=== PATIENT | male | born 1945 | race Caucasian/White ===

== ENCOUNTER 2024-04-30 20:25 | Inpatient (IN) ==
[~2024-04-30 20:25] MED LIST: KETAMINE HCL INJ 50 MG/ML 10 ML VIAL IV ONE; ROCURONIUM BROMIDE 10 MG/ML 5 ML VIAL IV ONE
[2024-04-30] MEDS ORDERED: PROPOFOL BOLUS FROM BAG IV PRN ×2 (20:45→23:45)
[2024-04-30] MEDS ORDERED: propofoL 1,000 MG/100 ML VIAL IV SCH (20:45)
--- NOTE | 2024-04-30 20:55 | Emergency Department Note ---
Impression & Plan Respiratory failure, Pleural effusion, Hypoxia ED Provider Note NAME: PHU AGUIRRE AGE: 78 SEX: M : 1945 ARRIVES VIA: Ambulance INFORMANT: Patient, EMS ED PROVIDER(S): Ferny Haley DO CHIEF COMPLAINT: Difficulty breathing HPI: The patient is a 78-year-old male who presented to the emergency department for an evaluation of difficulty breathing. The patient has a history of respiratory problems in the past. He normally wears oxygen. He was found by his daughter without his oxygen on. He was having severe difficulty breathing. They called 911. The prehospital personnel initially started the patient on supplemental oxygen but it is not doing well. When they intercepted with ALS the patient was much more obtunded and required intervention. He was placed on BiPAP with some improvement of his symptoms. Upon arrival the patient was listless but he was able to answer some questions. He states he was having no chest pain. He does complain of a cough as well as significant difficulty breathing. He denies having any fever. ROS: See above HPI for pertinent positives & negatives. A total of 10 systems reviewed and were otherwise negative. PAST MEDICAL HISTORY: See Below PAST SURGICAL HISTORY: See Below FAMILY HISTORY: See Below SOCIAL HISTORY: See Below HOME MEDICATIONS: See Below ALLERGIES: See Below VITALS: See Below PHYSICAL EXAMINATION: GENERAL: The patient was listless and slow to respond to questions. He falls asleep easily. EYES: The conjunctivae are clear. The pupils are round and reactive. EARS, NOSE, MOUTH AND THROAT: The nose is without any evidence of any deformity. NECK: The neck is nontender and supple. RESPIRATORY: Shallow respirations with diminished breath sounds were noted throughout. CARDIOVASCULAR: Tachycardic and irregular heart sounds were noted auscultation. There is no definite murmur. GASTROINTESTINAL: The abdomen is soft. Abdomen is nontender. MUSCULOSKELETAL/EXTREMITIES: There is no evidence of gross deformity full range of motion is noted in the hips and shoulders. SKIN: Chronic venous stasis changes were noted in both lower extremities. There was erythema both lower extremities with pitting edema. NEUROLOGIC: Patient is awake and oriented to person place and situation. MEDICAL DECISION MAKING: The patient is a 78-year-old male who presented to the emergency department for respiratory distress. The patient was found at home not wearing his oxygen. The patient has a history of chronic lung issues. The patient was brought to the emergency department in extremis. The patient was placed on BiPAP and did have some improvement prior to arrival but his presentation appeared to be consistent with severe respiratory distress in need of intubation. The patient was intubated in usual fashion. The patient was reevaluated multiple times. I discussed the patient's laboratory and radiographic studies with him. [facility] have agreed to evaluate the patient in the emergency department for further management and disposition. Triage Nursing notes reviewed. Prior medical records reviewed Vital Signs: reviewed and remarkable for hypoxia. Differential diagnosis: Reactive airway disease, pneumonia, pneumothorax, COPD, CHF, infections, cardiac ischemia, pulmonary embolism, musculoskeletal, gastrointestinal, as well as other pathologies. ER treatment provided: See below Diagnostics interpreted by me: ECG: EKG was obtained in the emergency department. My interpretation is atrial fibrillation at 111 bpm. There were no PVCs noted. Right bundle branch block pattern was noted. Nonspecific ST abnormalities were noted. No previous tracing was available. Cardiac Monitoring: An order was placed for continuous cardiac monitoring. The monitor shows a rate of 82 bpm with atrial fibrillation. Laboratory studies: As stated above and show below. Imaging studies: See below. Radiographic imaging was reviewed by myself Consultation(s): I discussed this case with Dr. Patel who is on-call for the [facility]. ED COURSE: Procedures: Endotracheal Intubation Indication respiratory distress. The patient was on 100% oxygen via NRB prior to the procedure. Suction, airway equipment, RSI drugs, respiratory equipment, and appropriate personnel were prepared prior to the initiation of the procedure. A time out was taken. Induction was performed with ketamine and rocuronium. After observing the clinical benefit of the medications, the airway was easily visualized utilizing a glide scope. A 8.0 size ETT tube was placed atraumatically to 23 cm using standard technique. The cuff inflated without signs of malfunction. There were bilateral breath sounds, positive colormetric change, no gastric sounds, a good capnography waveform, and post procedure pulse oximetry was 95%. Post intubation sedation and paralysis was administered using propofol. There were no complications. Critical Care: I have personally spent greater than 55 minutes of critical care time in the direct management of this patient. This includes bedside care, interpretation of diagnostic studies, and testing, discussion with consultants, patient, and family members, and other required patient management activities. This 55 minutes is in excess of all separately billable procedures. Past Med/Surg History Problem List (Updated 05/01/24 @ 00:28 by Ferny Haley DO) Hypoxia (Acute) Pleural effusion (Acute) Respiratory failure (Acute) Lactic acid acidosis Metabolic encephalopathy Acute and chronic respiratory failure with hypoxia CHF exacerbation Social History Smoking Status: Never smoker Do You Dip or Chew Tobacco: No; Hx Alcohol Use: No Hx Substance Use: No Preferred Language: Hong Konger Communication Ability: intubated Communication Ability Comment: intubated Pc Tech Required: No Beliefs That Will Affect Care: None Current Living Situation: Family Current Living Situation Comment: with son and daughter in law Other Information That Helps Us Care for You: No Feels Safe at Home: Yes Safety Concerns: Feels Safe At This Time Assistive Devices: Cane, Glasses and Walker Assistive Devices Comment: amplifier for ears Allergies Allergies Allergy/AdvReac Type Severity Reaction Status Date / Time No Known Allergies Allergy Verified 04/30/24 22:09 Results & Data (ED) Vital Signs Vital Signs - 24 hr 04/30/24 20:15 04/30/24 20:34 04/30/24 20:50 Temperature 36.4 C L Temperature Source Axillary Pulse Rate 109 H 113 H 95 H Respiratory Rate 25 H 20 Respiratory Effort / Characteristics Labored Blood Pressure 165/142 H 66/46 L Blood Pressure Mean 149 54 Pulse Oximetry 91 100 Oxygen Delivery Method CPAP Mechanical Vent Fraction of Inspired Oxygen 100 Sepsis New/Unexplained Change in Mental Status Yes Sepsis Action Taken by Nursing Physician Notified End-Tidal CO2 04/30/24 20:50 04/30/24 20:55 04/30/24 20:57 Temperature Temperature Source Pulse Rate 101 H 98 H Respiratory Rate 20 20 20 Respiratory Effort / Characteristics Blood Pressure 78/51 L Blood Pressure Mean 63 Pulse Oximetry 98 100 100 Oxygen Delivery Method Mechanical Vent Mechanical Vent Fraction of Inspired Oxygen 100 100 Sepsis New/Unexplained Change in Mental Status Sepsis Action Taken by Nursing End-Tidal CO2 37 04/30/24 21:00 04/30/24 21:05 04/30/24 21:10 Temperature Temperature Source Pulse Rate 105 H 109 H 118 H Respiratory Rate 20 20 20 Respiratory Effort / Characteristics Blood Pressure 107/62 112/80 129/95 Blood Pressure Mean 77 91 112 Pulse Oximetry 100 99 99 Oxygen Delivery Method Mechanical Vent Mechanical Vent Mechanical Vent Fraction of Inspired Oxygen 70 70 70 Sepsis New/Unexplained Change in Mental Status Sepsis Action Taken by Nursing End-Tidal CO2 04/30/24 21:15 04/30/24 21:15 04/30/24 21:20 Temperature Temperature Source Pulse Rate 106 H 112 H 109 H Respiratory Rate 16 20 20 Respiratory Effort / Characteristics Blood Pressure 121/88 121/88 129/100 Blood Pressure Mean 99 103 114 Pulse Oximetry 98 99 99 Oxygen Delivery Method Mechanical Vent Mechanical Vent Mechanical Vent Fraction of Inspired Oxygen 70 70 40 Sepsis New/Unexplained Change in Mental Status Sepsis Action Taken by Nursing End-Tidal CO2 04/30/24 21:25 04/30/24 21:30 04/30/24 21:35 Temperature Temperature Source Pulse Rate 119 H 110 H 110 H Respiratory Rate 20 20 20 Respiratory Effort / Characteristics Blood Pressure 126/86 126/90 136/107 H Blood Pressure Mean 100 102 112 Pulse Oximetry 94 94 94 Oxygen Delivery Method Mechanical Vent Mechanical Vent Mechanical Vent Fraction of Inspired Oxygen 40 40 40 Sepsis New/Unexplained Change in Mental Status Sepsis Action Taken by Nursing End-Tidal CO2 04/30/24 21:40 04/30/24 21:45 04/30/24 21:56 Temperature Temperature Source Pulse Rate 116 H 104 H 109 H Respiratory Rate 20 20 20 Respiratory Effort / Characteristics Blood Pressure 135/99 133/104 H 108/75 Blood Pressure Mean 107 109 88 Pulse Oximetry 95 95 98 Oxygen Delivery Method Mechanical Vent Mechanical Vent Mechanical Vent Fraction of Inspired Oxygen 40 40 40 Sepsis New/Unexplained Change in Mental Status Sepsis Action Taken by Nursing End-Tidal CO2 04/30/24 22:00 04/30/24 22:05 Temperature Temperature Source Pulse Rate 103 H 98 H Respiratory Rate 20 20 Respiratory Effort / Characteristics Blood Pressure 136/102 H 131/100 Blood Pressure Mean 109 114 Pulse Oximetry 94 93 Oxygen Delivery Method Mechanical Vent Mechanical Vent Fraction of Inspired Oxygen 40 40 Sepsis New/Unexplained Change in Mental Status Sepsis Action Taken by Nursing End-Tidal CO2 32 Home Medications Current Medication List: was personally reviewed by me Laboratory Data Attestation: I reviewed the patient's lab results. 04/30/24 20:32 04/30/24 20:32 Lab Results 04/30/24 04/30/24 04/30/24 Range/Units 20:32 21:01 21:03 WBC 12.19 H (4.8-10.8) K/ul RBC 4.39 L (4.70-6.10) M/uL Hgb 12.8 L (14.0-18.0) g/dl POC Hgb 12.9 L (14.0-18.0) g/dl Hct 44.8 (42.0-52.0) % POC Hct 38 L (42-52) % MCV 102.1 H (80.0-100.0) fL MCH 29.2 (25.0-34.0) pg MCHC 28.6 L (32.0-36.0) g/dL RDW Std Deviation 67.2 H (36.4-46.3) fL RDW Coeff of Brent 18.0 H (11.5-14.5) % Plt Count 209 (130-400) K/uL MPV 11.5 (9.4-12.4) fL Immature Gran % (Auto) 1.2 % Neut % (Auto) 89.5 % Lymph % (Auto) 4.3 % Crawford % (Auto) 4.6 % Eos % (Auto) 0.1 % Baso % (Auto) 0.3 % Neut # (Auto) 10.91 H (1.40-6.50) K/uL Lymph # (Auto) 0.52 L (1.20-3.40) K/uL Crawford # (Auto) 0.56 (0.11-0.59) K/uL Eos # (Auto) 0.01 (0.00-0.50) K/uL Baso # (Auto) 0.04 (0.00-0.20) K/uL Immature Gran # (Auto) 0.15 (0.01-0.20) K/uL Polychromasia 1+ Ovalocytes 1+ PT 12.7 H (9.0-12.0) Seconds INR 1.2 H (0.9-1.1) APTT 27 (21-31) Seconds PTT Ratio 1.0 POC pH 7.47 H (7.35-7.45) POC pCO2 53 H (35-46) mmHg POC pO2 185 H (80-95) mmHg POC HCO3 39 H (19-24) karyna/L POC Total CO2 40 H (24-31) mmol/L POC Base Excess 15.0 H (-9-1.8) karyna/L POC ABG O2 Sat 100.0 H (90-95) % POC Sodium 140 (135-144) mmol/L Sodium 142 (136-145) mmol/L POC Potassium 4.2 (3.3-5.0) mmol/L Potassium 4.7 (3.5-5.1) mmol/L Chloride 93 L (98-107) mmol/L Carbon Dioxide 43 H* (21-32) mmol/L Anion Gap 6 (3-11) BUN 24 H (6-23) mg/dl Creatinine 1.20 (0.6-1.4) mg/dl Est Cr Clr Drug Dosing 67.7 ml/min eGFR 61.90 BUN/Creatinine Ratio 20.0 (10-20) Glucose 151 H (70-99(Fasting)) mg/dl Lactate 3.3 H* (0.4-2.0) mmol/L Calcium 9.8 (8.6-10.3) mg/dl Magnesium 2.6 H (1.7-2.4) mg/dl Total Bilirubin 1.1 H (0.2-1.0) mg/dl Direct Bilirubin 0.4 H (0-0.2) mg/dl AST 30 (13-39) U/L ALT 17 (7-52) U/L Alkaline Phosphatase 93 (34-104) U/L Troponin I High Sens 22.1 H (0-20) pg/ml B-Natriuretic Peptide 506 H (0-100) pg/ml Total Protein 7.5 (6.0-8.3) gm/dl Albumin 3.9 (3.4-5.0) gm/dl Procalcitonin 0.19 (0-0.5) ng/ml Urine Color Dark Yellow Urine Appearance Turbid A (Clear) Urine pH 5.0 (4.5-7.5) Ur Specific Witherbee 1.030 (1.000-1.030) Urine Protein 3+ H (Negative) Urine Glucose (UA) 3+ H (Negative) Urine Ketones 1+ H (Negative) Urine Blood Negative (Negative) Urine Nitrite Negative (Negative) Urine Bilirubin 2+ H (Negative) Urine Urobilinogen Negative (Negative) Ur Leukocyte Esterase Trace H (Negative) Urine WBC (Auto) 21-50 H (0-5) /hpf Urine RBC (Auto) 11-20 H (0-2) /hpf U Hyaline Cast (Auto) >20 H (0-2) /lpf U Epithel Cells (Auto) 0-2 (0-2) /hpf Urine Bacteria (Auto) 2+ H (None Seen) Calcium Oxalate Crystal Present A (None Prsent) Amorphous Sediment Present A (None Prsent) Administered Medications Norepinephrine Bitartrate (Levophed/D5w) 4 mg in 250 mls @ 23.7 mls/hr IV .[id number] [facility]; Protocol Stop: 05/30/24 23:29 Last Admin: 04/30/24 23:51 Dose: 0.05 mcg/kg/min, 23.7 mls/hr Documented By: [id number] Co-signed By: TP Heparin Sodium/Dextrose (Heparin [id number] Unit/500 Ml D5w) 25,000 units in 500 mls @ 20 mls/hr IV .Q24H GERALDINE; Protocol Stop: 05/30/24 23:44 Last Admin: 05/01/24 00:00 Dose: 1,000 units/hr, 20 mls/hr Documented By: [id number] Co-signed By: TP Propofol (Diprivan) 1,000 mg in 100 mls @ 22.752 mls/hr IV .Q4H24M [facility]; Protocol Stop: 05/03/24 23:44 Last Titration: 04/30/24 23:45 Dose: 30 mcg/kg/min, 22.8 mls/hr Documented By: [id number] Admin: 04/30/24 23:30 Dose: 20 mcg/kg/min, 15.2 mls/hr Documented By: [id number] Co-signed By: HSM Insulin Aspart (Insulin Aspart Per Unit Charge) 0 units SC Q6 GERALDINE Stop: 05/31/24 00:00 Last Admin: 05/01/24 00:17 Dose: Not Given Documented By: [id number] Discontinued Medications Heparin Sodium/Dextrose (Heparin Iv Adult Wt-Based Low-Dose *No* Initial Bolus Protocol) 1 each IV ONE STA; Protocol Stop: 04/30/24 23:34 Last Admin: 05/01/24 00:00 Dose: 1 each Documented By: [id number] Sodium Chloride (Nss) 1,000 mls @ 999 mls/hr IV .Q1H1M ONE Stop: 04/30/24 21:52 Last Infusion: 04/30/24 21:58 Dose: Infused Documented By: Admin: 04/30/24 21:07 Dose: 999 mls/hr Documented By: FLAVIO Ceftriaxone Sodium (Rocephin) 2,000 mg in 50 mls @ 100 mls/hr IV NOW STA Stop: 04/30/24 21:21 Last Infusion: 04/30/24 21:58 Dose: Infused Documented By: Admin: 04/30/24 21:22 Dose: 100 mls/hr Documented By: FLAVIO Ioversol (Optiray 320 125ml) 119 ml IV ONCE ONE Stop: 04/30/24 22:21 Last Admin: 04/30/24 22:20 Dose: 119 ml Documented By: [email or web address] Miscellaneous (Rapid Sequence Induction Bag) Confirm Administered Dose 1 each N/A .STK-MED ONE Stop: 04/30/24 20:21 Last Admin: 04/30/24 23:59 Dose: Not Given Documented By: [id number] Miscatalinoaneous (Stat Iv Infusion Titration Per Protocol) 1 each N/A NOW STA Stop: 04/30/24 20:46 Last Admin: 05/01/24 00:00 Dose: Not Given Documented By: [id number] Propofol (Propofol Iv Emulsion 10 Mg/Ml 100 Ml Vial) Confirm Administered Dose 1,000 mg IV .STK-MED ONE Stop: 04/30/24 20:33 Last Admin: 04/30/24 21:07 Dose: Not Given Documented By: FLAVIO Propofol (Propofol Iv Emulsion 10 Mg/Ml 100 Ml Vial) Confirm Administered Dose 1,000 mg IV .STK-MED ONE Stop: 04/30/24 22:51 Last Admin: 05/01/24 00:00 Dose: Not Given Documented By: [id number] Imaging Data Attestation: I personally reviewed and interpreted this imaging study as follows: My Impression: 1 view chest x-ray was obtained in the emergency department. My interpretation is pleural effusions noted bilaterally, final report below. CT of the brain was obtained in the emergency department. My interpretation is no intracranial hemorrhage or mass effect, final report below Radiologist's Impression: Chest X-Ray 04/30/24 20:44 Exam(s): XR CXR 1 VIEW EXAM: XR Chest, 1 View CLINICAL HISTORY: Reason for exam: Sepsis. TECHNIQUE: Frontal view of the chest. COMPARISON: No relevant prior studies available. FINDINGS: Lungs: Bibasilar airspace disease, atelectasis or pneumonia. Interstitial prominence. Pleural space: Small pleural effusions, right greater than left. No pneumothorax. Heart: Cardiac silhouette is magnified on this AP projection. There is vascular congestion. Bones/joints: No acute fracture. No dislocation. Tubes, lines and devices: Endotracheal tube 2.4 cm from the joaquín. IMPRESSION: 1. Bibasilar airspace disease, atelectasis or pneumonia. 2. Endotracheal tube 2.4 cm from the joaquín. 3. Small pleural effusions, right greater than left. 4. Vascular congestion and likely interstitial edema. Electronically signed by: Martin Escalera M.D. 04/30/24 22:42 PM Abdomen/Pelvis CT 04/30/24 21:21 Exam(s): CT ABDOMEN + PELVIS With Contrast IV Amt: 119ml optiray 320 EXAM: CT Abdomen and Pelvis With Intravenous Contrast CLINICAL HISTORY: Reason for exam: resp failure. TECHNIQUE: Axial computed tomography images of the abdomen and pelvis with intravenous contrast. CTDI is 76.84 mGy and DLP is 2666.03 mGy-cm. Automated exposure control was utilized for the study. A dose lowering technique was utilized adhering to the principles of ALARA. CONTRAST: Patient received 119ml optiray 320 of IV contrast COMPARISON: No relevant prior studies available. FINDINGS: Lung bases: Moderate pleural effusions, compressive atelectasis in the right greater than left lungs, and pulmonary edema within the aerated lungs. Heart: Coronary artery atherosclerosis. ABDOMEN: Liver: Unremarkable. No mass. Gallbladder and bile ducts: Cholelithiasis and gallbladder sludge. No evidence of cholecystitis. No biliary dilatation. Pancreas: Unremarkable. No mass. No ductal dilation. Spleen: Unremarkable. No splenomegaly. Adrenals: Indeterminate right adrenal mass measuring 3.8 cm. Kidneys and ureters: Simple bilateral renal cysts, largest in the left kidney measuring 71 mm; no follow-up indicated. Symmetric renal enhancement. No hydronephrosis. Stomach and bowel: No bowel obstruction. Distal colonic diverticulosis without diverticulitis. PELVIS: Appendix: Appendix not identified. No secondary signs of appendicitis. Bladder: Urinary bladder decompressed around a Esteves catheter. Reproductive: Prostate is normal in size. ABDOMEN and PELVIS: Intraperitoneal space: Mild ascites. Bones/joints: No acute fracture or dislocation. Soft tissues: Mild anasarca. Vasculature: Aortoiliac atherosclerosis. No aortic aneurysm. Moderate stenosis proximal segment of the SMA. Lymph nodes: Unremarkable. No enlarged lymph nodes. Tubes, lines and devices: Enteric tube extends to the upper-most stomach. IMPRESSION: 1. Moderate pleural effusions, compressive atelectasis in the right greater than left lungs, and pulmonary edema within the aerated lungs. 2. Mild ascites. 3. Indeterminate right adrenal mass measuring 3.8 cm. Consider a low dose, non-contrast adrenal CT or chemical-shift adrenal MRI follow-up study. 4. Enteric tube extends to the upper-most stomach. Consider advancing further into the stomach, approximately 7 cm. 5. Stenosis in the proximal SMA appearing moderate. Electronically signed by: Martin Escalera M.D. 04/30/24 23:[address] 04/30/24 21:21 Exam(s): CT C SPINE EXAM: CT Cervical Spine Without Intravenous Contrast CLINICAL HISTORY: Reason for exam: resp failure. TECHNIQUE: Axial computed tomography images of the cervical spine without intravenous contrast. CTDI is 26.96 mGy and DLP is 583.4 mGy-cm. Automated exposure control was utilized for the study. A dose lowering technique was utilized adhering to the principles of ALARA. COMPARISON: No relevant prior studies available. FINDINGS: Vertebrae: Osteopenia. No acute fracture or subluxation. Discs/spinal canal/neural foramina: Multilevel disc, facet, and uncovertebral joint degeneration. Partially calcified disc bulge producing moderate to severe central canal stenosis at the C5-C6 level. Varying degrees of multilevel foraminal narrowing, severe on the left at C3-C4 and C5-C6. Soft tissues: Unremarkable. Pleural space: Layering bilateral pleural effusions. Tubes, lines and devices: Endotracheal tube and enteric tube are in place. IMPRESSION: 1. No acute osseous findings in the cervical spine. 2. Partially calcified disc bulge producing moderate to severe central canal stenosis at the C5-C6 level. 3. Varying degrees of multilevel foraminal narrowing, severe on the left at C3-C4 and C5-C6. 4. Layering bilateral pleural effusions. Electronically signed by: Martin Escalera M.D. 04/30/24 23:45 PM Chest CTA 04/30/24 21:21 Exam(s): CTA CHEST IV Amt: 119ml optiray 320 EXAM: CT Angiography Chest With Intravenous Contrast CLINICAL HISTORY: Reason for exam: PE. TECHNIQUE: Axial computed tomographic angiography images of the chest with intravenous contrast. CTDI is 76.84 mGy and DLP is 1666.02 mGy-cm. Automated exposure control was utilized for the study. A dose lowering technique was utilized adhering to the principles of ALARA. MIP reconstructed images were created and reviewed. COMPARISON: No relevant prior studies available. FINDINGS: Pulmonary arteries: Adequate pulmonary artery opacification. Enlarged main pulmonary artery suggesting palmar arterial hypertension. No evidence of acute pulmonary embolism. Aorta: No acute findings. No aortic aneurysm or dissection. Lungs: Compressive atelectasis within the bilateral lung gaytan with complete right lower lobe collapse. Aerated lung gaytan demonstrate ground-glass density and septal thickening suggesting pulmonary edema. No mass. Pleural space: Moderate right and small left pleural effusion. No pneumothorax. Heart: Coronary artery atherosclerosis. Borderline heart size. No pericardial effusion. Bones/joints: No acute fracture. No dislocation. Soft tissues: Gynecomasty. Lymph nodes: Unremarkable. No enlarged lymph nodes. Upper abdomen: Reported separately. Tubes, lines and devices: Endotracheal tube terminates above the joaquín. Enteric tube with tip just beyond the gastroesophageal junction. IMPRESSION: 1. No evidence of acute pulmonary embolism. 2. Aerated lung gaytan demonstrate ground-glass density and septal thickening suggesting pulmonary edema. 3. Moderate right and small left pleural effusion. 4. Compressive atelectasis within the bilateral lung gaytan with complete right lower lobe collapse. 5. Enteric tube with tip just beyond the gastroesophageal junction. Consider advancing further into the stomach. Electronically signed by: Martin Escalera M.D. 04/30/24 23:[address] 04/30/24 21:21 Exam(s): CT HEAD Without Contrast EXAM: CT Head Without Intravenous Contrast CLINICAL HISTORY: Reason for exam: resp failure. TECHNIQUE: Axial computed tomography images of the head/brain without intravenous contrast. CTDI is 117.98 mGy and DLP is 1898.2 mGy-cm. Automated exposure control was utilized for the study. A dose lowering technique was utilized adhering to the principles of ALARA. COMPARISON: No relevant prior studies available. FINDINGS: Brain: Age-related parenchymal volume loss. Mild chronic small vessel ischemic change. Rothman-white matter differentiation maintained. No hemorrhage, mass effect, parenchymal edema, or midline shift. Ventricles: No hydrocephalus. Bones/joints: No acute fracture. Soft tissues: Unremarkable. Vasculature: Intracranial atherosclerosis. Sinuses: Mild mucosal thickening in the ethmoids. Mastoid air cells: No significant mastoid effusion. Orbits: Lens replacements. IMPRESSION: No acute intracranial process. Electronically signed by: Martin Escalera M.D. 04/30/24 23:24 PM KUB X-Ray 04/30/24 21:24 Exam(s): XR KUB EXAM: XR Abdomen, 1 View CLINICAL HISTORY: Reason for exam: OGT plcement. TECHNIQUE: Frontal supine view of the abdomen/pelvis. COMPARISON: No relevant prior studies available. FINDINGS: Gastrointestinal tract: Nonobstructive bowel gas pattern. Enteric tube with tip and side-port in the stomach. Bones/joints: Lumbar spondylosis. IMPRESSION: Enteric tube with tip and side port in the stomach. Electronically signed by: Martin Escalera M.D. 04/30/24 23:04 PM Discharge Plan Visit Data Chief Complaint: Respiratory Distress Stated Complaint: RESPIRATORY DISTRESS, LETHARGIC ED Provider: Ferny Haley Discharge Problem: Respiratory failure, Pleural effusion, Hypoxia Patient Disposition: Admitted As Inpatient Discharge Instructions Interventions: ED Discharge Assessment Last Done: 04/30/24 22:41
[2024-04-30] MEDS: PROPOFOL IV EMULSION 10 MG/ML 100 ML VIAL IV ONE (21:07)
[2024-04-30] MEDS: SODIUM CHLORIDE 0.9% 1,000 ML IV ONE (21:07)
[2024-04-30 21:15] LABS: iSTAT Arterial Blood Gas HCO3 39 meg/L (19-24); iSTAT Arterial Blood Gas pCO2 53 mmHg (35-46); iSTAT Arterial Blood Gas pH 7.47 (7.35-7.45); iSTAT Arterial Blood Gas pO2 185 mmHg (80-95); iSTAT Carbon Dioxide 40 mmol/L (24-31); iSTAT Hematocrit 38 % (42-52); iSTAT Hemoglobin 12.9 g/dl (14.0-18.0); iSTAT Potassium 4.2 mmol/L (3.3-5.0); iSTAT Sodium 140 mmol/L (135-144)
[2024-04-30] MEDS: cefTRIAXone SODIUM 2,000 MG/50 ML BAG IV STA (21:22)
[2024-04-30 21:26] LABS: Amorphous Sediment Urine Present (None Prsent); Appearance Urine Turbid (Clear); Bacteria Urine Automated 2+ (None Seen); Bilirubin Urine 2+ (Negative); Blood Urine Negative (Negative); Calcium Oxalate Crystals Urine Present (None Prsent); Cast Urine Automated >20 /lpf (0-2); Color Urine Dark Yellow; Epithelial Cell Urine Auto 0-2 /hpf (0-2); Glucose Urine UA 3+ (Negative); Ketones Urine 1+ (Negative); Leukocyte Esterase Urine Trace (Negative); Nitrite Urine Negative (Negative); Protein Urine 3+ (Negative); Urobilinogen Urine Negative (Negative); WBC Urine Automated 21-50 /hpf (0-5)
[2024-04-30 21:30] LABS: Hematocrit (blood only) 44.8 % (42.0-52.0); Hemoglobin 12.8 g/dl (14.0-18.0); Mean Corpuscular Hemoglobin 29.2 pg (25.0-34.0); Mean Corpuscular Hgb Conc 28.6 g/dL (32.0-36.0); Mean Corpuscular Volume 102.1 fL (80.0-100.0); Mean Platelet Volume 11.5 fL (9.4-12.4); Platelet Count 209 K/uL (130-400); RDW Standard Deviation 67.2 fL (36.4-46.3); Red Blood Count 4.39 M/uL (4.70-6.10); White Blood Count 12.19 K/ul (4.8-10.8)
[2024-04-30 21:34] LABS: Albumin Level 3.9 gm/dl (3.4-5.0); Bilirubin Direct 0.4 mg/dl (0-0.2); Bilirubin,Total 1.1 mg/dl (0.2-1.0); Calcium 9.8 mg/dl (8.6-10.3); Creatinine Clr Calc Pharmacy 67.7 ml/min; Magnesium 2.6 mg/dl (1.7-2.4); Potassium 4.7 mmol/L (3.5-5.1); Total Protein 7.5 gm/dl (6.0-8.3)
[2024-04-30 21:37] LABS: Troponin I High Sensitivity 22.1 pg/ml (0-20)
[2024-04-30 21:39] LABS: INR 1.2 (0.9-1.1); Partial Thromboplastin Time 27 Seconds (21-31); Prothrombin Time 12.7 Seconds (9.0-12.0)
[2024-04-30] MEDS: OPTIRAY 320 125ml IV ONE (22:20)
[2024-04-30 22:22] LABS: Basophils # (auto) 0.04 K/uL (0.00-0.20); Basophils % (auto) 0.3 %; Eosinophils # (auto) 0.01 K/uL (0.00-0.50); Eosinophils % (auto) 0.1 %; Immature Granulocytes # (auto) 0.15 K/uL (0.01-0.20); Immature Granulocytes % (auto) 1.2 %; Lymphocytes # (auto) 0.52 K/uL (1.20-3.40); Lymphocytes % (auto) 4.3 %; Monocytes # (auto) 0.56 K/uL (0.11-0.59); Monocytes % (auto) 4.6 %; Neutrophils # (auto) 10.91 K/uL (1.40-6.50); Neutrophils % (auto) 89.5 %; Ovalocytes 1+; Polychromasia 1+
--- NOTE | 2024-04-30 22:41 | History & Physical Report ---
Date of Service April 30, 2024 Assessment & Plan (1) Metabolic encephalopathy: (2) Acute and chronic respiratory failure with hypoxia: (3) CHF exacerbation: (4) Respiratory failure: (5) Pleural effusion: (6) Hypoxia: Plan 78 yo male PMHx CAD, HFpEF, Afib on warfarin, T2DM w/peripheral neuropathy, OHS, chronic venous stasis, chronic hypoxic respiratory failure on chronic home O2 (2-2.5L) admitted after being found down at home for an undetermined amount of time. NEURO: CT imaging negative for acute pathology MRI ordered Sedation per ICU CARDIAC: Hold all antihypertensives Pressors per ICU A fib currently without RVR Diurese as indicated Heparin drip given subtherapeutic INR and mild troponin leak BNP elevated, baseline is normal per dc from [place] last year Continuous cardiac monitoring RESPIRATORY: Intubated on ventilator, management per ICU CT Chest: no PE, +ground glass opacities/septal thickening, R>L pleural effusion with associated compressive atelectasis Monitor ABG/VBG Pulmonary toilet GI: NPO OG tube in place Nutrition consult RENAL/LYTES: Mild ORI, baseline 0.99 Follow renal function, electrolytes - replete as indicated Esteves in place ENDO: Hx of t2DM on metformin and Jariance - held ISS - goal BG 140-180 HEME: INR subtherapeutic Macrocytic anemia ID: +non-COVID19 coronavirus Infected appearing urine Follow BCx and UCx On CTX and azithromycin FENGI: intubated, OG tube in place, NPO Code status: full DVT prophylaxis: heparin Isolation: droplet Disposition: ICU History of Present Illness Primary Care Provider: Zeeshan Hare, DO 78 yo male PMHx CAD, HFpEF, Afib on warfarin, T2DM w/peripheral neuropathy, OHS, chronic venous stasis, chronic hypoxic respiratory failure on chronic home O2 (2-2.5L) admitted after being found down at home for an undetermined amount of time. Collateral provided by [id number] states patient was in his usual state of health this morning. He attempted to take a nap in his recliner and seems to have fallen out. History is otherwise limited due to intubated/sedated state. He was hospitalized at [facility] from 10/04/23 to 10/15/23 for what seems to be a similar presentation of respiratory failure. At that time Echo was performed that showed EF of 64%, anterolateral, lateral, inferolateral, and inferior hypokinesis, no LVH, biatrial enlargement, calcified aortic valve w/o stenosis, MR, TR, elevated pulmonary arterial pressure, dilated IVC. Cr on discharge was 0.99. Was discharged on BiPAP and Lasix 40mg BID. ED course: Enroute to hospital patient's respiratory status progressively declined. BiPAP was initiated enroute. On arrival to the hospital pt was listless and ultimately intubated EKG afib w/RVR later regular rate Labs remarkable for mild leukocytosis, macrocytic anemia, subtherapeutic INR, hypercarbia, elevated lactate, mild troponin elevation, elevated BNP, non- COVID19 coronavirus +, infected appearing UA Imaging: no acute head pathology, chest imaging + for b/l pleural effusion, abdomen CT demonstrates stable 3.8cm adrenal mass (noted during hospitalization at [place]) Allergies Allergy/AdvReac Type Severity Reaction Status Date / Time No Known Allergies Allergy Verified 04/30/24 22:09 Home Medications Medication Instructions Recorded Confirmed Type ferrous sulfate 325 mg (65 mg 325 mg PO Q48H 05/01/24 05/01/24 History iron) tablet,delayed release metformin 1,000 mg tablet 1,000 mg PO AMPM 05/01/24 05/01/24 History metformin 500 mg tablet 500 mg PO QDL 05/01/24 05/01/24 History metoprolol succinate 100 mg 150 mg PO DAILY 05/01/24 05/01/24 History tablet,extended release 24 hr Past Med/Surg History Problem List (Updated 05/01/24 @ 00:28 by Ferny Haley DO) Hypoxia (Acute) Pleural effusion (Acute) Respiratory failure (Acute) Lactic acid acidosis Metabolic encephalopathy Acute and chronic respiratory failure with hypoxia CHF exacerbation Social History Smoking Status: Never smoker Do You Dip or Chew Tobacco: No; Hx Alcohol Use: No Hx Substance Use: No Preferred Language: Lao Communication Ability: Unable Communication Ability Comment: intubated Stripper Apprentice Required: No Beliefs That Will Affect Care: None Current Living Situation: Family Current Living Situation Comment: with son and daughter in law Other Information That Helps Us Care for You: No Feels Safe at Home: Yes Safety Concerns: Feels Safe At This Time Assistive Devices: Cane, Hospital Bed, Oxygen - Continuous, Walker and Wheelchair Assistive Devices Comment: amplifier for ears Review of Systems Review of Systems: reviewed, per HPI Physical Exam Physical Exam: Constitutional: ill-appearing, no acute distress, intubated, sedated HEENT: NCAT, no conjunctival injection, ET and gastric tubes in place, pupils pinpoint CV: +afib, extremities well-perfused, +b/l LE edema Resp: ventilated, diminished breath sounds in bases GI: obese, soft MSK: no gross deformities appreciated Skin: warm, dry, venous stasis discoloration in b/l LE Neuro: intubated, sedated Results & Data Results & Data Vital Signs (Past 12 Hours) Vital Signs Temp Pulse Resp BP Pulse Ox O2 Del Method FiO2 04/30/24 22:05 98 H 20 131/100 93 Mechanical Vent 40 04/30/24 22:00 103 H 20 136/102 H 94 Mechanical Vent 40 04/30/24 21:56 109 H 20 108/75 98 Mechanical Vent 40 04/30/24 21:45 104 H 20 133/104 H 95 Mechanical Vent 40 04/30/24 21:40 116 H 20 135/99 95 Mechanical Vent 40 04/30/24 21:35 110 H 20 136/107 H 94 Mechanical Vent 40 04/30/24 21:30 110 H 20 126/90 94 Mechanical Vent 40 04/30/24 21:25 119 H 20 126/86 94 Mechanical Vent 40 04/30/24 21:20 109 H 20 129/100 99 Mechanical Vent 40 04/30/24 21:15 112 H 20 121/88 99 Mechanical Vent 70 04/30/24 21:15 106 H 16 121/88 98 Mechanical Vent 70 04/30/24 21:10 118 H 20 129/95 99 Mechanical Vent 70 04/30/24 21:05 109 H 20 112/80 99 Mechanical Vent 70 04/30/24 21:00 105 H 20 107/62 100 Mechanical Vent 70 04/30/24 20:57 98 H 20 100 Mechanical Vent 04/30/24 20:55 101 H 20 78/51 L 100 Mechanical Vent 100 04/30/24 20:50 95 H 20 66/46 L 100 Mechanical Vent 100 04/30/24 20:34 113 H 04/30/24 20:15 36.4 C L 109 H 25 H 165/142 H 91 CPAP Code Status & VTE Plan VTE Prophylaxis Plan VTE Prophylaxis will be ordered: Yes Critical Care Time 40 minutes Supervising Physician Co-Signing Physician Notes Attending addendum: I have physically seen this patient, have supervised the medical residents activities, and agree with the H&P unless as otherwise noted. Assessment and Plan: The patient is a 78-year-old male past medical history occluding CAD, HFpEF, A- fib on warfarin complex pelvis type II, peripheral neuropathy, OHS, chronic venous stasis, chronic hypoxic respiratory failure on chronic home oxygen 2 to 2.5 L, who was found down at home by family for unknown interval time. Patient was intubated in the emergency department prior to hospitalist assessment, and will be admitted to ICU for ongoing treatment Acute respiratory failure with hypoxia and hypercapnia/admitted to the ICU after being intubated- Further management per ICU team Serial CBC with differential, chemistry profile, coagulation profile, ABGs CT scan chest shows no PE, groundglass opacities and septal thickening noted, right greater than left pleural effusions with associated compressive atelectasis DuoNebs every 2 hours as needed Further diuresis and management per ICU team Resident Activity Tracking Resident Involvement: Resident Care Provided Care Provided: Adult Hospital Medicine
--- NOTE | 2024-04-30 22:43 | XRay Report ---
Exam(s): XR CXR 1 VIEW EXAM: XR Chest, 1 View CLINICAL HISTORY: Reason for exam: Sepsis. TECHNIQUE: Frontal view of the chest. COMPARISON: No relevant prior studies available. FINDINGS: Lungs: Bibasilar airspace disease, atelectasis or pneumonia. Interstitial prominence. Pleural space: Small pleural effusions, right greater than left. No pneumothorax. Heart: Cardiac silhouette is magnified on this AP projection. There is vascular congestion. Bones/joints: No acute fracture. No dislocation. Tubes, lines and devices: Endotracheal tube 2.4 cm from the joaquín. IMPRESSION: 1. Bibasilar airspace disease, atelectasis or pneumonia. 2. Endotracheal tube 2.4 cm from the joaquín. 3. Small pleural effusions, right greater than left. 4. Vascular congestion and likely interstitial edema. Electronically signed by: Martin Escalera M.D. 04/30/24 22:42 PM
--- NOTE | 2024-04-30 23:03 | Critical Care Consultation ---
Date of Consultation April 30, 2024 Assessment & Plan (1) CHF exacerbation: (2) Acute and chronic respiratory failure with hypoxia: (3) Metabolic encephalopathy: (4) Lactic acid acidosis: Plan Reason Critically Ill: Acute on chronic hypoxemic respiratory failure Acute exacerbation of heart failure Medication noncompliance Subtherapeutic INR Acute metabolic encephalopathy, rule out CVA Bilateral pleural effusion Lactic acidosis likely 2/2 hypoxemia Neuro - CT head negative for bleed or acute ischemic changes. No CTA pursued Order MRI to rule out occult CVA RASS GOAL 0 to -1 APAP PRN pain/fever Continue propofol infusion. Fentanyl PRN Cardiac - Hold antihypertensives Re-evaluate volume status with POCUS on arrival to ICU Continue norepinephrine for MAP goal > 65mmHg IV diuresis pending POCUS TTE pending Start heparin infusion BNP 506 with unknown baseline Troponin 36.6, admit EKG non-ischemic Respiratory - Continue mechanical ventilation SAT/SBT daily CT chest pending SpO2 88-92% Pulmonary hygiene Duoneb PRN HOB 30 Repeat ABG, ventilator adjustments as needed Target baseline pCO2 GI - Diet: NPO except meds via OGT, will start TF tomorrow if unable to extubate SUP: PPI Bowel regimen: Senna, Miralax RENAL/LYTES - Baseline Cr unknown, current Cr 1.2 Replete electrolytes as indicated Esteves for accurate I/Os Maintain net even to net negative Diuresis Trend lactate to clearance ENDO - No acute concerns BG 140-180 per SCCM guidelines ISS if needed while inpatient HEME - Subtherapeutic INR ID - Ceftriaxone and azithromycin, can likely D/C in 24-48 hours if culture data negative RVP pending, BCx pending, UA +, UCx pending, sputum culture as able, procalcitonin 0.19 LINES/TUBES/DRAINS - ETT (Day #1) OGT (Day #1) Esteves (Day #1) PIV x2 DVT PROPHYLAXIS - Heparin infusion I have personally spent 48 minutes of critical care time in the direct management of this patient. This is a life/limb threatening event. This includes time spent evaluating patient, direct bedside care, chart review, placing orders, interpretation of diagnostic studies, discussion with consultants, patient, and family members, as well as other required patient management activities. This time is exclusive of all separately billable procedures, and teaching time and separate from and in addition to any other critical care service time. Thank you for allowing us to participate in the care of this patient. Please refer to my attending physician's documentation for any further recommendations. History of Present Illness Reason for Consultation: Respiratory failure Requesting Physician: Weston Attending Physician: Weston History of Present Illness Mr. Niles Cortez is a 78YOM with a history of obesity, CHF, AF on warfarin, NIDDMII, hypertension who presented to [facility] ED from home on the evening of 04/30/2024 after being found down by his daughter in law. On arrival to ED patient was in some respiratory distress. He was placed on BIPAP with some improvement. He was complaining of cough and dyspnea in ED. He was subsequently intubated with an 8.0 ETT without incident. CTH negative. CXR showing pleural effusion. Remainder of imaging pending. Work-up thus far remarkable for leukocytosis with neutrophil predominance, subtherapeutic INR, metabolic alkalosis, lactic acidosis (3.3), BNP 506, procalcitonin 0.19, UA + LE and bacteria. ABG just after intubation (was on BIPAP) 7.47/53/185/39. EKG with AFRVR. Received ceftriaxone, 1L IVF. He is admitted to ICU for continuation of care. Patient seen on arrival to ICU 110. He is intubated and unresponsive. Not currently on sedation. MAP > 65mmHg. Afebrile. Non-tachycardic. He is moving his lips and hands, squeezes hands occasionally to command. No movement of legs. Pupils pinpoint. ROS unable to be taken due to mechanical ventilation. I spoke to patient's caregiver/ALYSSA Carvajal via telephone. She tells me that this morning Niles was doing ok, his vital signs were stable. He was wearing his normal 2-2.5L O2. He ate breakfast. She tells me he did not want to eat lunch which is unusual for him. He refuses to lay in the bed and prefers to recliner. He sometimes slides out of the recliner, which is what occurred today. Family found him on the ground with his oxygen removed. Less responsive. She was unable to get an oxygen saturation, thus called 911. He last took his medications yesterday. He is wholly non-compliant with his prescribed BIPAP. No matter what Wei does she is unable to get him to comply. Allergies Allergy/AdvReac Type Severity Reaction Status Date / Time No Known Allergies Allergy Verified 04/30/24 22:09 Patient History Social History Smoking Status: Never smoker Do You Dip or Chew Tobacco: No; Hx Alcohol Use: No Hx Substance Use: No Preferred Language: Indian Communication Ability: intubated Communication Ability Comment: intubated Senior Storage Engineer Required: No Beliefs That Will Affect Care: None Current Living Situation: Family Current Living Situation Comment: with son and daughter in law Other Information That Helps Us Care for You: No Feels Safe at Home: Yes Safety Concerns: Feels Safe At This Time Assistive Devices: Cane, Glasses and Walker Assistive Devices Comment: amplifier for ears Review of Systems Review of Systems: Unobtainable due to endotracheal tube Physical Exam Constitutional: + ill appearing, + morbidly obese and + mechanically ventilated; no acute distress Eyes: + conjunctival abnormality, + anicteric sclerae and + pinpoint pupils ENMT: external ear and nose normal, oropharynx normal Neck: normal visual inspection, trachea midline and + thick neck Respiratory: symmetric chest movement Auscultation: + diminished lung sounds and + crackles; no rhonchi and no wheezes Cardiovascular: Rate/Rhythm: regular rate and + irregularly irregular Heart Sounds: + murmur Vessels: no JVD Extremities: normal capillary refill and + pedal edema Gastrointestinal (Abdomen): Inspection/Auscultation: normal bowel sounds and + significant pannus; abdomen not distended Skin: normal turgor, + skin atrophy, + crusts, + dry skin and + striae; no rashes Moisture of groin likely fungal Neurologic: + obtunded moves upper extremities Genitourinary: Esteves in place. buried penis Results & Data Results & Data Vital Signs (Past 12 Hours) Vital Signs Temp Pulse Resp BP Pulse Ox O2 Del Method FiO2 04/30/24 22:05 98 H 20 131/100 93 Mechanical Vent 40 04/30/24 22:00 103 H 20 136/102 H 94 Mechanical Vent 40 04/30/24 21:56 109 H 20 108/75 98 Mechanical Vent 40 04/30/24 21:45 104 H 20 133/104 H 95 Mechanical Vent 40 04/30/24 21:40 116 H 20 135/99 95 Mechanical Vent 40 04/30/24 21:35 110 H 20 136/107 H 94 Mechanical Vent 40 04/30/24 21:30 110 H 20 126/90 94 Mechanical Vent 40 04/30/24 21:25 119 H 20 126/86 94 Mechanical Vent 40 04/30/24 21:20 109 H 20 129/100 99 Mechanical Vent 40 04/30/24 21:15 112 H 20 121/88 99 Mechanical Vent 70 04/30/24 21:15 106 H 16 121/88 98 Mechanical Vent 70 04/30/24 21:10 118 H 20 129/95 99 Mechanical Vent 70 04/30/24 21:05 109 H 20 112/80 99 Mechanical Vent 70 04/30/24 21:00 105 H 20 107/62 100 Mechanical Vent 70 04/30/24 20:57 98 H 20 100 Mechanical Vent 04/30/24 20:55 101 H 20 78/51 L 100 Mechanical Vent 100 04/30/24 20:50 95 H 20 66/46 L 100 Mechanical Vent 100 04/30/24 20:34 113 H 04/30/24 20:15 36.4 C L 109 H 25 H 165/142 H 91 CPAP Laboratory Results Reviewed Diagnostic Findings Reviewed Medications Administered See [facility] Procedure Codes (Charges) Ventilator Management Ventilator Managment: [id number] Ventilation assist and management; Hospital inpt/obs, intl day Coding Level of Care Code 05894 CRITICAL CARE 1ST 30-74M Diagnoses CHF exacerbation I50.9 Acute and chronic respiratory failure with hypoxia J96.21 Metabolic encephalopathy G93.41 Lactic acid acidosis E87.20 CPT Codes Ventilator Management - Ventilator Managment: [id number] Ventilation assist and management; Hospital inpt/obs, intl day ([id number]) Time Spent (min) 48
--- NOTE | 2024-04-30 23:06 | XRay Report ---
Exam(s): XR KUB EXAM: XR Abdomen, 1 View CLINICAL HISTORY: Reason for exam: OGT plcement. TECHNIQUE: Frontal supine view of the abdomen/pelvis. COMPARISON: No relevant prior studies available. FINDINGS: Gastrointestinal tract: Nonobstructive bowel gas pattern. Enteric tube with tip and side-port in the stomach. Bones/joints: Lumbar spondylosis. IMPRESSION: Enteric tube with tip and side port in the stomach. Electronically signed by: Martin Escalera M.D. 04/30/24 23:04 PM
--- NOTE | 2024-04-30 23:18 | CT Scan Report ---
Exam(s): CT ABDOMEN + PELVIS With Contrast IV Amt: 119ml optiray 320 EXAM: CT Abdomen and Pelvis With Intravenous Contrast CLINICAL HISTORY: Reason for exam: resp failure. TECHNIQUE: Axial computed tomography images of the abdomen and pelvis with intravenous contrast. CTDI is 76.84 mGy and DLP is 2666.03 mGy-cm. Automated exposure control was utilized for the study. A dose lowering technique was utilized adhering to the principles of ALARA. CONTRAST: Patient received 119ml optiray 320 of IV contrast COMPARISON: No relevant prior studies available. FINDINGS: Lung bases: Moderate pleural effusions, compressive atelectasis in the right greater than left lungs, and pulmonary edema within the aerated lungs. Heart: Coronary artery atherosclerosis. ABDOMEN: Liver: Unremarkable. No mass. Gallbladder and bile ducts: Cholelithiasis and gallbladder sludge. No evidence of cholecystitis. No biliary dilatation. Pancreas: Unremarkable. No mass. No ductal dilation. Spleen: Unremarkable. No splenomegaly. Adrenals: Indeterminate right adrenal mass measuring 3.8 cm. Kidneys and ureters: Simple bilateral renal cysts, largest in the left kidney measuring 71 mm; no follow-up indicated. Symmetric renal enhancement. No hydronephrosis. Stomach and bowel: No bowel obstruction. Distal colonic diverticulosis without diverticulitis. PELVIS: Appendix: Appendix not identified. No secondary signs of appendicitis. Bladder: Urinary bladder decompressed around a Esteves catheter. Reproductive: Prostate is normal in size. ABDOMEN and PELVIS: Intraperitoneal space: Mild ascites. Bones/joints: No acute fracture or dislocation. Soft tissues: Mild anasarca. Vasculature: Aortoiliac atherosclerosis. No aortic aneurysm. Moderate stenosis proximal segment of the SMA. Lymph nodes: Unremarkable. No enlarged lymph nodes. Tubes, lines and devices: Enteric tube extends to the upper-most stomach. IMPRESSION: 1. Moderate pleural effusions, compressive atelectasis in the right greater than left lungs, and pulmonary edema within the aerated lungs. 2. Mild ascites. 3. Indeterminate right adrenal mass measuring 3.8 cm. Consider a low dose, non-contrast adrenal CT or chemical-shift adrenal MRI follow-up study. 4. Enteric tube extends to the upper-most stomach. Consider advancing further into the stomach, approximately 7 cm. 5. Stenosis in the proximal SMA appearing moderate. Electronically signed by: Martin Escalera M.D. 04/30/24 23:17 PM
[2024-04-30] MEDS ORDERED: STAT IV Infusion **Titration per Protocol STA ×2 (23:24→23:45)
--- NOTE | 2024-04-30 23:25 | CT Scan Report ---
Exam(s): CT HEAD Without Contrast EXAM: CT Head Without Intravenous Contrast CLINICAL HISTORY: Reason for exam: resp failure. TECHNIQUE: Axial computed tomography images of the head/brain without intravenous contrast. CTDI is 117.98 mGy and DLP is 1898.2 mGy-cm. Automated exposure control was utilized for the study. A dose lowering technique was utilized adhering to the principles of ALARA. COMPARISON: No relevant prior studies available. FINDINGS: Brain: Age-related parenchymal volume loss. Mild chronic small vessel ischemic change. Rothman-white matter differentiation maintained. No hemorrhage, mass effect, parenchymal edema, or midline shift. Ventricles: No hydrocephalus. Bones/joints: No acute fracture. Soft tissues: Unremarkable. Vasculature: Intracranial atherosclerosis. Sinuses: Mild mucosal thickening in the ethmoids. Mastoid air cells: No significant mastoid effusion. Orbits: Lens replacements. IMPRESSION: No acute intracranial process. Electronically signed by: Martin Escalera M.D. 04/30/24 23:24 PM
[2024-04-30] MEDS ORDERED: GLUCAGON FOR INJ 1 MG VIAL SQ PRN (23:27)
[2024-04-30] MEDS ORDERED: GLUCOSE 10 TAB/TUBE PO PRN (23:27)
[2024-04-30] MEDS ORDERED: GLUCOSE 40% GEL 15 GM TUBE PO PRN (23:27)
[2024-04-30] MEDS ORDERED: DEXTROSE 50% 50 ML SYRINGE IV PRN (23:27)
[2024-04-30] MEDS: propofoL 1,000 MG/100 ML VIAL IV SCH (23:30)
[2024-04-30 23:33] LABS: iSTAT Art Bld Gas pCO2 Correct 42 mmHg (35-46); iSTAT Art Bld Gas pH Corrected 7.527 (7.35-7.45); iSTAT Arterial Blood Gas HCO3 35 meg/L (19-24); iSTAT Arterial Blood Gas pCO2 44 mmHg (35-46); iSTAT Arterial Blood Gas pH 7.51 (7.35-7.45); iSTAT Arterial Blood Gas pO2 45 mmHg (80-95); iSTAT Arterial Blood Gas pO2 C 42; iSTAT Carbon Dioxide 36 mmol/L (24-31); iSTAT FiO2 40 %; iSTAT Hematocrit 40 % (42-52); iSTAT Hemoglobin 13.6 g/dl (14.0-18.0); iSTAT Potassium 3.9 mmol/L (3.3-5.0); iSTAT Sample Type Arterial; iSTAT Site R Brachial; iSTAT Sodium 140 mmol/L (135-144); iSTAT SpO2 90
--- NOTE | 2024-04-30 23:39 | CT Scan Report ---
Exam(s): CTA CHEST IV Amt: 119ml optiray 320 EXAM: CT Angiography Chest With Intravenous Contrast CLINICAL HISTORY: Reason for exam: PE. TECHNIQUE: Axial computed tomographic angiography images of the chest with intravenous contrast. CTDI is 76.84 mGy and DLP is 1666.02 mGy-cm. Automated exposure control was utilized for the study. A dose lowering technique was utilized adhering to the principles of ALARA. MIP reconstructed images were created and reviewed. COMPARISON: No relevant prior studies available. FINDINGS: Pulmonary arteries: Adequate pulmonary artery opacification. Enlarged main pulmonary artery suggesting palmar arterial hypertension. No evidence of acute pulmonary embolism. Aorta: No acute findings. No aortic aneurysm or dissection. Lungs: Compressive atelectasis within the bilateral lung gaytan with complete right lower lobe collapse. Aerated lung gaytan demonstrate ground-glass density and septal thickening suggesting pulmonary edema. No mass. Pleural space: Moderate right and small left pleural effusion. No pneumothorax. Heart: Coronary artery atherosclerosis. Borderline heart size. No pericardial effusion. Bones/joints: No acute fracture. No dislocation. Soft tissues: Gynecomasty. Lymph nodes: Unremarkable. No enlarged lymph nodes. Upper abdomen: Reported separately. Tubes, lines and devices: Endotracheal tube terminates above the joaquín. Enteric tube with tip just beyond the gastroesophageal junction. IMPRESSION: 1. No evidence of acute pulmonary embolism. 2. Aerated lung gaytan demonstrate ground-glass density and septal thickening suggesting pulmonary edema. 3. Moderate right and small left pleural effusion. 4. Compressive atelectasis within the bilateral lung gaytan with complete right lower lobe collapse. 5. Enteric tube with tip just beyond the gastroesophageal junction. Consider advancing further into the stomach. Electronically signed by: Martin Escalera M.D. 04/30/24 23:38 PM
[2024-04-30] MEDS ORDERED: AZITHROMYCIN 500 MG VIAL IV SCH (23:45)
--- NOTE | 2024-04-30 23:46 | CT Scan Report ---
Exam(s): CT C SPINE EXAM: CT Cervical Spine Without Intravenous Contrast CLINICAL HISTORY: Reason for exam: resp failure. TECHNIQUE: Axial computed tomography images of the cervical spine without intravenous contrast. CTDI is 26.96 mGy and DLP is 583.4 mGy-cm. Automated exposure control was utilized for the study. A dose lowering technique was utilized adhering to the principles of ALARA. COMPARISON: No relevant prior studies available. FINDINGS: Vertebrae: Osteopenia. No acute fracture or subluxation. Discs/spinal canal/neural foramina: Multilevel disc, facet, and uncovertebral joint degeneration. Partially calcified disc bulge producing moderate to severe central canal stenosis at the C5-C6 level. Varying degrees of multilevel foraminal narrowing, severe on the left at C3-C4 and C5-C6. Soft tissues: Unremarkable. Pleural space: Layering bilateral pleural effusions. Tubes, lines and devices: Endotracheal tube and enteric tube are in place. IMPRESSION: 1. No acute osseous findings in the cervical spine. 2. Partially calcified disc bulge producing moderate to severe central canal stenosis at the C5-C6 level. 3. Varying degrees of multilevel foraminal narrowing, severe on the left at C3-C4 and C5-C6. 4. Layering bilateral pleural effusions. Electronically signed by: Martin Escalera M.D. 04/30/24 23:45 PM
[2024-04-30] MEDS: NOREPINEPHRINE/D5W 4 MG/250 ML PLCT IV SCH (23:51)
[2024-04-30] MEDS: RAPID SEQUENCE INDUCTION BAG ONE (23:59)
[2024-05-01] MEDS: STAT IV Infusion **Titration per Protocol STA
[2024-05-01] MEDS: Heparin IV Adult Wt-Based Low-Dose *NO* INITIAL Bolus Protocol IV STA
[2024-05-01] MEDS: PROPOFOL IV EMULSION 10 MG/ML 100 ML VIAL IV ONE
[2024-05-01] MEDS: HEPARIN 25000 UNIT/500 ML D5W 25,000 UNITS/500 ML BAG IV SCH
[2024-05-01] MEDS: INSULIN ASPART PER UNIT CHARGE SC SCH (00:17)
[2024-05-01] MEDS: AZITHROMYCIN 500 MG in SODIUM CHLORIDE 0.9% 250 ML IV SCH (00:32)
[2024-05-01] MEDS: ENOXAPARIN INJ 40 MG/0.4 ML SYR SQ SCH (00:35)
[2024-05-01] MEDS: FUROSEMIDE 40 MG/4 ML VIAL IV ONE (01:01)
[2024-05-01 01:05] LABS: Adenovirus PCR Not Detected (NotDetected); Bordetella parapertussis PCR Not Detected (NotDetected); Bordetella pertussis PCR Not Detected (NotDetected); Chlamydia pneumoniae PCR Not Detected (NotDetected); Coronavirus 229E PCR Not Detected (NotDetected); Coronavirus CoV-2 (COVID19)PCR Not Detected (NotDetected); Coronavirus HKU1 PCR Not Detected (NotDetected); Coronavirus NL63 PCR Not Detected (NotDetected); Coronavirus OC43PCR DETECTED (NotDetected); Human Metapneumovirus PCR Not Detected (NotDetected); Influenza A PCR Not Detected (NotDetected); Influenza B PCR Not Detected (NotDetected); Mycoplasma pneumoniae PCR Not Detected (NotDetected); Parainfluenza Virus 1 PCR Not Detected (NotDetected); Parainfluenza Virus 2 PCR Not Detected (NotDetected); Parainfluenza Virus 3 PCR Not Detected (NotDetected); Parainfluenza Virus 4 PCR Not Detected (NotDetected); Respiratory Syncytial VirusPCR Not Detected (NotDetected); Rhinovirus/Enterovirus PCR Not Detected (NotDetected)
[2024-05-01 06:08] LABS: iSTAT Allen Test Pass; iSTAT Art Bld Gas pCO2 Correct 46 mmHg (35-46); iSTAT Art Bld Gas pH Corrected 7.538 (7.35-7.45); iSTAT Arterial Blood Gas HCO3 39 meg/L (19-24); iSTAT Arterial Blood Gas pCO2 46 mmHg (35-46); iSTAT Arterial Blood Gas pH 7.54 (7.35-7.45); iSTAT Arterial Blood Gas pO2 73 mmHg (80-95); iSTAT Arterial Blood Gas pO2 C 73; iSTAT Carbon Dioxide 40 mmol/L (24-31); iSTAT FiO2 40 %; iSTAT Hematocrit 38 % (42-52); iSTAT Hemoglobin 12.9 g/dl (14.0-18.0); iSTAT Sample Type Arterial; iSTAT Site R Brachial; iSTAT Sodium 140 mmol/L (135-144); iSTAT SpO2 99
[2024-05-01 06:14] LABS: Basophils # (auto) 0.06 K/uL (0.00-0.20); Basophils % (auto) 0.5 %; Eosinophils # (auto) 0.06 K/uL (0.00-0.50); Eosinophils % (auto) 0.5 %; Hematocrit (blood only) 38.5 % (42.0-52.0); Hemoglobin 11.6 g/dl (14.0-18.0); Immature Granulocytes # (auto) 0.15 K/uL (0.01-0.20); Immature Granulocytes % (auto) 1.4 %; Lymphocytes # (auto) 1.11 K/uL (1.20-3.40); Mean Corpuscular Hemoglobin 29.4 pg (25.0-34.0); Mean Corpuscular Hgb Conc 30.1 g/dL (32.0-36.0); Mean Corpuscular Volume 97.7 fL (80.0-100.0); Mean Platelet Volume 11.5 fL (9.4-12.4); Monocytes # (auto) 1.05 K/uL (0.11-0.59); Monocytes % (auto) 9.5 %; Neutrophils # (auto) 8.67 K/uL (1.40-6.50); Neutrophils % (auto) 78.1 %; Platelet Count 213 K/uL (130-400); RDW Coefficient of Variation 17.9 % (11.5-14.5); RDW Standard Deviation 64.4 fL (36.4-46.3); Red Blood Count 3.94 M/uL (4.70-6.10)
[2024-05-01 06:33] LABS: ANTI-Xa, UFH(UnfractionatedHep 0.11 IU/ml (0.3-0.7)
[2024-05-01 06:36] LABS: BUN Creatinine Ratio 22.7 (10-20); Calcium 9.2 mg/dl (8.6-10.3); Creatinine Clr Calc Pharmacy 74.2 ml/min; Magnesium 2.5 mg/dl (1.7-2.4); Phosphorus 3.2 mg/dl (2.5-4.9); Potassium 4.3 mmol/L (3.5-5.1)
[2024-05-01] MEDS: ICU ELECTROLYTE REPLACEMENT PROTOCOL SCH (06:41)
--- NOTE | 2024-05-01 06:50 | Hospitalist Progress Note ---
Date of Service May 01, 2024 Assessment & Plan (1) Metabolic encephalopathy: (2) Acute and chronic respiratory failure with hypoxia: (3) CHF exacerbation: (4) Respiratory failure: (5) Pleural effusion: (6) Hypoxia: Plan Pt is a 78 yo male with a PMHx of CAD, HFpEF, Afib on warfarin, T2DM w/peripheral neuropathy, OHS, chronic venous stasis, chronic hypoxic respiratory failure on chronic home O2 (2-2.5L) admitted after being found down at home for an undetermined amount of time. #Acute hypoxic resp failure - in the setting of OHS/RONNELL and + noncovid 19 coronavirus - also with a hx of HFpEF - CT Chest: no PE, +ground glass opacities/septal thickening, R>L pleural effusion with associated compressive atelectasis - normal baseline O2 use 2-2.5 L, unclear CPAP/bipap use at this time - Follow BCx and UCx; on CTX and azithromycin #Hypotension - in the setting of acute illness - on small amount levophed this morning #Altered mental status - on admission, most likely secondary to CO2 retention/metabolic encephalopathy - CT imaging negative for acute pathology - MRI ordered #DMT2 - Hx of t2DM on metformin and Jariance - held - ISS - goal BG 140-180 VTE ppx: Heparin Diet: NPO given vent status Admission and Anticipated Discharge Date Admission Date: April 30, 2024 Supervising Physician Co-Signing Physician Notes I personally examined the patient and verified all rodarte points of history and exam, discussed case, and agree with decision making with Dr Conde intubated sedated no HPI or ROS obtainable vitals noted intubated sedated ETT in place breathing unlabored no accessory muscles on vent. labs and diagnostics noted shock - probably cardiogenic possibly related to acute on chronic HFpEF and acute on chronic hypoxic respiratory failure due to same - can't rule out sepsis/septic shock due to viral vs bacterial pneumonia - continue current care, appreciate ICU management. otherwise as above Subjective Pt seen this morning at bedside, intubated, sedated, and on vent. Does not respond to commands this morning. Review of Systems Review of Systems: Per HPI. Physical Exam Physical Exam: General:Intubated and on ventilator Cardio: Regular rate and rhythm, Resp:On ventilator AC setting, no wheezes heard in the upper lung gaytan GI: Soft and nontender, nondistended, bowel sounds hypoactive Skin: Warm, pink, dry, Results & Data Results & Data Vital Signs (Past 12 Hours) Vital Signs Temp Pulse Pulse Resp BP BP BP 05/01/24 06:00 37.2 C 67 15 104/62 05/01/24 05:48 37.1 C 67 14 05/01/24 05:45 108/66 05/01/24 05:38 98/64 L 05/01/24 05:33 37.1 C 71 15 05/01/24 05:28 65 15 05/01/24 05:27 37.1 C 74 15 05/01/24 05:15 112/70 05/01/24 05:12 37.1 C 72 15 05/01/24 05:00 37 C 75 14 108/63 05/01/24 04:36 37.0 C 65 16 05/01/24 04:30 115/65 05/01/24 04:21 36.9 C 68 17 05/01/24 04:15 36.9 C 72 16 05/01/24 04:15 97/67 L 05/01/24 04:15 97/67 L 05/01/24 04:00 36.9 C 74 17 05/01/24 04:00 103/60 05/01/24 04:00 103/60 05/01/24 04:00 05/01/24 03:45 105/61 05/01/24 03:45 105/61 05/01/24 03:42 36.8 C 67 17 05/01/24 03:30 36.8 C 62 16 05/01/24 03:15 103/65 05/01/24 03:15 103/65 05/01/24 03:15 103/65 05/01/24 03:15 36.7 C 58 L 17 05/01/24 03:06 36.7 C 61 17 05/01/24 03:00 100/70 05/01/24 03:00 100/70 05/01/24 03:00 100/70 05/01/24 02:54 36.6 C 64 17 05/01/24 02:45 107/61 05/01/24 02:45 36.5 C 61 16 05/01/24 02:36 36.5 C 62 16 05/01/24 02:28 59 L 17 05/01/24 02:27 36.4 C L 71 18 05/01/24 02:15 111/70 05/01/24 02:15 111/70 05/01/24 02:15 111/70 05/01/24 02:03 36.3 C L 67 17 05/01/24 02:00 106/65 05/01/24 02:00 16 106/65 05/01/24 01:57 36.3 C L 62 16 05/01/24 01:51 36.2 C L 68 17 05/01/24 01:30 36.2 C L 65 16 05/01/24 01:30 112/72 05/01/24 01:30 112/72 05/01/24 01:15 108/75 05/01/24 01:15 36.1 C L 67 17 05/01/24 01:00 11105/01/24 01:00 11105/01/24 01:00 11105/01/24 01:00 11105/01/24 01:00 11105/01/24 01:00 36.1 C L 63 18 05/01/24 00:54 36.1 C L 70 16 05/01/24 00:45 118/80 05/01/24 00:45 118/80 05/01/24 00:30 122/82 05/01/24 00:06 36.0 C L 73 16 05/01/24 00:05 36 C L 82 17 103/75 05/01/24 00:00 05/01/24 00:00 05/01/24 00:00 103/75 05/01/24 00:00 103/75 05/01/24 00:00 103/75 05/01/24 00:00 103/75 05/01/24 00:00 81 05/01/24 00:00 36.1 C L 70 16 103/75 05/01/24 00:00 103/05/01/24 00:00 103/75 05/01/24 00:00 103/75 05/01/24 00:00 103/75 05/01/24 00:00 36.0 C L 76 16 04/30/24 23:49 82 17 04/30/24 23:46 83/50 L 04/30/24 23:31 93/55 L 04/30/24 23:30 36.0 C L 85 16 04/30/24 23:17 89/58 L 04/30/24 23:17 89/58 L 04/30/24 23:15 35.8 C L 85 18 04/30/24 23:12 35.8 C L 91 H 18 04/30/24 23:04 135/88 04/30/24 22:57 96 H 19 04/30/24 22:54 95 H 18 04/30/24 22:10 129/100 04/30/24 22:05 98 H 20 131/100 04/30/24 22:00 103 H 20 136/102 H 04/30/24 21:56 109 H 20 108/75 04/30/24 21:45 104 H 20 133/104 H 04/30/24 21:40 116 H 20 135/99 04/30/24 21:35 110 H 20 136/107 H 04/30/24 21:30 110 H 20 126/90 04/30/24 21:25 119 H 20 126/86 04/30/24 21:20 109 H 20 129/100 04/30/24 21:15 112 H 20 121/88 04/30/24 21:15 106 H 16 121/88 04/30/24 21:10 118 H 20 129/95 04/30/24 21:05 109 H 20 112/80 04/30/24 21:00 105 H 20 107/62 04/30/24 20:57 98 H 20 04/30/24 20:55 101 H 20 78/51 L 04/30/24 20:50 20 04/30/24 20:50 95 H 20 66/46 L 04/30/24 20:34 113 H 04/30/24 20:15 36.4 C L 109 H 25 H 165/142 H Pulse Ox O2 Del Method FiO2 05/01/24 06:00 99 Mechanical Vent 40 05/01/24 05:48 99 05/01/24 05:45 05/01/24 05:38 05/01/24 05:33 99 Mechanical Vent 40 05/01/24 05:28 99 40 05/01/24 05:27 99 05/01/24 05:15 05/01/24 05:12 98 05/01/24 05:00 99 Mechanical Vent 40 05/01/24 04:36 98 05/01/24 04:30 05/01/24 04:21 99 05/01/24 04:15 99 05/01/24 04:15 05/01/24 04:15 05/01/24 04:00 99 05/01/24 04:00 05/01/24 04:00 97 Mechanical Vent 40 05/01/24 04:00 40 05/01/24 03:45 05/01/24 03:45 05/01/24 03:42 97 05/01/24 03:30 99 05/01/24 03:15 05/01/24 03:15 05/01/24 03:15 05/01/24 03:15 98 05/01/24 03:06 99 05/01/24 03:00 99 Mechanical Vent 40 05/01/24 03:00 05/01/24 03:00 05/01/24 02:54 99 05/01/24 02:45 05/01/24 02:45 98 Mechanical Vent 40 05/01/24 02:36 99 05/01/24 02:28 100 40 05/01/24 02:27 100 05/01/24 02:15 05/01/24 02:15 05/01/24 02:15 05/01/24 02:03 100 05/01/24 02:00 05/01/24 02:00 100 60 05/01/24 01:57 100 05/01/24 01:51 100 05/01/24 01:30 100 05/01/24 01:30 05/01/24 01:30 05/01/24 01:15 05/01/24 01:15 100 Mechanical Vent 60 05/01/24 01:00 05/01/24 01:00 05/01/24 01:00 05/01/24 01:00 05/01/24 01:00 05/01/24 01:00 100 05/01/24 00:54 100 05/01/24 00:45 05/01/24 00:45 05/01/24 00:30 05/01/24 00:06 100 05/01/24 00:05 93 Mechanical Vent 60 05/01/24 00:00 Mechanical Vent 60 05/01/24 00:00 60 05/01/24 00:00 05/01/24 00:00 05/01/24 00:00 05/01/24 00:00 05/01/24 00:00 05/01/24 00:00 100 Mechanical Vent 60 05/01/24 00:00 05/01/24 00:00 05/01/24 00:00 05/01/24 00:00 05/01/24 00:00 99 04/30/24 23:49 93 60 04/30/24 23:46 04/30/24 23:31 04/30/24 23:30 98 04/30/24 23:17 04/30/24 23:17 04/30/24 23:15 91 04/30/24 23:12 88 L 04/30/24 23:04 04/30/24 22:57 04/30/24 22:54 04/30/24 22:10 04/30/24 22:05 93 Mechanical Vent 40 04/30/24 22:00 94 Mechanical Vent 40 04/30/24 21:56 98 Mechanical Vent 40 04/30/24 21:45 95 Mechanical Vent 40 04/30/24 21:40 95 Mechanical Vent 40 04/30/24 21:35 94 Mechanical Vent 40 04/30/24 21:30 94 Mechanical Vent 40 04/30/24 21:25 94 Mechanical Vent 40 04/30/24 21:20 99 Mechanical Vent 40 04/30/24 21:15 99 Mechanical Vent 70 04/30/24 21:15 98 Mechanical Vent 70 04/30/24 21:10 99 Mechanical Vent 70 04/30/24 21:05 99 Mechanical Vent 70 04/30/24 21:00 100 Mechanical Vent 70 04/30/24 20:57 100 Mechanical Vent 04/30/24 20:55 100 Mechanical Vent 100 04/30/24 20:50 98 100 04/30/24 20:50 100 Mechanical Vent 100 04/30/24 20:34 04/30/24 20:15 91 CPAP Resident Activity Tracking Resident Involvement: Resident Care Provided Care Provided: Adult Hospital Medicine
[2024-05-01] MEDS: HEPARIN SOD (PORCINE) 1000 UNIT/ML IV ONE (07:18)
[2024-05-01] MEDS ORDERED: ICU Protocol for HYPERglycemia SCH (07:30)
--- NOTE | 2024-05-01 08:06 | Critical Care Progress Note ---
Date of Service May 01, 2024 Assessment & Plan (1) CHF exacerbation: (2) Acute and chronic respiratory failure with hypoxia: (3) Metabolic encephalopathy: (4) Lactic acid acidosis: Plan Reason Critically Ill: Acute on chronic hypoxemic respiratory failure Acute exacerbation of heart failure Medication noncompliance Subtherapeutic INR Acute metabolic encephalopathy, rule out CVA Bilateral pleural effusion Lactic acidosis likely 2/2 hypoxemia Neuro - [facility] ICU: Unable to assess CT head negative for bleed or acute ischemic changes. No CTA pursued MRI of the brain 05/01/2024, negative for any acute changes, no acute infarct Continue propofol infusion. Fentanyl PRN Cardiac - -- Hypotension Multifactorial Sedation as well as sepsis cannot be ruled out chest Continue with vasopressor support to keep MAP greater than 65 -- Acute HFpEF 2D echo 05/01/2024: EF 60-65%, mild TR, RV not well-visualized BNP 506 with unknown baseline Troponin 36.6, admit EKG non-ischemic Respiratory - -- VDRF Secondary to altered mental status for airway protection Continue with ventilatory support Keep RASS -1 Daily sedation holidays and SBT's Chlorhexidine mouthwash -- Bilateral pleural effusions Likely from HFpEF Continue with diuresis GI - -- No acute issues RENAL/LYTES - -- Monitor BUNs/creatinine Avoid nephrotoxic medication ENDO - No acute concerns BG 140-180 per [facility] guidelines ISS if needed while inpatient HEME - Subtherapeutic INR ID - -- Multiple source of infection Urine with positive leukocyte esterase as well as bacteria Procalcitonin 0.19 Continue with antibiotics --Prophylaxis VTE: Heparin drip GI: None Lines: Peripheral Diet: Will start tube feeds Plan: In/out: +1.2 L, urine output 495 AB.54/46/73 on 40%, RR 16 Start the patient on Bumex 1 mg twice daily, goal would be to have -1 L at least on a daily basis Stat EEG to look at seizure-like activity. I personally think this is most likely fasciculation/takes I have personally spent 48 minutes of critical care time in the direct management of this patient. This is a life/limb threatening event. This includes time spent evaluating patient, direct bedside care, chart review, placing orders, interpretation of diagnostic studies, discussion with consultants, patient, and family members, as well as other required patient management activities. This time is exclusive of all separately billable procedures, and teaching time and separate from and in addition to any other critical care service time. Thank you for allowing us to participate in the care of this patient. Please refer to my attending physician's documentation for any further recommendations. Admission and Anticipated Discharge Date Admission Date: April 30, 2024 Subjective Patient seen and examined at bedside. No acute distress Early in the morning patient was having some flickering like episodes of the left shoulder as well as left lower extremity. He is on propofol 20 as well as Levophed 0.03 at the time of examination He was breathing over the vent Has been afebrile Review of Systems 2 Review of Systems: All systems reviewed & are unremarkable except as noted in Subjective and Unobtainable due to endotracheal tube Physical Exam 2 Physical Exam: Constitutional: No acute distress HEENT: PERRLA Respiratory system: Decreased air entry bilaterally, minimal expiratory wheeze bilaterally, no rhonchi, positive crackles bilateral lower lobes CVS: S1-S2 positive, no murmurs or gallops Abdomen: Soft, nontender, nondistended, positive bowel sounds x4 Extremities: +2 pulses bilaterally radialis/ dorsalis pedis, no cyanosis, +1 pitting edema bilateral lower extremity Neuro: RASS -2, breathing over the vent Psych: Unable to assess G/U: Positive Esteves Skin: no rashes, warm and dry Lymphatic: no cervical or axillary lymphadenopathy Results & Data Results & Data Vital Signs (Past 12 Hours) Vital Signs Temp Pulse Pulse Resp BP BP BP 05/01/24 07:30 37.3 C 65 14 109/71 05/01/24 07:30 05/01/24 07:15 37.3 C 65 14 103/64 05/01/24 07:00 37.3 C 64 14 102/53 L 05/01/24 06:45 104/57 L 05/01/24 06:36 37.2 C 71 14 05/01/24 06:30 93/57 L 05/01/24 06:15 37.2 C 73 14 05/01/24 06:00 104/62 05/01/24 06:00 104/62 05/01/24 06:00 104/62 05/01/24 06:00 37.2 C 68 15 05/01/24 06:00 37.2 C 67 15 104/62 05/01/24 05:48 37.1 C 67 14 05/01/24 05:45 108/66 05/01/24 05:38 98/64 L 05/01/24 05:33 37.1 C 71 15 05/01/24 05:28 65 15 05/01/24 05:27 37.1 C 74 15 05/01/24 05:15 112/70 05/01/24 05:12 37.1 C 72 15 05/01/24 05:00 37 C 75 14 108/63 05/01/24 04:36 37.0 C 65 16 05/01/24 04:30 115/65 05/01/24 04:21 36.9 C 68 17 05/01/24 04:15 36.9 C 72 16 05/01/24 04:15 97/67 L 05/01/24 04:15 97/67 L 05/01/24 04:00 36.9 C 74 17 05/01/24 04:00 103/60 05/01/24 04:00 103/60 05/01/24 04:00 05/01/24 03:45 105/61 05/01/24 03:45 105/61 05/01/24 03:42 36.8 C 67 17 05/01/24 03:30 36.8 C 62 16 05/01/24 03:15 103/65 05/01/24 03:15 103/65 05/01/24 03:15 103/65 05/01/24 03:15 36.7 C 58 L 17 05/01/24 03:06 36.7 C 61 17 05/01/24 03:00 100/70 05/01/24 03:00 100/70 05/01/24 03:00 100/70 05/01/24 02:54 36.6 C 64 17 05/01/24 02:45 107/61 05/01/24 02:45 36.5 C 61 16 05/01/24 02:36 36.5 C 62 16 05/01/24 02:28 59 L 17 05/01/24 02:27 36.4 C L 71 18 05/01/24 02:15 111/70 05/01/24 02:15 111/70 05/01/24 02:15 111/70 05/01/24 02:03 36.3 C L 67 17 05/01/24 02:00 106/65 05/01/24 02:00 16 106/65 05/01/24 01:57 36.3 C L 62 16 05/01/24 01:51 36.2 C L 68 17 05/01/24 01:30 36.2 C L 65 16 05/01/24 01:30 112/72 05/01/24 01:30 112/72 05/01/24 01:15 108/75 05/01/24 01:15 36.1 C L 67 17 05/01/24 01:00 111/05/01/24 01:00 111/05/01/24 01:00 111/75 05/01/24 01:00 11175 05/01/24 01:00 111/05/01/24 01:00 36.1 C L 63 18 05/01/24 00:54 36.1 C L 70 16 05/01/24 00:45 118/80 05/01/24 00:45 118/80 05/01/24 00:30 122/82 05/01/24 00:06 36.0 C L 73 16 05/01/24 00:05 36 C L 82 17 103/75 05/01/24 00:00 05/01/24 00:00 05/01/24 00:00 103/75 05/01/24 00:00 103/75 05/01/24 00:00 103/75 05/01/24 00:00 103/75 05/01/24 00:00 81 05/01/24 00:00 36.1 C L 70 16 103/75 05/01/24 00:00 103/75 05/01/24 00:00 103/75 05/01/24 00:00 103/75 05/01/24 00:00 103/75 05/01/24 00:00 36.0 C L 76 16 04/30/24 23:49 82 17 04/30/24 23:46 83/50 L 04/30/24 23:31 93/55 L 04/30/24 23:30 36.0 C L 85 16 04/30/24 23:17 89/58 L 04/30/24 23:17 89/58 L 04/30/24 23:15 35.8 C L 85 18 04/30/24 23:12 35.8 C L 91 H 18 04/30/24 23:04 135/88 04/30/24 22:57 96 H 19 04/30/24 22:54 95 H 18 04/30/24 22:10 129/100 04/30/24 22:05 98 H 20 131/100 04/30/24 22:00 103 H 20 136/102 H 04/30/24 21:56 109 H 20 108/75 04/30/24 21:45 104 H 20 133/104 H 04/30/24 21:40 116 H 20 135/99 04/30/24 21:35 110 H 20 136/107 H 04/30/24 21:30 110 H 20 126/90 04/30/24 21:25 119 H 20 126/86 04/30/24 21:20 109 H 20 129/100 04/30/24 21:15 112 H 20 121/88 04/30/24 21:15 106 H 16 121/88 04/30/24 21:10 118 H 20 129/95 04/30/24 21:05 109 H 20 112/80 04/30/24 21:00 105 H 20 107/62 04/30/24 20:57 98 H 20 04/30/24 20:55 101 H 20 78/51 L 04/30/24 20:50 20 04/30/24 20:50 95 H 20 66/46 L 04/30/24 20:34 113 H 04/30/24 20:15 36.4 C L 109 H 25 H 165/142 H Pulse Ox O2 Del Method FiO2 05/01/24 07:30 100 Mechanical Vent 40 05/01/24 07:30 40 05/01/24 07:15 99 Mechanical Vent 40 05/01/24 07:00 99 Mechanical Vent 40 05/01/24 06:45 05/01/24 06:36 98 05/01/24 06:30 05/01/24 06:15 99 05/01/24 06:00 05/01/24 06:00 05/01/24 06:00 05/01/24 06:00 100 05/01/24 06:00 99 Mechanical Vent 40 05/01/24 05:48 99 05/01/24 05:45 05/01/24 05:38 05/01/24 05:33 99 Mechanical Vent 40 05/01/24 05:28 99 40 05/01/24 05:27 99 05/01/24 05:15 05/01/24 05:12 98 05/01/24 05:00 99 Mechanical Vent 40 05/01/24 04:36 98 05/01/24 04:30 05/01/24 04:21 99 05/01/24 04:15 99 05/01/24 04:15 05/01/24 04:15 05/01/24 04:00 99 05/01/24 04:00 05/01/24 04:00 97 Mechanical Vent 40 05/01/24 04:00 40 05/01/24 03:45 05/01/24 03:45 05/01/24 03:42 97 05/01/24 03:30 99 05/01/24 03:15 05/01/24 03:15 05/01/24 03:15 05/01/24 03:15 98 05/01/24 03:06 99 05/01/24 03:00 99 Mechanical Vent 40 05/01/24 03:00 05/01/24 03:00 05/01/24 02:54 99 05/01/24 02:45 05/01/24 02:45 98 Mechanical Vent 40 05/01/24 02:36 99 05/01/24 02:28 100 40 05/01/24 02:27 100 05/01/24 02:15 05/01/24 02:15 05/01/24 02:15 05/01/24 02:03 100 05/01/24 02:00 05/01/24 02:00 100 60 05/01/24 01:57 100 05/01/24 01:51 100 05/01/24 01:30 100 05/01/24 01:30 05/01/24 01:30 05/01/24 01:15 05/01/24 01:15 100 Mechanical Vent 60 05/01/24 01:00 05/01/24 01:00 05/01/24 01:00 05/01/24 01:00 05/01/24 01:00 05/01/24 01:00 100 05/01/24 00:54 100 05/01/24 00:45 05/01/24 00:45 05/01/24 00:30 05/01/24 00:06 100 05/01/24 00:05 93 Mechanical Vent 60 05/01/24 00:00 Mechanical Vent 60 05/01/24 00:00 60 05/01/24 00:00 05/01/24 00:00 05/01/24 00:00 05/01/24 00:00 05/01/24 00:00 05/01/24 00:00 100 Mechanical Vent 60 05/01/24 00:00 05/01/24 00:00 05/01/24 00:00 05/01/24 00:00 05/01/24 00:00 99 04/30/24 23:49 93 60 04/30/24 23:46 04/30/24 23:31 04/30/24 23:30 98 04/30/24 23:17 04/30/24 23:17 04/30/24 23:15 91 04/30/24 23:12 88 L 04/30/24 23:04 04/30/24 22:57 04/30/24 22:54 04/30/24 22:10 04/30/24 22:05 93 Mechanical Vent 40 04/30/24 22:00 94 Mechanical Vent 40 04/30/24 21:56 98 Mechanical Vent 40 04/30/24 21:45 95 Mechanical Vent 40 04/30/24 21:40 95 Mechanical Vent 40 04/30/24 21:35 94 Mechanical Vent 40 04/30/24 21:30 94 Mechanical Vent 40 04/30/24 21:25 94 Mechanical Vent 40 04/30/24 21:20 99 Mechanical Vent 40 04/30/24 21:15 99 Mechanical Vent 70 04/30/24 21:15 98 Mechanical Vent 70 04/30/24 21:10 99 Mechanical Vent 70 04/30/24 21:05 99 Mechanical Vent 70 04/30/24 21:00 100 Mechanical Vent 70 04/30/24 20:57 100 Mechanical Vent 04/30/24 20:55 100 Mechanical Vent 100 04/30/24 20:50 98 100 04/30/24 20:50 100 Mechanical Vent 100 04/30/24 20:34 04/30/24 20:15 91 CPAP Laboratory Results 05/01/24 05:30 05/01/24 05:29 Coding Level of Care Code 74780 CRITICAL CARE 1ST 30-74M Diagnoses CHF exacerbation I50.9 Acute and chronic respiratory failure with hypoxia J96.21 Metabolic encephalopathy G93.41 Lactic acid acidosis E87.20
[2024-05-01 08:51] LABS: Estimated Average Glucose 128 mg/dl; Hemoglobin A1C 6.1 % (4.5-5.6)
[2024-05-01] MEDS: FOLIC ACID 1 MG TAB PO SCH (09:33)
[2024-05-01] MEDS: THIAMINE HCL 100 MG in SYRINGE 9 ML IV SCH (09:34)
--- NOTE | 2024-05-01 10:51 | Electroencephalogram ---
EEG Procedure Note Date of Service May 01, 2024 Start / End Times Start Time: 1003 End Time: [address] Pool History 78-year-old with history of acute encephalopathy with head movements. Inpatient Medication List Folic Acid (Folic Acid 1 Mg Tab) 1 mg PO QAM GERALDINE Stop: 05/31/24 08:59 Last Admin: 05/01/24 09:33 Dose: 1 mg Documented By: CAESARS Norepinephrine Bitartrate (Levophed/D5w) 4 mg in 250 mls @ 14.22 mls/hr IV .[id number] GERALDINE; Protocol Stop: 05/30/24 23:29 Last Titration: 05/01/24 06:56 Dose: 0.03 mcg/kg/min, 14.2 mls/hr Documented By: [id number] Co-signed By: WRS Titration: 05/01/24 05:52 Dose: 0.03 mcg/kg/min, 14.2 mls/hr Documented By: [id number] Co-signed By: TP Titration: 05/01/24 00:15 Dose: 0.04 mcg/kg/min, 19 mls/hr Documented By: [id number] Co-signed By: TP Admin: 04/30/24 23:51 Dose: 0.05 mcg/kg/min, 23.7 mls/hr Documented By: [id number] Co-signed By: TP Heparin Sodium/Dextrose (Heparin 34649 Unit/500 Ml D5w) 25,000 units in 500 mls @ 24 mls/hr IV .[id number] GERALDINE; Protocol Stop: 05/30/24 23:44 Last Titration: 05/01/24 06:56 Dose: 1,200 units/hr, 24 mls/hr Documented By: [id number] Co-signed By: WRS Titration: 05/01/24 06:45 Dose: 1,200 units/hr, 24 mls/hr Documented By: [id number] Co-signed By: TP Admin: 05/01/24 00:00 Dose: 1,000 units/hr, 20 mls/hr Documented By: [id number] Co-signed By: TP Propofol (Diprivan) 1,000 mg in 100 mls @ 15.168 mls/hr IV .Q6H36M GERALDINE; Protocol Stop: 05/03/24 23:44 Last Admin: 05/01/24 09:17 Dose: 20 mcg/kg/min, 15.2 mls/hr Documented By: [email or web address] Co-signed By: AMS Titration: 05/01/24 09:17 Dose: Infused Documented By: DIMITRI Co-signed By: AMS Titration: 05/01/24 06:56 Dose: 20 mcg/kg/min, 15.2 mls/hr Documented By: [id number] Co-signed By: DIMITRI Admin: 05/01/24 05:14 Dose: Not Given Documented By: [id number] Titration: 05/01/24 04:00 Dose: 20 mcg/kg/min, 15.2 mls/hr Documented By: [id number] Admin: 05/01/24 03:13 Dose: 30 mcg/kg/min, 22.8 mls/hr Documented By: [id number] Co-signed By: TP Titration: 05/01/24 03:13 Dose: Infused Documented By: [id number] Co-signed By: TP Titration: 04/30/24 23:45 Dose: 30 mcg/kg/min, 22.8 mls/hr Documented By: [id number] Admin: 04/30/24 23:30 Dose: 20 mcg/kg/min, 15.2 mls/hr Documented By: [id number] Co-signed By: LIZM Azithromycin 500 mg/ Sodium (Chloride) 255 mls @ 127.5 mls/hr IV Q24H [facility] Stop: 05/06/24 00:00 Last Infusion: 05/01/24 02:32 Dose: Infused Documented By: [id number] Admin: 05/01/24 00:32 Dose: 127.5 mls/hr Documented By: [id number] Thiamine HCl 100 mg/ Syringe 10 mls @ 2 mls/min IV QAM GERALDINE Stop: 05/31/24 08:59 Last Admin: 05/01/24 09:34 Dose: 2 mls/min Documented By: WRAndrew Insulin Aspart (Insulin Aspart Per Unit Charge) 0 units SC Q6 GERALDINE Stop: 05/31/24 00:00 Last Admin: 05/01/24 05:43 Dose: Not Given Documented By: [id number] Admin: 05/01/24 00:17 Dose: Not Given Documented By: [id number] Miscellaneous (Icu Electrolyte Replacement Protocol) 1 each N/A BID@06,18 GERALDINE; Protocol Stop: 05/08/24 05:59 Last Admin: 05/01/24 06:41 Dose: 1 each Documented By: [id number] Discontinued Medications Enoxaparin Sodium (Enoxaparin Inj 40 Mg/0.4 Ml Syr) 40 mg SQ Q12H GERALDINE Stop: 05/30/24 23:26 Last Admin: 05/01/24 00:35 Dose: Not Given Documented By: [id number] Furosemide (Furosemide 40 Mg/4 Ml Vial) 40 mg IV ONE ONE Stop: 05/01/24 00:53 Last Admin: 05/01/24 01:01 Dose: 40 mg Documented By: [id number] Heparin Sodium (Porcine) (Heparin Sod (Porcine) 1000 Unit/Ml) 4,000 units IV NOW ONE Stop: 05/01/24 06:46 Last Admin: 05/01/24 07:18 Dose: 4,000 units Documented By: DIMITRI Co-signed By: LEÓN Heparin Sodium/Dextrose (Heparin Iv Adult Wt-Based Low-Dose *No* Initial Bolus Protocol) 1 each IV ONE STA; Protocol Stop: 04/30/24 23:34 Last Admin: 05/01/24 00:00 Dose: 1 each Documented By: [id number] Sodium Chloride (Nss) 1,000 mls @ 999 mls/hr IV .Q1H1M ONE Stop: 04/30/24 21:52 Last Infusion: 04/30/24 21:58 Dose: Infused Documented By: Admin: 04/30/24 21:07 Dose: 999 mls/hr Documented By: FLAVIO Ceftriaxone Sodium (Rocephin) 2,000 mg in 50 mls @ 100 mls/hr IV NOW STA Stop: 04/30/24 21:21 Last Infusion: 04/30/24 21:58 Dose: Infused Documented By: Admin: 04/30/24 21:22 Dose: 100 mls/hr Documented By: FLAVIO Ioversol (Optiray 320 125ml) 119 ml IV ONCE ONE Stop: 04/30/24 22:21 Last Admin: 04/30/24 22:20 Dose: 119 ml Documented By: ZOFIA Angel (Rapid Sequence Induction Bag) Confirm Administered Dose 1 each N/A .STK-MED ONE Stop: 04/30/24 20:21 Last Admin: 04/30/24 23:59 Dose: Not Given Documented By: [id number] Jeanne (Stat Iv Infusion Titration Per Protocol) 1 each N/A NOW STA Stop: 04/30/24 20:46 Last Admin: 05/01/24 00:00 Dose: Not Given Documented By: [id number] Propofol (Propofol Iv Emulsion 10 Mg/Ml 100 Ml Vial) Confirm Administered Dose 1,000 mg IV .STK-MED ONE Stop: 04/30/24 20:33 Last Admin: 04/30/24 21:07 Dose: Not Given Documented By: [email or web address] Propofol (Propofol Iv Emulsion 10 Mg/Ml 100 Ml Vial) Confirm Administered Dose 1,000 mg IV .STK-MED ONE Stop: 04/30/24 22:51 Last Admin: 05/01/24 00:00 Dose: Not Given Documented By: [id number] Description This is a 21 electrode EEG with a single channel dedicated to limited EKG. The electrodes were placed in accordance with the International 10-20 system. Interpretation The predominant background activity consists of an irregular 5-6 activity, of up to 40 mV in amplitude,seen distributed over the posterior head regions bilaterally and spreading anteriorly throughout all head regions. This activity attenuates some with eye-opening and other alerting procedures. From time to time, admixed with the background activity was a diffuse, generalized, 3 to 4 Hz activity of low to medium amplitude. Photic stimulation was performed and elicited no change in the background activity and no abnormal responses were seen. Hyperventilation was not performed. A minimal amount of muscle and movement artifact activity contaminated the recording, however, there was a considerable amount of electrical artifact activity seen from time to time throughout the recording (likely ICU equipment and IV pumps). None of this, hindered interpretation to any significant degree. There were times when the patient would move his head in a slight shaking fashion from [id number] and this was recorded by the garage door service technician. No potentially epileptogenic discharges were noted during these times of head movement. Throughout the recording, no focal abnormalities or potentially epileptogenic discharges were seen. In summary, this EEG was abnormal, showing mild (to at best moderate) generalized cerebral dysrhythmia. There were no focal abnormalities or potentially epileptogenic discharges seen, even with intermittent head movement. Clinical Correlation The absence of potentially epileptogenic activity does not exclude a seizure disorder, since interictally, EEGs can be normal. The mild to moderate generalized slowing is consistent with an encephalopathy which could be due to a wide variety of causes. Clinical correlation is required.
[2024-05-01] MEDS: BUMETANIDE 1 MG in SYRINGE 0 ML IV SCH (10:53)
--- NOTE | 2024-05-01 12:09 | Magnetic Resonance Report ---
MR brain wo con HISTORY: 78 years-old Male obtundation, subtherapeutic INR, rule out stroke acute strokelike symptom s COMPARISON: Head CT 04/30/2024 TECHNIQUE: Multiplanar multisequence MRI of the brain was obtained without IV contrast FINDINGS: Motion degraded exam. No restricted diffusion to suggest acute or subacute infarct. The visualized mi dline structures appear unremarkable with degenerative changes of the cervical spine. Large posterior disc osteophyte complex at C3-C4 causes a degree of central canal stenosis. No acute intracranial hemorrhage, midline shift, abnormal extra-axial collection, hydrocephalus or in tra-axial mass. There are apparent areas of nonspecific blooming artifact in the periventricular left cerebrum on image 15 series 6 and within the region of the right thalamus on image 13 series 6, subo ptimally evaluated secondary to motion degradation. Involutional changes with mild scattered T2/FLAIR hyperintense foci in frontal white matter. Cerebral venous sinuses and major arterial flow voids appear patent. Skull, orbits and soft tissues a re unremarkable. Prior bilateral lens repair. Trace right mastoid effusion. IMPRESSION: 1. Motion degraded exam without acute intracranial abnormality. 2. No acute or subacute infarct. 3. Involutional changes with mild chronic microvascular ischemic disease. ACT 112: Negative or not required by law. The above report was generated using voice recognition software. It may contain grammatical, syntax o r spelling errors. Electronically signed by: Nirmal Villa M.D. 05/01/2024 12:08 PM
[2024-05-01] MEDS: TUBE FEEDING WATER FLUSH OG SCH (12:53)
[2024-05-01] MEDS: PEPTAMEN INTENSE VHP 1.0 CAL 1,000 ML BAG OG SCH (12:54)
--- NOTE | 2024-05-01 13:14 | XCELERA ---
[id number] [id number]
[2024-05-01 13:30] LABS: ANTI-Xa, UFH(UnfractionatedHep 0.24 IU/ml (0.3-0.7)
--- NOTE | 2024-05-01 15:35 | Electrocardiogram Report ---
Test Reason : Blood Pressure : */* mmHG Vent. Rate : 111 BPM Atrial Rate : * BPM P-R Int : * ms QRS Dur : 138 ms QT Int : 390 ms P-R-T Axes : * 14 -11 degrees QTcB Int : 530 ms Atrial fibrillation with rapid ventricular response Right bundle branch block Abnormal ECG No previous ECGs available Confirmed by Ferny Carrera ([id number]) on 05/01/2024 3:35:14 PM Referred By: REFERRED SELF Confirmed By: Ferny Carrera
--- NOTE | 2024-05-01 17:29 | Billing Data ---
Date of Service May 01, 2024 Coding Level of Care Code 34114 SUB INP/OBS CARE
[2024-05-01 19:19] LABS: ANTI-Xa, UFH(UnfractionatedHep 0.22 IU/ml (0.3-0.7)
[2024-05-01 19:22] LABS: Magnesium 2.2 mg/dl (1.7-2.4); Phosphorus 2.2 mg/dl (2.5-4.9); Potassium 3.5 mmol/L (3.5-5.1)
--- NOTE | 2024-05-01 20:06 | Billing Data ---
Date of Service May 01, 2024 Coding Level of Care Code 29225 CRITICAL CARE
[2024-05-01] MEDS: POT PHOSPHATE MONOBASIC W/ SOD TAB NG SCH (20:31)
[2024-05-01] MEDS: POTASSIUM CHLORIDE 20 MEQ/15 ML UDC NG SCH (20:31)
[2024-05-01] MEDS: cefTRIAXone SODIUM 2,000 MG/50 ML BAG IV SCH (20:32)
[2024-05-02 02:56] LABS: ANTI-Xa, UFH(UnfractionatedHep 0.27 IU/ml (0.3-0.7)
[2024-05-02 05:08] LABS: Basophils # (auto) 0.09 K/uL (0.00-0.20); Basophils % (auto) 0.8 %; Eosinophils # (auto) 0.24 K/uL (0.00-0.50); Hematocrit (blood only) 36.3 % (42.0-52.0); Hemoglobin 11.1 g/dl (14.0-18.0); Immature Granulocytes # (auto) 0.29 K/uL (0.01-0.20); Immature Granulocytes % (auto) 2.4 %; Lymphocytes # (auto) 2.03 K/uL (1.20-3.40); Mean Corpuscular Hemoglobin 29.4 pg (25.0-34.0); Mean Corpuscular Hgb Conc 30.6 g/dL (32.0-36.0); Mean Platelet Volume 11.6 fL (9.4-12.4); Monocytes # (auto) 2.43 K/uL (0.11-0.59); Monocytes % (auto) 20.4 %; Neutrophils # (auto) 6.83 K/uL (1.40-6.50); Neutrophils % (auto) 57.4 %; Platelet Count 183 K/uL (130-400); RDW Coefficient of Variation 18.7 % (11.5-14.5); Red Blood Count 3.78 M/uL (4.70-6.10); White Blood Count 11.91 K/ul (4.8-10.8)
[2024-05-02 05:24] LABS: Calcium 8.8 mg/dl (8.6-10.3); Creatinine Clr Calc Pharmacy 81.6 ml/min; Magnesium 2.2 mg/dl (1.7-2.4); Phosphorus 2.5 mg/dl (2.5-4.9); Potassium 3.8 mmol/L (3.5-5.1)
[2024-05-02] MEDS: POT PHOSPHATE MONOBASIC W/ SOD TAB NG SCH (05:56)
[2024-05-02] MEDS: POTASSIUM CHLORIDE 20 MEQ/15 ML UDC NG SCH ×2 (05:56→18:06)
--- NOTE | 2024-05-02 06:48 | Hospitalist Progress Note ---
Date of Service May 02, 2024 Assessment & Plan (1) Metabolic encephalopathy: (2) Acute and chronic respiratory failure with hypoxia: (3) CHF exacerbation: (4) Respiratory failure: (5) Pleural effusion: (6) Hypoxia: Plan Pt is a 78 yo male with a PMHx of CAD, HFpEF, Afib on warfarin, T2DM w/peripheral neuropathy, OHS, chronic venous stasis, chronic hypoxic respiratory failure on chronic home O2 (2-2.5L) admitted after being found down at home for an undetermined amount of time. Per ICU, to attempt spontaneous breathing trial today. #Acute hypoxic resp failure - in the setting of OHS/RONNELL and + noncovid 19 coronavirus - also with a hx of HFpEF - CT Chest: no PE, +ground glass opacities/septal thickening, R>L pleural effusion with associated compressive atelectasis - normal baseline O2 use 2-2.5 L, unclear CPAP/bipap use at this time - Follow BCx and UCx; on CTX and azithromycin #Hypotension - in the setting of acute illness - on small amount levophed this morning #Altered mental status - on admission, most likely secondary to CO2 retention/metabolic encephalopathy - CT imaging negative for acute pathology - MRI ordered #DMT2 - Hx of t2DM on metformin and Jariance - held - ISS - goal BG 140-180 VTE ppx: Heparin Diet: NPO given vent status Admission and Anticipated Discharge Date Admission Date: April 30, 2024 Supervising Physician Co-Signing Physician Notes I personally examined the patient and verified all rodarte points of history and exam, discussed case, and agree with decision making with Dr Conde intubated but is off sedation vitals noted intubated sedated ETT in place breathing unlabored no accessory muscles on vent. labs and diagnostics noted shock - probably cardiogenic possibly related to acute on chronic HFpEF and acute on chronic hypoxic respiratory failure due to same - can't rule out sepsis/septic shock due to viral vs bacterial pneumonia - continue current care, vent weaning/pressors off, sedation off. appreciate ICU management. otherwise as above Subjective Pt seen at bedside this morning, intubated and sedated on low dose propofol, non responsive to verbal stimuli. Nurse reports he was on [facility] hospice prior to arrival, unclear story on how that happened. He lives at home with his son who is disabled and his sons significant other who is the crime scene investigator for both of them. Per nurse conversation with son yesterday, pt has a bipap but does not use it reliably. Review of Systems Review of Systems: Per HPI. Physical Exam Physical Exam: General:Intubated and on ventilator Cardio: Regular rate and rhythm, Resp:On ventilator,, no wheezes heard in the upper lung gaytan GI: Soft and nontender, nondistended, bowel sounds hypoactive Skin: Warm, pink, dry, Results & Data Results & Data Vital Signs (Past 12 Hours) Vital Signs Temp Pulse Resp BP Pulse Ox O2 Del Method FiO2 05/02/24 04:30 100/67 05/02/24 04:15 36.7 C 86 20 92 05/02/24 04:00 121/68 05/02/24 04:00 121/68 05/02/24 04:00 30 05/02/24 03:57 36.8 C 81 14 95 05/02/24 03:39 36.7 C 85 22 93 05/02/24 03:30 126/74 05/02/24 03:30 126/74 05/02/24 03:16 79 15 94 30 05/02/24 03:15 36.7 C 74 15 94 05/02/24 03:00 36.7 C 79 16 92 05/02/24 03:00 107/64 05/02/24 03:00 107/64 05/02/24 03:00 107/64 05/02/24 03:00 107/64 05/02/24 03:00 107/64 05/02/24 02:57 36.7 C 80 19 92 05/02/24 02:30 36.6 C 89 21 91 05/02/24 02:30 125/108 H 05/02/24 02:30 125/108 H 05/02/24 02:15 36.6 C 80 19 91 05/02/24 02:06 36.6 C 80 18 91 05/02/24 01:54 36.6 C 89 14 87 L 05/02/24 01:39 36.6 C 78 15 96 05/02/24 01:30 112/68 05/02/24 01:30 112/68 05/02/24 01:30 112/68 05/02/24 01:21 36.6 C 71 14 97 05/02/24 01:03 36.6 C 70 14 97 05/02/24 01:01 89/56 L 05/02/24 00:51 36.6 C 70 14 96 05/02/24 00:30 36.5 C 82 14 95 05/02/24 00:30 93/77 L 05/02/24 00:30 93/77 L 05/02/24 00:30 93/77 L 05/02/24 00:06 36.5 C 82 15 97 05/02/24 00:00 117/61 05/02/24 00:00 117/61 05/02/24 00:00 30 05/02/24 00:00 88 05/01/24 23:48 36.5 C 79 14 97 05/01/24 23:30 116/95 05/01/24 23:30 116/95 05/01/24 23:30 36.5 C 76 15 97 05/01/24 23:15 36.4 C L 64 15 98 05/01/24 23:06 36.4 C L 67 14 96 05/01/24 23:00 111/65 05/01/24 22:51 36.4 C L 69 14 97 05/01/24 22:30 105/67 05/01/24 22:27 Mechanical Vent 05/01/24 22:14 82 15 97 30 05/01/24 22:06 36.4 C L 74 15 96 05/01/24 22:00 103/65 05/01/24 21:48 36.5 C 88 16 95 05/01/24 21:33 36.6 C 89 26 H 91 05/01/24 21:33 118/77 05/01/24 21:33 118/77 05/01/24 21:24 36.6 C 96 H 16 97 05/01/24 21:09 36.7 C 79 14 97 05/01/24 21:00 107/56 L 05/01/24 21:00 107/56 L 05/01/24 20:54 36.7 C 69 14 96 05/01/24 20:45 36.7 C 79 14 96 05/01/24 20:30 36.7 C 82 17 93 05/01/24 20:30 119/86 05/01/24 20:27 36.7 C 75 14 93 05/01/24 20:00 109/70 05/01/24 20:00 109/70 05/01/24 20:00 109/70 05/01/24 20:00 36.6 C 85 14 96 05/01/24 20:00 30 05/01/24 19:48 36.6 C 74 14 96 05/01/24 19:39 36.6 C 77 14 100 05/01/24 19:34 83 15 93 30 05/01/24 19:30 121/67 05/01/24 19:30 121/67 05/01/24 19:27 36.6 C 65 14 96 05/01/24 19:15 36.7 C 76 14 96 05/01/24 19:00 36.7 C 81 15 96 Resident Activity Tracking Resident Involvement: Resident Care Provided Care Provided: Adult Hospital Medicine
--- NOTE | 2024-05-02 08:08 | Critical Care Progress Note ---
Date of Service May 02, 2024 Assessment & Plan (1) CHF exacerbation: (2) Acute and chronic respiratory failure with hypoxia: (3) Metabolic encephalopathy: (4) Lactic acid acidosis: Plan Reason Critically Ill: Acute on chronic hypoxemic respiratory failure Acute exacerbation of heart failure Medication noncompliance Subtherapeutic INR Acute metabolic encephalopathy, rule out CVA Bilateral pleural effusion Lactic acidosis likely 2/2 hypoxemia Neuro - [facility] ICU: Unable to assess --Metabolic encephalopathy CT head negative for bleed or acute ischemic changes. No CTA pursued MRI of the brain 05/01/2024, negative for any acute changes, no acute infarct Continue propofol infusion. Fentanyl PRN EEG 05/01/2024 absence of epileptogenic activity, mild to moderate generalized slowing consistent with encephalopathy Cardiac - -- S/p hypotension Multifactorial Sedation as well as sepsis cannot be ruled out chest Continue with vasopressor support to keep MAP greater than 65 -- Acute HFpEF 2D echo 05/01/2024: EF 60-65%, mild TR, RV not well-visualized BNP 506 with unknown baseline Troponin 36.6, admit EKG non-ischemic --Prolonged QTc Avoid QT prolonging medication Keep potassium greater than 4, phosphorus greater than 3, magnesium greater than 2 -- History of A-fib On warfarin at home Respiratory - -- VDRF Secondary to altered mental status for airway protection Continue with ventilatory support Keep RASS -1 Daily sedation holidays and SBT's Chlorhexidine mouthwash -- Bilateral pleural effusions Likely from HFpEF Continue with diuresis GI - -- No acute issues RENAL/LYTES - -- Monitor BUNs/creatinine Avoid nephrotoxic medication ENDO - No acute concerns BG 140-180 per [facility] guidelines HEME - -- Monitor H&H ID - -- Multiple source of infection Urine with positive leukocyte esterase as well as bacteria Procalcitonin 0.19 Continue with antibiotics --Prophylaxis VTE: Heparin drip GI: None Lines: Peripheral Diet: Tube feeds Plan: In/out: -286, urine output 2241, +936 mL since admission Potassium being replaced. I will increase Bumex to 2 mg twice daily, and will agree to be at least -1 L on a daily basis Trial of SBT today Given the QTc is 513 will discontinue azithromycin As per case management patient was apparently on hospice care. When the family comes in today we will try to readdress goals of care. I have personally spent 37 minutes of critical care time in the direct management of this patient. This is a life/limb threatening event. This includes time spent evaluating patient, direct bedside care, chart review, placing orders, interpretation of diagnostic studies, discussion with consultants, patient, and family members, as well as other required patient management activities. This time is exclusive of all separately billable procedures, and teaching time and separate from and in addition to any other critical care service time. Thank you for allowing us to participate in the care of this patient. Please refer to my attending physician's documentation for any further recommendations. Admission and Anticipated Discharge Date Admission Date: April 30, 2024 Subjective Patient seen and examined at bedside. No acute distress, no adverse events overnight He was on propofol 20. He was RASS -1 He did start to wake up but he was not having good inspiratory effort on pressure support Spiking low-grade fever. Tmax 37.6 Diuresing with Bumex Off vasopressors as of 4 AM today Review of Systems 2 Review of Systems: All systems reviewed & are unremarkable except as noted in Subjective Physical Exam 2 Physical Exam: Constitutional: No acute distress HEENT: PERRLA Respiratory system: Decreased air entry bilaterally, minimal expiratory wheeze bilaterally, no rhonchi, positive crackles bilateral lower lobes CVS: S1-S2 positive, no murmurs or gallops Abdomen: Soft, nontender, nondistended, positive bowel sounds x4 Extremities: +2 pulses bilaterally radialis/ dorsalis pedis, no cyanosis, +1 pitting edema bilateral lower extremity Neuro: RASS -1, breathing over the vent Psych: Unable to assess G/U: Positive Esteves Skin: no rashes, warm and dry Lymphatic: no cervical or axillary lymphadenopathy Results & Data Results & Data Vital Signs (Past 12 Hours) Vital Signs Temp Pulse Resp BP Pulse Ox O2 Del Method FiO2 05/02/24 07:46 84 14 95 35 05/02/24 07:00 35 05/02/24 04:30 100/67 05/02/24 04:15 36.7 C 86 20 92 05/02/24 04:00 121/68 05/02/24 04:00 121/68 05/02/24 04:00 30 05/02/24 03:57 36.8 C 81 14 95 05/02/24 03:39 36.7 C 85 22 93 05/02/24 03:30 126/74 05/02/24 03:30 126/74 05/02/24 03:16 79 15 94 30 05/02/24 03:15 36.7 C 74 15 94 05/02/24 03:00 36.7 C 79 16 92 05/02/24 03:00 107/64 05/02/24 03:00 107/64 05/02/24 03:00 107/64 05/02/24 03:00 107/64 05/02/24 03:00 107/64 05/02/24 02:57 36.7 C 80 19 92 05/02/24 02:30 36.6 C 89 21 91 05/02/24 02:30 125/108 H 05/02/24 02:30 125/108 H 05/02/24 02:15 36.6 C 80 19 91 05/02/24 02:06 36.6 C 80 18 91 05/02/24 01:54 36.6 C 89 14 87 L 05/02/24 01:39 36.6 C 78 15 96 05/02/24 01:30 112/68 05/02/24 01:30 112/68 05/02/24 01:30 112/68 05/02/24 01:21 36.6 C 71 14 97 05/02/24 01:03 36.6 C 70 14 97 05/02/24 01:01 89/56 L 05/02/24 00:51 36.6 C 70 14 96 05/02/24 00:30 36.5 C 82 14 95 05/02/24 00:30 93/77 L 05/02/24 00:30 93/77 L 05/02/24 00:30 93/77 L 05/02/24 00:06 36.5 C 82 15 97 05/02/24 00:00 117/61 05/02/24 00:00 117/61 05/02/24 00:00 30 05/02/24 00:00 88 05/01/24 23:48 36.5 C 79 14 97 05/01/24 23:30 116/95 05/01/24 23:30 116/95 05/01/24 23:30 36.5 C 76 15 97 05/01/24 23:15 36.4 C L 64 15 98 05/01/24 23:06 36.4 C L 67 14 96 05/01/24 23:00 111/65 05/01/24 22:51 36.4 C L 69 14 97 05/01/24 22:30 105/67 05/01/24 22:27 Mechanical Vent 05/01/24 22:14 82 15 97 30 05/01/24 22:06 36.4 C L 74 15 96 05/01/24 22:00 103/65 05/01/24 21:48 36.5 C 88 16 95 05/01/24 21:33 36.6 C 89 26 H 91 05/01/24 21:33 118/77 05/01/24 21:33 118/77 05/01/24 21:24 36.6 C 96 H 16 97 05/01/24 21:09 36.7 C 79 14 97 05/01/24 21:00 107/56 L 05/01/24 21:00 107/56 L 05/01/24 20:54 36.7 C 69 14 96 05/01/24 20:45 36.7 C 79 14 96 05/01/24 20:30 36.7 C 82 17 93 05/01/24 20:30 119/86 05/01/24 20:27 36.7 C 75 14 93 Laboratory Results 05/02/24 04:12 05/02/24 04:03 Coding Level of Care Code 45178 CRITICAL CARE 1ST 30-74M Diagnoses CHF exacerbation I50.9 Acute and chronic respiratory failure with hypoxia J96.21 Metabolic encephalopathy G93.41 Lactic acid acidosis E87.20
[2024-05-02 08:50] LABS: Thyroid Stimulating Hormone 1.809 uIu/ml (0.300-4.500)
[2024-05-02 10:00] LABS: ANTI-Xa, UFH(UnfractionatedHep 0.28 IU/ml (0.3-0.7)
[2024-05-02] MEDS: BUMETANIDE 2 MG in SYRINGE 0 ML IV SCH (10:42)
[2024-05-02] MEDS: ACETAMINOPHEN SUSP 325 MG/10.15 ML UDC PO PRN (15:13)
--- NOTE | 2024-05-02 16:07 | Electrocardiogram Report ---
Test Reason : Blood Pressure : */* mmHG Vent. Rate : 103 BPM Atrial Rate : * BPM P-R Int : * ms QRS Dur : 140 ms QT Int : 392 ms P-R-T Axes : * 30 -13 degrees QTcB Int : 513 ms Atrial fibrillation with rapid ventricular response Right bundle branch block Abnormal ECG When compared with ECG of 30-Apr-2024 21:00, No significant change was found Confirmed by Ferny Carrera ([id number]) on 05/02/2024 4:07:09 PM Referred By: REFERRED SELF Confirmed By: Ferny Carrera
[2024-05-02 17:31] LABS: BUN Creatinine Ratio 20.8 (10-20); Calcium 8.3 mg/dl (8.6-10.3); Creatinine Clr Calc Pharmacy 84.7 ml/min; Magnesium 2.1 mg/dl (1.7-2.4); Phosphorus 3.2 mg/dl (2.5-4.9); Potassium 3.8 mmol/L (3.5-5.1)
--- NOTE | 2024-05-02 17:47 | Billing Data ---
Date of Service May 02, 2024 Coding Level of Care Code 76788 SUB INP/OBS CARE
[2024-05-02] MEDS: ACETAMINOPHEN SUSP 325 MG/10.15 ML UDC PO STA (18:06)
[2024-05-02] MEDS: EUCERIN CR 120 GM JAR EXT SCH (20:41)
[2024-05-02] MEDS: MICONAZOLE NITRATE POWDER 85 GM EXT SCH (20:41)
[2024-05-03 05:18] LABS: Basophils # (auto) 0.04 K/uL (0.00-0.20); Basophils % (auto) 0.7 %; Eosinophils % (auto) 1.6 %; Hematocrit (blood only) 34.7 % (42.0-52.0); Hemoglobin 10.7 g/dl (14.0-18.0); Immature Granulocytes # (auto) 0.07 K/uL (0.01-0.20); Immature Granulocytes % (auto) 1.1 %; Lymphocytes % (auto) 14.7 %; Mean Corpuscular Hemoglobin 29.4 pg (25.0-34.0); Mean Corpuscular Hgb Conc 30.8 g/dL (32.0-36.0); Mean Corpuscular Volume 95.3 fL (80.0-100.0); Monocytes # (auto) 0.56 K/uL (0.11-0.59); Monocytes % (auto) 9.2 %; Neutrophils # (auto) 4.44 K/uL (1.40-6.50); Neutrophils % (auto) 72.7 %; Platelet Count 178 K/uL (130-400); RDW Coefficient of Variation 18.4 % (11.5-14.5); RDW Standard Deviation 64.2 fL (36.4-46.3); Red Blood Count 3.64 M/uL (4.70-6.10); White Blood Count 6.11 K/ul (4.8-10.8)
[2024-05-03 05:30] LABS: BUN Creatinine Ratio 18.8 (10-20); Calcium 8.1 mg/dl (8.6-10.3); Creatinine Clr Calc Pharmacy 80.6 ml/min; Potassium 3.8 mmol/L (3.5-5.1)
[2024-05-03 05:35] LABS: ANTI-Xa, UFH(UnfractionatedHep 0.31 IU/ml (0.3-0.7)
[2024-05-03] MEDS: MAGNESIUM OXIDE 400 MG TAB NG SCH (06:11)
[2024-05-03] MEDS: POTASSIUM CHLORIDE 20 MEQ/15 ML UDC NG SCH (06:11)
--- NOTE | 2024-05-03 06:48 | Hospitalist Progress Note ---
Date of Service May 03, 2024 Assessment & Plan (1) Metabolic encephalopathy: (2) Acute and chronic respiratory failure with hypoxia: (3) CHF exacerbation: (4) Respiratory failure: (5) Pleural effusion: (6) Hypoxia: Plan Pt is a 78 yo male with a PMHx of CAD, HFpEF, Afib on warfarin, T2DM w/peripheral neuropathy, OHS, chronic venous stasis, chronic hypoxic respiratory failure on chronic home O2 (2-2.5L) admitted after being found down at home for an undetermined amount of time. Per ICU, to attempt spontaneous breathing trial again today. #Acute hypoxic resp failure - in the setting of OHS/RONNELL with bipap noncompliance and + noncovid 19 coronavirus - also with a hx of HFpEF and clinically on admission appeared to be volume overloaded - CT Chest: no PE, +ground glass opacities/septal thickening, R>L pleural effusion with associated compressive atelectasis - normal baseline O2 use 2-2.5 L, unclear CPAP/bipap use at this time - Follow BCx and UCx; on CTX and azithromycin - continue diuresis #Hypotension, resolved - in the setting of acute illness - no longer requiring pressors #Altered mental status - on admission, most likely secondary to CO2 retention/metabolic encephalopathy - CT imaging negative for acute pathology - MRI; no acute or subacute stroke #DMT2 - Hx of t2DM on metformin and Jariance - held - ISS - goal BG 140-180 VTE ppx: Heparin Diet: NPO given vent status Admission and Anticipated Discharge Date Admission Date: April 30, 2024 Supervising Physician Co-Signing Physician Notes I personally examined the patient and verified all rodarte points of history and exam, discussed case, and agree with decision making with Dr Conde extubated. doing better overall. nursing notes no new needs. vitals noted on bipap fatigued but responds, nad. lungs quiet but clear no r/r/w good effort. shock - probably cardiogenic possibly related to acute on chronic HFpEF and acute on chronic hypoxic respiratory failure due to same - can't rule out sepsis/septic shock due to viral vs bacterial pneumonia - improving. off vent. continue supportive care/continue current management otherwise as above Subjective Pt seen at bedside this morning, on ventilator but not sedated. He responds to movement commands. No acute distress. He is able to write down on a notepad that he wants to have the tube removed and writes he that he wants to be able to eat and drink. Review of Systems Review of Systems: Per HPI. Physical Exam Physical Exam: General:Intubated and on ventilator but not sedated Cardio: Tachycardic and regular rhythm, Resp:On ventilator,, no wheezes heard in the upper lung gaytan, lower lobe crackles noted GI: Soft and nontender, nondistended, bowel sounds hypoactive Skin: Warm, pink, dry, Results & Data Results & Data Vital Signs (Past 12 Hours) Vital Signs Temp Pulse Resp BP Pulse Ox O2 Del Method FiO2 05/03/24 06:03 37.7 C H 80 15 97 05/03/24 06:00 104/72 05/03/24 06:00 104/72 05/03/24 06:00 104/05/03/24 06:00 10405/03/24 05:33 37.7 C H 89 15 98 05/03/24 05:03 37.8 C H 88 15 95 05/03/24 05:00 111/66 05/03/24 04:54 37.8 C H 92 H 18 96 05/03/24 04:03 37.7 C H 93 H 16 96 05/03/24 04:00 119/72 05/03/24 04:00 119/72 05/03/24 04:00 119/72 05/03/24 04:00 40 05/03/24 03:57 81 14 96 40 05/03/24 03:45 37.7 C H 85 14 96 05/03/24 03:06 37.6 C H 96 H 14 95 05/03/24 03:00 107/73 05/03/24 03:00 107/73 05/03/24 02:51 37.7 C H 85 14 95 05/03/24 02:00 141/72 H 05/03/24 02:00 37.8 C H 106 H 20 95 05/03/24 01:00 110/05/03/24 01:00 110/05/03/24 01:00 110/05/03/24 01:00 110/05/03/24 01:00 37.7 C H 93 H 17 97 05/03/24 00:03 37.7 C H 82 15 95 05/03/24 00:00 111/78 05/03/24 00:00 40 05/02/24 23:57 37.6 C H 96 H 20 95 05/02/24 23:07 86 15 95 40 05/02/24 23:00 37.5 C 85 14 95 05/02/24 23:00 101/71 05/02/24 22:00 119/90 05/02/24 22:00 119/90 05/02/24 22:00 119/90 05/02/24 22:00 119/90 05/02/24 22:00 119/90 05/02/24 22:00 37.6 C H 128 H 33 H 99 05/02/24 21:12 37.7 C H 91 H 24 96 05/02/24 20:00 37.9 C H 92 H 22 95 05/02/24 20:00 120/64 05/02/24 20:00 120/64 05/02/24 20:00 120/64 05/02/24 20:00 120/64 05/02/24 19:54 Mechanical Vent 05/02/24 19:43 40 05/02/24 19:40 102 H 20 96 40 05/02/24 19:03 37.9 C H 105 H 32 H 94 05/02/24 19:00 107/65 05/02/24 19:00 107/65 05/02/24 19:00 107/65 Resident Activity Tracking Resident Involvement: Resident Care Provided Care Provided: Adult Hospital Medicine
--- NOTE | 2024-05-03 08:43 | Critical Care Progress Note ---
Date of Service May 03, 2024 Assessment & Plan (1) CHF exacerbation: (2) Acute and chronic respiratory failure with hypoxia: (3) Metabolic encephalopathy: (4) Lactic acid acidosis: Plan Reason Critically Ill: Acute on chronic hypoxemic respiratory failure Acute exacerbation of heart failure Medication noncompliance Subtherapeutic INR Acute metabolic encephalopathy, rule out CVA Bilateral pleural effusion Lactic acidosis likely 2/2 hypoxemia Neuro - [facility] ICU: Unable to assess --Metabolic encephalopathy CT head negative for bleed or acute ischemic changes. No CTA pursued MRI of the brain 05/01/2024, negative for any acute changes, no acute infarct Continue propofol infusion. Fentanyl PRN EEG 05/01/2024 absence of epileptogenic activity, mild to moderate generalized slowing consistent with encephalopathy Cardiac - -- S/p hypotension Multifactorial Off vasopressors as of 05/02/2024 -- Acute HFpEF 2D echo 05/01/2024: EF 60-65%, mild TR, RV not well-visualized BNP 506 with unknown baseline Troponin 36.6, admit EKG non-ischemic --Prolonged QTc Avoid QT prolonging medication Keep potassium greater than 4, phosphorus greater than 3, magnesium greater than 2 -- History of A-fib On warfarin at home Respiratory - -- VDRF Secondary to altered mental status for airway protection Continue with ventilatory support Keep RASS -1 Daily sedation holidays and SBT's -- Bilateral pleural effusions Likely from HFpEF Continue with diuresis GI - -- No acute issues RENAL/LYTES - -- Monitor BUNs/creatinine Avoid nephrotoxic medication ENDO - No acute concerns BG 140-180 per [facility] guidelines HEME - -- Monitor H&H ID - -- Multiple source of infection Urine with positive leukocyte esterase as well as bacteria Procalcitonin 0.19 Continue with Rocephin for 5 days --Prophylaxis VTE: Heparin drip GI: None Lines: Peripheral Diet: Tube feeds Plan: In/out: -195, urine output 2525, +800 mL since coming to the hospital Potassium and magnesium being replaced Continue with diuretics. Trial of extubation today to BiPAP I did discuss the patient that if he fails extubation would he want to be reintubated, he wrote down on the piece of paper that he will decide that later I have personally spent 36 minutes of critical care time in the direct management of this patient. This is a life/limb threatening event. This includes time spent evaluating patient, direct bedside care, chart review, placing orders, interpretation of diagnostic studies, discussion with consultants, patient, and family members, as well as other required patient management activities. This time is exclusive of all separately billable procedures, and teaching time and separate from and in addition to any other critical care service time. Thank you for allowing us to participate in the care of this patient. Please refer to my attending physician's documentation for any further recommendations. Admission and Anticipated Discharge Date Admission Date: April 30, 2024 Subjective Patient seen and examined at bedside. No acute distress, notable symptoms overnight He was on spontaneous breathing trial at the time of examination He was able to answer all the questions. Denied any headache, no chest pain He was excited to have the tube out. He was saturating 97% on 40% FiO2 Tmax 38.1 Review of Systems 2 Review of Systems: All systems reviewed & are unremarkable except as noted in Subjective and Unobtainable due to endotracheal tube Physical Exam 2 Physical Exam: Constitutional: No acute distress HEENT: PERRLA Respiratory system: Decreased air entry bilaterally, minimal expiratory wheeze bilaterally, no rhonchi, positive crackles bilateral lower lobes CVS: S1-S2 positive, no murmurs or gallops Abdomen: Soft, nontender, nondistended, positive bowel sounds x4 Extremities: +2 pulses bilaterally radialis/ dorsalis pedis, no cyanosis, +1 pitting edema bilateral lower extremity Neuro: Awake and alert, answering questions appropriately Psych: Unable to assess G/U: Positive Esteves Skin: no rashes, warm and dry Lymphatic: no cervical or axillary lymphadenopathy Results & Data Results & Data Vital Signs (Past 12 Hours) Vital Signs Temp Pulse Resp BP Pulse Ox O2 Del Method FiO2 05/03/24 08:03 37.7 C H 85 17 97 05/03/24 08:00 116/72 05/03/24 08:00 40 05/03/24 08:00 99 H 05/03/24 07:54 92 H 19 97 40 05/03/24 07:43 Mechanical Vent 40 05/03/24 07:03 37.8 C H 91 H 17 96 Mechanical Vent 40 05/03/24 07:00 120/79 05/03/24 06:03 37.7 C H 80 15 97 05/03/24 06:00 104/72 05/03/24 06:00 104/72 05/03/24 06:00 104/72 05/03/24 06:00 104/72 05/03/24 05:33 37.7 C H 89 15 98 05/03/24 05:03 37.8 C H 88 15 95 05/03/24 05:00 111/66 05/03/24 04:54 37.8 C H 92 H 18 96 05/03/24 04:03 37.7 C H 93 H 16 96 05/03/24 04:00 119/72 05/03/24 04:00 119/72 05/03/24 04:00 119/72 05/03/24 04:00 40 05/03/24 03:57 81 14 96 40 05/03/24 03:45 37.7 C H 85 14 96 05/03/24 03:06 37.6 C H 96 H 14 95 05/03/24 03:00 107/73 05/03/24 03:00 107/73 05/03/24 02:51 37.7 C H 85 14 95 05/03/24 02:00 141/72 H 05/03/24 02:00 37.8 C H 106 H 20 95 05/03/24 01:00 110/71 05/03/24 01:00 110/71 05/03/24 01:00 110/71 05/03/24 01:00 110/71 05/03/24 01:00 37.7 C H 93 H 17 97 05/03/24 00:03 37.7 C H 82 15 95 05/03/24 00:00 111/78 05/03/24 00:00 40 05/02/24 23:57 37.6 C H 96 H 20 95 05/02/24 23:07 86 15 95 40 05/02/24 23:00 37.5 C 85 14 95 05/02/24 23:00 101/71 05/02/24 22:00 119/90 05/02/24 22:00 119/05/02/24 22:00 119/90 05/02/24 22:00 119/90 05/02/24 22:00 119/90 05/02/24 22:00 37.6 C H 128 H 33 H 99 05/02/24 21:12 37.7 C H 91 H 24 96 Laboratory Results 05/03/24 04:20 05/03/24 04:20 Coding Level of Care Code 14195 CRITICAL CARE 1ST 30-74M Diagnoses CHF exacerbation I50.9 Acute and chronic respiratory failure with hypoxia J96.21 Metabolic encephalopathy G93.41 Lactic acid acidosis E87.20
--- NOTE | 2024-05-03 08:46 | XRay Report ---
XR chest 1V portable CLINICAL HISTORY: f/u COMPARISON STUDY: 04/30/2024 FINDINGS: Endotracheal tube tip is stable between the thoracic inlet and the joaquín. Nasogastric tube tip is off the field of view inferiorly. There is stable cardiomegaly with mild pulmonary vascular c ongestion. Stable opacity in the lung bases with obscuration of the diaphragm and blunting of the cos tophrenic angles. No pneumothorax. IMPRESSION: Stable exam. ACT 112: Negative or not required by law. Electronically signed by: Joni Summers M.D. 05/03/2024 8:45 AM
--- NOTE | 2024-05-03 15:17 | Billing Data ---
Date of Service May 03, 2024 Coding Level of Care Code 96036 SUB INP/OBS CARE
[2024-05-03 15:47] LABS: BUN Creatinine Ratio 18.9 (10-20); Calcium 8.6 mg/dl (8.6-10.3); Creatinine Clr Calc Pharmacy 90.5 ml/min; Potassium 3.8 mmol/L (3.5-5.1)
--- NOTE | 2024-05-03 20:20 | Communication Note ---
Date of Service: May 03, 2024 Patient seen on evening rounds. Events of today noted. Patient was extubated in the pot maker without complication. He is currently resting comfortably on minimal BIPAP settings. He is AAOx3. Hemodynamically stable. He is suitable for downgrade at this juncture. ICU will sign off, Pulmonary to follow on the floor. Discussed with Dr. Pool and primary team ([place]). Coding Level of Care Code None
[2024-05-04 06:30] LABS: Calcium 8.3 mg/dl (8.6-10.3); Creatinine Clr Calc Pharmacy 92.5 ml/min; Magnesium 1.9 mg/dl (1.7-2.4); Phosphorus 3.1 mg/dl (2.5-4.9); Potassium 3.9 mmol/L (3.5-5.1)
[2024-05-04 06:35] LABS: ANTI-Xa, UFH(UnfractionatedHep 0.33 IU/ml (0.3-0.7)
--- NOTE | 2024-05-04 06:43 | Hospitalist Progress Note ---
Date of Service May 04, 2024 Assessment & Plan (1) Metabolic encephalopathy: (2) Acute and chronic respiratory failure with hypoxia: (3) CHF exacerbation: (4) Respiratory failure: (5) Pleural effusion: (6) Hypoxia: Plan Pt is a 78 yo male with a PMHx of CAD, HFpEF, Afib on warfarin, T2DM w/peripheral neuropathy, OHS, chronic venous stasis, chronic hypoxic respiratory failure on chronic home O2 (2-2.5L) admitted after being found down at home for an undetermined amount of time. Talked to pt today who asks that Wei, his son's significant other make decisions on code status for him. This patient has capacity to make decisions at this time. I will stop by in the afternoon when Wei is available to chat as a group about code status and disposition. #Acute hypoxic resp failure - in the setting of OHS/RONNELL with bipap noncompliance and + noncovid 19 coronavirus - also with a hx of HFpEF and clinically on admission appeared to be volume overloaded - CT Chest: no PE, +ground glass opacities/septal thickening, R>L pleural effusion with associated compressive atelectasis - normal baseline O2 use 2-2.5 L, pt states he uses bipap/CPAP at home maybe every other day or so - Follow BCx and UCx; on CTX and azithromycin, continue these - continue diuresis today bumex BID #Hypotension, resolved - in the setting of acute illness - no longer requiring pressors #Altered mental status - on admission, most likely secondary to CO2 retention/metabolic encephalopathy - CT imaging negative for acute pathology - MRI; no acute or subacute stroke #DMT2 - Hx of t2DM on metformin and Jariance - held - ISS - goal BG 140-180 VTE ppx: Heparin Diet: NPO given bipap status Admission and Anticipated Discharge Date Admission Date: April 30, 2024 Supervising Physician Co-Signing Physician Notes I personally examined the patient and verified all rodarte points of history and exam, discussed case, and agree with decision making with Dr Conde feeling better wants to eat vitals noted Awake and alert, fatigued, nad. lungs quiet but overall clear no wheezing. diminished air entry. no accessory muscles. skin without rashes no pallor or icterus no accessory muscles. shock - probably cardiogenic possibly related to acute on chronic HFpEF and acute on chronic hypoxic respiratory failure due to same - can't rule out sepsis/septic shock due to viral vs bacterial pneumonia - improving. continue current care, trial of diet. clarifying goals of care and it sounds as though he (reasonably) wants to discuss w family/caregivers more but also seems to be expressing more disease-management goals of care than palliative goals of care. otherwise as above anticoagulated Subjective Pt seen at bedside today on bipap. He states he is actually feeling really well today compared to the last few days but does state that he feels very hungry and is looking forward to having the bipap off and being able to eat and drink something. He states his breathing feels much better than yesterday. He states he lives at home with his son and his son's (Wei) and that Wei takes care of him. He states he has a hospital bed and other resources at home. When asked if he has hospice services at home, he states he has no idea and that I would have to ask Wei. When I asked pt about his code status and if he were to worsen and need reintubated, he also told me to talk to Wei and when prompted about his wishes he states he would "need a few days" to think it over. Same with CPR. He will think over his code status. He states Wei will be here today also and would like to talk further then. Review of Systems Review of Systems: Per HPI. Physical Exam Physical Exam: General:On bipap, awake and alert and talking Cardio: Regular rate and in afib, Resp:On bipap, no wheezes heard in the upper lung gaytan, lower lobe crackles noted GI: Soft and nontender, nondistended, bowel sounds hypoactive Skin: Warm, pink, dry, Results & Data Results & Data Vital Signs (Past 12 Hours) Vital Signs Temp Pulse Pulse Resp BP BP Pulse Ox 05/04/24 03:00 87 18 96 05/04/24 02:40 36.5 C 95 H 20 128/85 97 05/03/24 23:35 103 H 21 96 05/03/24 23:15 05/03/24 22:59 37 C 87 20 124/85 98 05/03/24 21:54 96 H 05/03/24 21:20 05/03/24 21:08 36.5 C 106 H 20 121/94 93 05/03/24 20:40 02/26/25 20:03 37.3 C 102 H 19 94 05/03/24 20:00 101 H 28 H 95 05/03/24 20:00 112/70 05/03/24 20:00 112/70 05/03/24 19:57 37.3 C 99 H 20 94 05/03/24 19:09 37.4 C 90 22 94 O2 Del Method FiO2 05/04/24 03:00 30 05/04/24 02:40 BiPAP 05/03/24 23:35 30 05/03/24 23:15 BiPAP 30 05/03/24 22:59 BiPAP 05/03/24 21:54 05/03/24 21:20 BiPAP 30 05/03/24 21:08 BiPAP 05/03/24 20:40 BiPAP 05/03/24 20:03 05/03/24 20:00 30 05/03/24 20:00 05/03/24 20:00 05/03/24 19:57 05/03/24 19:09 Resident Activity Tracking Resident Involvement: Resident Care Provided Care Provided: Adult Hospital Medicine
[2024-05-04 07:45] LABS: Basophils # (auto) 0.05 K/uL (0.00-0.20); Basophils % (auto) 0.9 %; Eosinophils # (auto) 0.13 K/uL (0.00-0.50); Eosinophils % (auto) 2.5 %; Hematocrit (blood only) 37.5 % (42.0-52.0); Hemoglobin 11.2 g/dl (14.0-18.0); Immature Granulocytes # (auto) 0.05 K/uL (0.01-0.20); Immature Granulocytes % (auto) 0.9 %; Lymphocytes # (auto) 0.87 K/uL (1.20-3.40); Lymphocytes % (auto) 16.5 %; Mean Corpuscular Hemoglobin 28.9 pg (25.0-34.0); Mean Corpuscular Hgb Conc 29.9 g/dL (32.0-36.0); Mean Corpuscular Volume 96.6 fL (80.0-100.0); Mean Platelet Volume 12.2 fL (9.4-12.4); Monocytes % (auto) 9.5 %; Neutrophils # (auto) 3.67 K/uL (1.40-6.50); Neutrophils % (auto) 69.7 %; Platelet Count 173 K/uL (130-400); RDW Coefficient of Variation 18.4 % (11.5-14.5); RDW Standard Deviation 64.8 fL (36.4-46.3); Red Blood Count 3.88 M/uL (4.70-6.10); White Blood Count 5.27 K/ul (4.8-10.8)
--- NOTE | 2024-05-04 10:29 | Pulmonology Progress Note ---
Date of Service May 04, 2024 Assessment & Plan (1) CHF exacerbation: (2) Acute and chronic respiratory failure with hypoxia: (3) Pleural effusion: (4) Respiratory failure: Plan --Acute on chronic hypoxic respiratory failure with bilateral pleural effusions Likely from acute on chronic HFpEF Usually on 2-2.5 L oxygen at home Continue with diuresis BiPAP nightly and as needed shortness of breath --RONNELL On BiPAP at home -- S/p VDRF Extubated 05/03/2024 -- History of A-fib On warfarin at home Plan: In/out: -3.4 L, urine output 4250, -2.9 L since coming to the hospital Decrease Bumex to 1 mg every 12 I decreased BiPAP to 14/8, okay to take the patient off BiPAP Recommend out of the bed to chair It is reasonable to give trial of food if he is able to being off BiPAP Case was discussed with RN at bedside Please note the above document was generated using voice recognition software. It may contain grammatical, syntax or spelling errors.Any formal questions or concerns about the content, text or information contained within the body of this dictation should be directly addressed to the provider for clarification. Admission and Anticipated Discharge Date Admission Date: April 30, 2024 Subjective Patient seen and examined at bedside. No acute distress, notable symptoms overnight He was on BiPAP 16/10, 30% saturating 96-97% He stated that he is feeling much better compared to when he came to the hospital He says he is able to take deeper breaths Denied any chest pain No abdominal pain No nausea vomiting Review of Systems 2 Review of Systems: All systems reviewed & are unremarkable except as noted in Subjective Physical Exam 2 Physical Exam: Constitutional: No acute distress HEENT: PERRLA, EOMI, hard to hear Respiratory system: Decreased air entry bilaterally, minimal expiratory wheeze bilaterally, no rhonchi, positive crackles bilateral lower lobes CVS: S1-S2 positive, no murmurs or gallops Abdomen: Soft, nontender, nondistended, positive bowel sounds x4 Extremities: +2 pulses bilaterally radialis/ dorsalis pedis, no cyanosis, +1 pitting edema bilateral lower extremity Neuro: Awake and alert to self and place Psych: Normal mood and affect G/U: Positive Esteves Skin: no rashes, warm and dry Lymphatic: no cervical or axillary lymphadenopathy Results & Data Results & Data Vital Signs (Past 12 Hours) Vital Signs Temp Pulse Pulse Resp BP Pulse Ox O2 Del Method 05/04/24 09:07 BiPAP 05/04/24 07:24 37.0 C 95 H 22 120/79 94 BiPAP 05/04/24 03:00 87 18 96 05/04/24 02:40 36.5 C 95 H 20 128/85 97 BiPAP 05/03/24 23:35 103 H 21 96 05/03/24 23:15 BiPAP 05/03/24 22:59 37 C 87 20 124/85 98 BiPAP FiO2 05/04/24 09:07 05/04/24 07:24 05/04/24 03:00 30 05/04/24 02:40 05/03/24 23:35 30 05/03/24 23:15 30 05/03/24 22:59 Laboratory Results 05/04/24 05:55 05/04/24 05:51 PG Care Time/CCT Total # of Minutes Spent Total Time Spent with Patient: Total time spent is greater than 50% in coordination of care (as documented) at patient's floor/unit and/or counseling patient: Coding Level of Care Code 48636 SUB INP/OBS CARE 3/50MIN Diagnoses CHF exacerbation I50.9 Acute and chronic respiratory failure with hypoxia J96.21 Pleural effusion J90 Respiratory failure J96.90
[2024-05-04] MEDS ORDERED: Nursing to Pharmacy Communication SCH (15:00)
[2024-05-04] MEDS: METOPROLOL SUCC 50MG EXT REL TAB PO SCH (16:09)
[2024-05-04] MEDS: INSULIN ASPART PER UNIT CHARGE SC SCH (17:33)
--- NOTE | 2024-05-04 17:40 | Billing Data ---
Date of Service May 04, 2024 Coding Level of Care Code 05996 SUB INP/OBS CARE MIN
[2024-05-04] MEDS: BUMETANIDE 1 MG in SYRINGE 0 ML IV SCH (19:46)
[2024-05-05 06:50] LABS: Basophils # (auto) 0.03 K/uL (0.00-0.20); Basophils % (auto) 0.6 %; Eosinophils # (auto) 0.22 K/uL (0.00-0.50); Eosinophils % (auto) 4.2 %; Hematocrit (blood only) 36.5 % (42.0-52.0); Hemoglobin 11.1 g/dl (14.0-18.0); Immature Granulocytes # (auto) 0.07 K/uL (0.01-0.20); Immature Granulocytes % (auto) 1.3 %; Lymphocytes % (auto) 13.3 %; Mean Corpuscular Hemoglobin 29.4 pg (25.0-34.0); Mean Corpuscular Hgb Conc 30.4 g/dL (32.0-36.0); Mean Corpuscular Volume 96.6 fL (80.0-100.0); Mean Platelet Volume 11.5 fL (9.4-12.4); Monocytes # (auto) 0.57 K/uL (0.11-0.59); Monocytes % (auto) 10.8 %; Neutrophils # (auto) 3.69 K/uL (1.40-6.50); Neutrophils % (auto) 69.8 %; Platelet Count 177 K/uL (130-400); RDW Coefficient of Variation 17.9 % (11.5-14.5); RDW Standard Deviation 62.9 fL (36.4-46.3); Red Blood Count 3.78 M/uL (4.70-6.10); White Blood Count 5.28 K/ul (4.8-10.8)
[2024-05-05 07:12] LABS: BUN Creatinine Ratio 19.8 (10-20); Calcium 8.3 mg/dl (8.6-10.3); Creatinine Clr Calc Pharmacy 96.4 ml/min; Magnesium 1.9 mg/dl (1.7-2.4); Potassium 3.6 mmol/L (3.5-5.1)
--- NOTE | 2024-05-05 07:19 | Hospitalist Progress Note ---
Date of Service May 05, 2024 Assessment & Plan (1) Metabolic encephalopathy: (2) Acute and chronic respiratory failure with hypoxia: (3) CHF exacerbation: (4) Respiratory failure: (5) Pleural effusion: (6) Hypoxia: Plan Pt is a 78 yo male with a PMHx of CAD, HFpEF, Afib on warfarin, T2DM w/peripheral neuropathy, OHS, chronic venous stasis, chronic hypoxic respiratory failure on chronic home O2 (2-2.5L) admitted after being found down at home for an undetermined amount of time. #Acute hypoxic resp failure - in the setting of OHS/RONNELL with bipap noncompliance and + noncovid 19 coronavirus - also with a hx of HFpEF and clinically on admission appeared to be volume overloaded - CT Chest: no PE, +ground glass opacities/septal thickening, R>L pleural effusion with associated compressive atelectasis - normal baseline O2 use 2-2.5 L, pt states he uses bipap/CPAP at home maybe every other day or so - After discussion today with patient, he is hoping to get a new mask for his home BiPAP which is smaller (like the one he is using here) as it is more comfortable - Sputum culture, BCx and UCx negative. Completed azithromycin, currently on day 5 of CTX. Consider discontinuing in the next day if continuing to improve - continue diuresis with bumex BID per pulmonary recommendations - Currently on 4L NC - After extensive conversation, patient has confirmed Full Code status and is very eager to get stronger and more healthy. Despite being on hospice at time of admission, patient does NOT want to go back on hospice at this time. Previously documentation state that his son's significant other Wei is his caregiver and makes his medical decisions- however patient is competent and can make his own medical decisions- and he has expressed that he doesn't want to go back on hospice. Will anticipate eventually going to rehab after discharge to build up strength prior to returning home with family. #Hypotension, resolved - in the setting of acute illness - no longer requiring pressors #Altered mental status - on admission, most likely secondary to CO2 retention/metabolic encephalopathy - CT imaging negative for acute pathology - MRI; no acute or subacute stroke #DMT2 - Hx of t2DM on metformin and Jardiance - held on admission - ISS - goal BG 140-180 VTE ppx: Heparin Diet: Regular, T2DM. Easy to chew. Admission and Anticipated Discharge Date Admission Date: April 30, 2024 Supervising Physician Co-Signing Physician Notes I personally examined the patient and verified all rodarte points of history and exam, discussed case, and agree with decision making with Dr Ahn feeling betterbreathing better vitals noted Awake and alert, fatigued, nad. breathing unlabored no accessory muscles good effort skin no rashes no pallor or icterus neuro no focal deficits shock - probably cardiogenic possibly related to acute on chronic HFpEF and acute on chronic hypoxic respiratory failure due to same - can't rule out sepsis/septic shock due to viral vs bacterial pneumonia - improving. continue current care, doing better. discussed goals of care - clearly and on multiple angles does not want to be a hospice patient, would rather have aggressive care, and is willing to take meds/wear bipap/do therapy otherwise as above anticoagulated will need SNF/rehab Subjective Patient was seen and examined at bedside. No acute events reported overnight. Patient had just finished eating breakfast. States he wore his BiPAP last night and tolerated it ok. Denies abdominal pain or chest pain. Review of Systems Review of Systems: As per above Physical Exam Constitutional: WD/WN, vitals as above Eyes: + anicteric sclerae; no conjunctival abn ormality ENMT: Ears: no external ear abnormality Nose: no external nose abnormality Moist mucous membranes Respiratory: Coarse lungs sounds, wheezes throughout. On nasal cannula. Cardiovascular: Rate/Rhythm: regular rate and regular rhythm Heart Sounds: no murmur Gastrointestinal (Abdomen): Percussion/Palpation: abdomen soft; abdomen nontender and no guarding Musculoskeletal: Moves all limbs independentally Skin: no rashes, warm and dry Psychiatric: A+Ox3, euthymic affect Results & Data Results & Data Vital Signs (Past 12 Hours) Vital Signs Temp Pulse Pulse Resp BP Pulse Ox O2 Del Method 05/05/24 07:10 36.9 C 77 24 122/84 90 BiPAP 05/05/24 02:46 37.2 C 72 19 95/62 L 94 BiPAP 05/05/24 00:55 96 H 20 BiPAP 05/05/24 00:00 116 H 05/04/24 23:08 98 Nasal Cannula 05/04/24 22:50 36.8 C 90 18 106/73 93 BiPAP 05/04/24 21:37 BiPAP 05/04/24 21:32 15 BiPAP 05/04/24 19:36 37.0 C 102 H 18 116/88 94 Nasal Cannula O2 Flow Rate FiO2 05/05/24 07:10 05/05/24 02:46 05/05/24 00:55 30 05/05/24 00:00 05/04/24 23:08 6 05/04/24 22:50 05/04/24 21:37 30 05/04/24 21:32 30 05/04/24 19:36 6 Diagnostic Findings Chest X-Ray 05/05/24 09:39 XR chest 1V portable CLINICAL HISTORY: f/u COMPARISON STUDY: 05/03/2024 FINDINGS: There is interval extubation. There is stable cardiomegaly with pulmonary vascular congestion. Stable bilateral pleural effusions and lung base consolidation. No pneumothorax. IMPRESSION: Interval extubation. Otherwise stable. ACT 112: Negative or not required by law. Electronically signed by: Joni Summers M.D. 05/05/2024 10:05 AM Resident Activity Tracking Resident Involvement: Resident Care Provided Care Provided: Adult Hospital Medicine
[2024-05-05 07:26] LABS: ANTI-Xa, UFH(UnfractionatedHep 0.32 IU/ml (0.3-0.7)
--- NOTE | 2024-05-05 09:41 | Pulmonology Progress Note ---
Date of Service May 05, 2024 Assessment & Plan (1) CHF exacerbation: (2) Acute and chronic respiratory failure with hypoxia: (3) Pleural effusion: (4) Respiratory failure: Plan --Acute on chronic hypoxic respiratory failure with bilateral pleural effusions Likely from acute on chronic HFpEF Usually on 2-2.5 L oxygen at home Continue with diuresis BiPAP nightly and as needed shortness of breath --RONNELL On BiPAP at home -- S/p VDRF Extubated 05/03/2024 -- History of A-fib On warfarin at home Plan: In/out: -1.5 L, urine output 2200, -4.4 L since coming to the hospital Chest x-ray from today does not show any significant change compared to before. He still has bilateral pleural effusion Continue with Bumex to 1 mg every 12 Case was discussed with RN at bedside Recommend goals of care discussion given that he was on hospice before coming to the hospital Please note the above document was generated using voice recognition software. It may contain grammatical, syntax or spelling errors.Any formal questions or concerns about the content, text or information contained within the body of this dictation should be directly addressed to the provider for clarification. Admission and Anticipated Discharge Date Admission Date: April 30, 2024 Subjective Patient seen and examined at bedside. No acute distress, notable symptoms overnight He was saturating 93-94% on 4 L nasal cannula Stated that he is feeling better compared to before Able to tolerate deep breaths. His appetite is poor. He is scared that he might aspirate when he is stressed the reason he is taking this time No dysuria Review of Systems 2 Review of Systems: All systems reviewed & are unremarkable except as noted in Subjective Physical Exam 2 Physical Exam: Constitutional: No acute distress HEENT: PERRLA, EOMI, hard to hear Respiratory system: Decreased air entry bilaterally, minimal expiratory wheeze bilaterally, no rhonchi, positive crackles bilateral lower lobes CVS: S1-S2 positive, no murmurs or gallops Abdomen: Soft, nontender, nondistended, positive bowel sounds x4 Extremities: +2 pulses bilaterally radialis/ dorsalis pedis, no cyanosis, +1 pitting edema bilateral lower extremity Neuro: Awake and alert to self and place Psych: Normal mood and affect G/U: Positive Esteves Skin: no rashes, warm and dry Lymphatic: no cervical or axillary lymphadenopathy Results & Data Results & Data Vital Signs (Past 12 Hours) Vital Signs Temp Pulse Pulse Resp BP Pulse Ox O2 Del Method 05/05/24 07:24 Nasal Cannula 05/05/24 07:10 36.9 C 77 24 122/84 90 BiPAP 05/05/24 02:46 37.2 C 72 19 95/62 L 94 BiPAP 05/05/24 00:55 96 H 20 BiPAP 05/05/24 00:00 116 H 05/04/24 23:08 98 Nasal Cannula 05/04/24 22:50 36.8 C 90 18 106/73 93 BiPAP O2 Flow Rate FiO2 05/05/24 07:24 4 05/05/24 07:10 05/05/24 02:46 05/05/24 00:55 30 05/05/24 00:00 05/04/24 23:08 6 05/04/24 22:50 Laboratory Results 05/05/24 05:51 05/05/24 05:51 PG Care Time/CCT Total # of Minutes Spent Total Time Spent with Patient: Total time spent is greater than 50% in coordination of care (as documented) at patient's floor/unit and/or counseling patient: Coding Level of Care Code 75756 SUB INP/OBS CARE 2/35MIN Diagnoses CHF exacerbation I50.9 Acute and chronic respiratory failure with hypoxia J96.21 Pleural effusion J90 Respiratory failure J96.90
--- NOTE | 2024-05-05 10:07 | XRay Report ---
XR chest 1V portable CLINICAL HISTORY: f/u COMPARISON STUDY: 05/03/2024 FINDINGS: There is interval extubation. There is stable cardiomegaly with pulmonary vascular congesti on. Stable bilateral pleural effusions and lung base consolidation. No pneumothorax. IMPRESSION: Interval extubation. Otherwise stable. ACT 112: Negative or not required by law. Electronically signed by: Joni Summers M.D. 05/05/2024 10:05 AM
[2024-05-05] MEDS: CARBOHYDRATES FOR HYPOGLYCEMIA PO PRN (16:23)
--- NOTE | 2024-05-05 16:57 | Billing Data ---
Date of Service May 05, 2024 Coding Level of Care Code 11436 SUB INP/OBS CARE MIN
--- NOTE | 2024-05-06 06:58 | Hospitalist Progress Note ---
"Date of Service May 06, 2024 Assessment & Plan (1) Metabolic encephalopathy: (2) Acute and chronic respiratory failure with hypoxia: (3) CHF exacerbation: (4) Respiratory failure: (5) Pleural effusion: (6) Hypoxia: Plan Pt is a 78 yo male with a PMHx of CAD, HFpEF, Afib on warfarin, T2DM w/peripheral neuropathy, OHS, chronic venous stasis, chronic hypoxic respiratory failure on chronic home O2 (2-2.5L) admitted after being found down at home for an undetermined amount of time. Acute Hypoxic Respiratory Failure | COVID-19, HFpEF Underlying RONNELL/OHS, BiPAP Non-compliant - Patient with COVID-19 and CHF Exacerbation on presentation - CT Chest: no PE, +ground glass opacities/septal thickening, R>L pleural effusion with associated compressive atelectasis - Multiple potential infectious sources on presentation (urine, lungs, etc.) Continue 7 day course of Ceftriaxone 05/01-05/08 - Normal baseline O2 use 2-2.5 L, inconsistent BiPAP use at home Patient hoping to get new mask for home which is smaller and more comfortable (like the one here) - Sputum culture, BCx and UCx negative. Completed Azithromycin - Pulmonary consultation: Continue Bumex 1 mg Q12h - Currently on 6L NC (increased) Goals of Care 05/05: After extensive conversation, patient has confirmed Full Code status and is very eager to get stronger and more healthy. Despite being on hospice at time of admission, patient does NOT want to go back on hospice at this time. Previously documentation state that his son's significant other Wei is his caregiver and makes his medical decisions- however patient is competent and can make his own medical decisions- and he has expressed that he doesn't want to go back on hospice. Will anticipate eventually going to rehab after discharge to build up strength prior to returning home with family. Hypotension, resolved - in the setting of acute illness - no longer requiring pressors Altered mental status - Present on admission, most likely secondary to CO2 retention/metabolic encephalopathy - Continues to wax and wane - CT imaging negative for acute pathology - MRI; no acute or subacute stroke DMT2 - Hx of t2DM on metformin and Jardiance - held on admission - ISS - goal BG 140-180 VTE ppx: Heparin Diet: Regular, T2DM. Easy to chew. Dispo: PT/OT, Rehab Admission and Anticipated Discharge Date Admission Date: April 30, 2024 Supervising Physician Co-Signing Physician Notes I personally examined the patient and verified all rodarte points of history and exam, discussed case, and agree with decision making with Dr Blount biggest complaint right now is that he's in the chair and wants to get back into bed. discussed in multiple iterations that since his stated goal is to get better, it's far and away in his best interest to get stronger -which also entails being out of bed as much as possible. vitals noted Awake and alert, fatigued, nad. breathing unlabored no accessory muscles good effort skin no rashes no pallor or icterus neuro no focal deficits shock - probably cardiogenic possibly related to acute on chronic HFpEF and acute on chronic hypoxic respiratory failure due to same - can't rule out sepsis/septic shock due to viral vs bacterial pneumonia - improving. continue current care, doing better. 05/05 discussed goals of care - clearly and on multiple angles does not want to be a hospice patient, would rather have aggressive care, and is willing to take meds/wear bipap/do therapy - today had to reiterate multiple times that being in the chair does constitute the basics of therapy. otherwise as above anticoagulated - will want to move off heparin probably to eliquis soon will need SNF/rehab Subjective 05/06/24: No acute events overnight. Patient resting comfortably in bedside chair upon arrival. Patient denies chest pain, dyspnea, fevers, or chills. Largely preoccupied by desire to urinate (despite active Esteves) and move bowels. Patient denies any pain or additional concerns. Unable to recall engagement in any home ADLs (ambulation, toileting, eating, etc.) Review of Systems Review of Systems: As per above Physical Exam Physical Exam: Gen: NAD HEENT: PERRLA, difficulty hearing Resp: Non-labored, reduced air entry, crackles in lower lobes bilaterally CVS: Normal S1/S2, no MRG Abdomen: Soft, nontender, nondistended, positive bowel sounds x4 Extremities: +2 distal pulses bilaterally, no cyanosis, +1 pitting edema bilaterally in LE Neuro: AO to self, place? situation? G/U: Esteves intact Results & Data Results & Data Vital Signs (Past 12 Hours) Vital Signs Temp Pulse Pulse Resp BP Pulse Ox O2 Del Method 05/06/24 02:27 37.0 C 98 H 19 129/89 93 Nasal Cannula 05/06/24 02:14 18 91 Nasal Cannula 05/06/24 02:10 90 22 95 05/06/24 00:35 99 H 24 94 05/05/24 22:43 36.4 C L 93 H 18 126/77 94 Nasal Cannula 05/05/24 22:00 Nasal Cannula 05/05/24 19:34 37.0 C 109 H 19 137/98 92 Nasal Cannula O2 Flow Rate FiO2 05/06/24 02:27 5 05/06/24 02:14 4 05/06/24 02:10 35 05/06/24 00:35 35 05/05/24 22:43 5 05/05/24 22:00 4 05/05/24 19:34 5 Resident Activity Tracking Resident Involvement: Resident Care Provided Care Provided: Adult Hospital Medicine"
[2024-05-06 07:25] LABS: Basophils # (auto) 0.05 K/uL (0.00-0.20); Basophils % (auto) 0.8 %; Eosinophils # (auto) 0.27 K/uL (0.00-0.50); Eosinophils % (auto) 4.6 %; Hematocrit (blood only) 40.6 % (42.0-52.0); Hemoglobin 12.2 g/dl (14.0-18.0); Immature Granulocytes # (auto) 0.05 K/uL (0.01-0.20); Immature Granulocytes % (auto) 0.8 %; Lymphocytes # (auto) 0.65 K/uL (1.20-3.40); Mean Corpuscular Hemoglobin 29.3 pg (25.0-34.0); Mean Corpuscular Volume 97.6 fL (80.0-100.0); Monocytes % (auto) 11.8 %; Neutrophils # (auto) 4.21 K/uL (1.40-6.50); Platelet Count 189 K/uL (130-400); RDW Coefficient of Variation 17.2 % (11.5-14.5); RDW Standard Deviation 61.4 fL (36.4-46.3); Red Blood Count 4.16 M/uL (4.70-6.10); White Blood Count 5.93 K/ul (4.8-10.8)
[2024-05-06 07:41] LABS: BUN Creatinine Ratio 19.3 (10-20); Calcium 8.7 mg/dl (8.6-10.3); Creatinine Clr Calc Pharmacy 94.1 ml/min; Potassium 3.8 mmol/L (3.5-5.1)
[2024-05-06 07:51] LABS: ANTI-Xa, UFH(UnfractionatedHep 0.36 IU/ml (0.3-0.7)
--- NOTE | 2024-05-06 08:47 | Pulmonology Progress Note ---
Date of Service May 06, 2024 Assessment & Plan (1) CHF exacerbation: (2) Acute and chronic respiratory failure with hypoxia: (3) Pleural effusion: (4) Respiratory failure: Plan --Acute on chronic hypoxic respiratory failure with bilateral pleural effusions Likely from acute on chronic HFpEF Usually on 2-2.5 L oxygen at home Continue with diuresis BiPAP nightly and as needed shortness of breath --RONNELL On BiPAP at home -- S/p VDRF Extubated 05/03/2024 -- History of A-fib On warfarin at home Plan: In/out: -1.1 L, urine output 1750. -5.5 L since coming to the hospital Continue with Bumex to 1 mg every 12 Recommend discharging the patient on Bumex p.o. 1 mg twice daily with either cardiology or nephrology follow-up Reasonable to transition patient's heparin drip to either DOAC or warfarin Case was discussed with RN at bedside No further recommendation from pulmonary perspective, will sign off Please call directly with any questions Please note the above document was generated using voice recognition software. It may contain grammatical, syntax or spelling errors.Any formal questions or concerns about the content, text or information contained within the body of this dictation should be directly addressed to the provider for clarification. Admission and Anticipated Discharge Date Admission Date: April 30, 2024 Subjective Patient seen and examined at bedside. No acute distress, no adverse events overnight. He was sitting on the chair. Saturating 94 over 95% on 3 L nasal cannula Overall he stated he is feeling better Breathing is improved Has been diuresing well Denies any nausea vomiting His hearing is better as he got the hearing aid now Review of Systems 2 Review of Systems: All systems reviewed & are unremarkable except as noted in Subjective Physical Exam 2 Physical Exam: Constitutional: No acute distress HEENT: PERRLA, EOMI, hard to hear Respiratory system: Decreased air entry bilaterally, minimal expiratory wheeze bilaterally, no rhonchi, positive crackles bilateral lower lobes CVS: S1-S2 positive, no murmurs or gallops Abdomen: Soft, nontender, nondistended, positive bowel sounds x4 Extremities: +2 pulses bilaterally radialis/ dorsalis pedis, no cyanosis, +1 pitting edema bilateral lower extremity Neuro: Awake and alert to self and place Psych: Normal mood and affect G/U: Positive Esteves Skin: no rashes, warm and dry Lymphatic: no cervical or axillary lymphadenopathy Results & Data Results & Data Vital Signs (Past 12 Hours) Vital Signs Temp Pulse Pulse Resp BP Pulse Ox O2 Del Method 05/06/24 07:19 36.6 C 107 H 20 123/91 97 Nasal Cannula 05/06/24 07:13 92 Nasal Cannula 05/06/24 03:11 20 93 BiPAP 05/06/24 02:27 37.0 C 98 H 19 129/89 93 Nasal Cannula 05/06/24 02:14 18 91 Nasal Cannula 05/06/24 02:10 90 22 95 05/06/24 00:35 99 H 24 94 05/05/24 22:43 36.4 C L 93 H 18 126/77 94 Nasal Cannula 05/05/24 22:00 Nasal Cannula O2 Flow Rate FiO2 05/06/24 07:19 05/06/24 07:13 6 05/06/24 03:11 35 05/06/24 02:27 5 05/06/24 02:14 4 05/06/24 02:10 35 05/06/24 00:35 35 05/05/24 22:43 5 05/05/24 22:00 4 Laboratory Results 05/06/24 07:08 05/06/24 07:08 PG Care Time/CCT Total # of Minutes Spent Total Time Spent with Patient: Total time spent is greater than 50% in coordination of care (as documented) at patient's floor/unit and/or counseling patient: Coding Level of Care Code 83866 SUB INP/OBS CARE 2/35MIN Diagnoses CHF exacerbation I50.9 Acute and chronic respiratory failure with hypoxia J96.21 Pleural effusion J90 Respiratory failure J96.90
[2024-05-06] MEDS: THIAMINE HCL 100 MG TAB PO SCH (08:54)
--- NOTE | 2024-05-06 15:28 | Billing Data ---
Date of Service May 06, 2024 Coding Level of Care Code 05517 SUB INP/OBS CARE MIN
[2024-05-06] MEDS: methylPREDNISolone 125 MG/2 ML VIAL IV STA (20:31)
[2024-05-06] MEDS: methylPREDNISolone 125 MG/2 ML VIAL ONE (20:32)
[2024-05-06 20:33] LABS: iSTAT Arterial Blood Gas HCO3 41 meg/L (19-24); iSTAT Arterial Blood Gas pCO2 79 mmHg (35-46); iSTAT Arterial Blood Gas pH 7.32 (7.35-7.45); iSTAT Arterial Blood Gas pO2 64 mmHg (80-95); iSTAT Carbon Dioxide 43 mmol/L (24-31); iSTAT Hematocrit 45 % (42-52); iSTAT Hemoglobin 15.3 g/dl (14.0-18.0); iSTAT Potassium 3.9 mmol/L (3.3-5.0); iSTAT Sodium 136 mmol/L (135-144)
[2024-05-06] MEDS: BUMETANIDE 1 MG in SYRINGE 0 ML IV ONE (20:33)
[2024-05-06] MEDS: ALBUT/IPRATROP 3MG/0.5MG NEB 3 ML VIAL NEB STA (21:23)
--- NOTE | 2024-05-07 00:57 | XRay Report ---
Exam(s): XR CXR 1 VIEW EXAM: XR Chest, 1 View CLINICAL HISTORY: Reason for exam: code purple. TECHNIQUE: Frontal view of the chest. COMPARISON: 05/05/24 FINDINGS: Limitations: Head projecting over the upper lung gaytan. Lungs: Persistent pulmonary vascular congestion and bilateral airspace opacities. Pleural space: Persistent small layering bilateral pleural effusions. No pneumothorax. Heart: Stable cardiomegaly. Bones/joints: No acute fracture. No dislocation. IMPRESSION: 1. Persistent pulmonary vascular congestion and bilateral airspace opacities. Overall, no significant change from prior. 2. Persistent small layering bilateral pleural effusions. Electronically signed by: Martin Escalera M.D. 05/07/24 00:56 AM
[2024-05-07 06:47] LABS: Basophils # (auto) 0.01 K/uL (0.00-0.20); Basophils % (auto) 0.3 %; Hematocrit (blood only) 39.2 % (42.0-52.0); Immature Granulocytes # (auto) 0.03 K/uL (0.01-0.20); Immature Granulocytes % (auto) 0.9 %; Lymphocytes # (auto) 0.29 K/uL (1.20-3.40); Mean Corpuscular Hemoglobin 30.1 pg (25.0-34.0); Mean Corpuscular Hgb Conc 30.6 g/dL (32.0-36.0); Mean Corpuscular Volume 98.2 fL (80.0-100.0); Mean Platelet Volume 11.7 fL (9.4-12.4); Monocytes # (auto) 0.12 K/uL (0.11-0.59); Monocytes % (auto) 3.7 %; Neutrophils # (auto) 2.76 K/uL (1.40-6.50); Neutrophils % (auto) 86.1 %; Platelet Count 173 K/uL (130-400); RDW Standard Deviation 61.4 fL (36.4-46.3); Red Blood Count 3.99 M/uL (4.70-6.10); White Blood Count 3.21 K/ul (4.8-10.8)
[2024-05-07 07:42] LABS: BUN Creatinine Ratio 23.3 (10-20); Calcium 8.6 mg/dl (8.6-10.3); Creatinine Clr Calc Pharmacy 90.8 ml/min; Potassium 3.9 mmol/L (3.5-5.1)
[2024-05-07 08:42] LABS: iSTAT Arterial Blood Gas HCO3 42 meg/L (19-24); iSTAT Arterial Blood Gas pCO2 66 mmHg (35-46); iSTAT Arterial Blood Gas pH 7.41 (7.35-7.45); iSTAT Arterial Blood Gas pO2 69 mmHg (80-95); iSTAT Carbon Dioxide 44 mmol/L (24-31); iSTAT Hematocrit 36 % (42-52); iSTAT Hemoglobin 12.2 g/dl (14.0-18.0); iSTAT Potassium 3.7 mmol/L (3.3-5.0); iSTAT Sodium 140 mmol/L (135-144)
[2024-05-07] MEDS: THIAMINE HCL 100 MG in SYRINGE 9 ML IV SCH (09:50)
--- NOTE | 2024-05-07 09:58 | Hospitalist Progress Note ---
"Date of Service May 07, 2024 Assessment & Plan (1) Metabolic encephalopathy: (2) Acute and chronic respiratory failure with hypoxia: (3) CHF exacerbation: (4) Respiratory failure: (5) Pleural effusion: (6) Hypoxia: Plan Pt is a 78 yo male with a PMHx of CAD, HFpEF, Afib on warfarin, T2DM w/peripheral neuropathy, OHS, chronic venous stasis, chronic hypoxic respiratory failure on chronic home O2 (2-2.5L) admitted after being found down at home for an undetermined amount of time. Acute Hypoxic Respiratory Failure | COVID-19, HFpEF Underlying RONNELL/OHS, BiPAP Non-compliant - Patient with COVID-19 and CHF Exacerbation on presentation - CT Chest: no PE, +ground glass opacities/septal thickening, R>L pleural effusion with associated compressive atelectasis - Multiple potential infectious sources on presentation (urine, lungs, etc.) Discontinue Ceftriaxone 05/01-05/07 - Normal baseline O2 use 2-2.5 L, inconsistent BiPAP use at home Patient hoping to get new mask for home which is smaller and more comfortable (like the one here) - Sputum culture, BCx and UCx negative. Completed Azithromycin - Pulmonary consultation: Continue Bumex 1 mg Q12h Can consider dose of Acetazolamide today or tomorrow for metabolic alkalosis - Currently on 2L NC (increased) If desaturations, obtain ABG, reposition patient and add BiPAP Did require intubation on admission Severe RONNELL/OHS, requires BiPAP when asleep Goals of Care 05/05: After extensive conversation, patient has confirmed Full Code status and is very eager to get stronger and more healthy. Despite being on hospice at time of admission, patient does NOT want to go back on hospice at this time. Previously documentation state that his son's significant other Wei is his caregiver and makes his medical decisions- however patient is competent and can make his own medical decisions- and he has expressed that he doesn't want to go back on hospice. Will anticipate eventually going to rehab after discharge to build up strength prior to returning home with family. Hypotension, resolved - in the setting of acute illness - no longer requiring pressors Altered mental status - Present on admission, most likely secondary to CO2 retention/metabolic encephalopathy - Continues to wax and wane - CT imaging negative for acute pathology - MRI; no acute or subacute stroke DMT2 - Hx of t2DM on metformin and Jardiance - held on admission - ISS - goal BG 140-180 VTE ppx: Heparin transition to Eliquis Diet: Regular, T2DM. Easy to chew. Dispo: PT/OT, Rehab Admission and Anticipated Discharge Date Admission Date: April 30, 2024 Supervising Physician Co-Signing Physician Notes I personally examined the patient and verified all rodarte points of history and exam, discussed case, and agree with decision making with Dr Blount was more somnolent and more hypercapnic - bipap adjusted - doing better now. wakes to voice and complaints loosely that the reason he had a hypercapnic decline was that he was in the chair too long yesterday and that fatigued him. wants bipap off so he can eat. vitals noted Awake and alert, awakens to voice, nad. breathing unlabored no accessory muscles good effort quiet but clear no r/r/w. cardio distant reg rate. skin no rashes no pallor or icterus neuro no focal deficits shock - probably cardiogenic possibly related to acute on chronic HFpEF and acute on chronic hypoxic respiratory failure due to same - can't rule out sepsis/septic shock due to viral vs bacterial pneumonia - improving. continue current care, doing better. 05/05 discussed goals of care - clearly and on multiple angles does not want to be a hospice patient, would rather have aggressive care, and is willing to take meds/wear bipap/do therapy in theory - the problem will be that over the last 2 days he is showing that the motivation to do what he needs to do in order to get stronger needs to be encouraged/found. hypercapnea last night did not appear to have specific provokation - but he does appear to have severe RONNELL/OHS - needs bipap at all times when asleep otherwise as above anticoagulated - switch to DOAC will need SNF/rehab; since he does not have palliative goals of care will need ongoing coaching/education/encouragement that in order to achieve his stated goals it will be more than simply a medical plan of taking pills and using bipap, but rather than it will also be largely borne out of him doing more/motivating more/working on strengthening Subjective 3/2: Patient resting in bed on BiPAP. Somnolent with minimal response to questions. Denies pain, dyspnea, or chest discomfort. Follows simple commands. Patient experienced a desaturation event overnight requiring code purple. Patient's ABG was abnormal and he required return to BiPAP, Solumedrol and additional Bumex. Repeat CXR at this time showed no change in pulmonary congestion or effusions. Review of Systems Review of Systems: As per above Physical Exam Physical Exam: Gen: NAD, BiPAP in place HEENT: PERRLA, difficulty hearing Resp: Non-labored, reduced air entry, crackles in bilateral lower lobes CVS: Normal S1/S2, no MRG Abdomen: Soft, nontender, nondistended, positive bowel sounds x4 Extremities: +2 distal pulses bilaterally, no cyanosis, +1 pitting edema bilaterally in LE Neuro: AO X 1, somnolent, arousable to voice G/U: Esteves intact draining clear yellow urine Results & Data Results & Data Vital Signs (Past 12 Hours) Vital Signs Temp Pulse Pulse Resp BP Pulse Ox O2 Del Method 05/07/24 08:55 BiPAP 05/07/24 07:44 75 22 95 05/07/24 07:00 36.8 C 81 20 111/70 96 BiPAP 05/07/24 02:27 36.7 C 82 18 118/72 95 BiPAP 05/07/24 00:00 101 H 05/06/24 23:19 100 H 18 93 05/06/24 22:44 37.0 C 101 H 19 135/89 94 BiPAP FiO2 05/07/24 08:55 05/07/24 07:44 35 05/07/24 07:00 05/07/24 02:27 05/07/24 00:00 05/06/24 23:19 40 05/06/24 22:44 Resident Activity Tracking Resident Involvement: Resident Care Provided Care Provided: Adult Hospital Medicine"
--- NOTE | 2024-05-07 10:59 | Billing Data ---
Date of Service May 07, 2024 Coding Level of Care Code 97218 SUB INP/OBS CARE
--- NOTE | 2024-05-07 11:34 | Pulmonology Progress Note ---
Date of Service May 07, 2024 Assessment & Plan (1) CHF exacerbation: (2) Acute and chronic respiratory failure with hypoxia: (3) Pleural effusion: (4) Respiratory failure: Plan --Acute on chronic hypoxic respiratory failure with bilateral pleural effusions Likely from acute on chronic HFpEF Usually on 2-2.5 L oxygen at home Continue with diuresis BiPAP nightly and as needed shortness of breath --RONNELL On BiPAP at home -- S/p VDRF Extubated 05/03/2024 -- History of A-fib On warfarin at home --Metabolic alkalosis Secondary to contraction alkalosis from diuretics as well as chronic hypercapnia Plan: In/out: -1 L, urine output 2351. -6.5 L since coming to the hospital Continue with Bumex to 1 mg every 12 For metabolic alkalosis it is reasonable to give 1 dose of acetazolamide 250 mg today or tomorrow. Recommend discharging the patient on Bumex p.o. 1 mg twice daily with either cardiology or nephrology follow-up Case was discussed with RN at bedside No further recommendation from pulmonary perspective, will sign off Please call directly with any questions Please note the above document was generated using voice recognition software. It may contain grammatical, syntax or spelling errors.Any formal questions or concerns about the content, text or information contained within the body of this dictation should be directly addressed to the provider for clarification. Admission and Anticipated Discharge Date Admission Date: April 30, 2024 Subjective Patient seen and examined at bedside. No acute distress, no adverse events overnight He was on 5 L oxime mask at the time of examination saturating 98%, I went down to 2 L. Overall he said he is feeling better Is diuresing well Denies any nausea vomiting Has been afebrile Appetite is still poor Review of Systems 2 Review of Systems: All systems reviewed & are unremarkable except as noted in Subjective Physical Exam 2 Physical Exam: Constitutional: No acute distress HEENT: PERRLA, EOMI, hard to hear Respiratory system: Decreased air entry bilaterally, minimal expiratory wheeze bilaterally, no rhonchi, positive crackles bilateral lower lobes CVS: S1-S2 positive, no murmurs or gallops Abdomen: Soft, nontender, nondistended, positive bowel sounds x4 Extremities: +2 pulses bilaterally radialis/ dorsalis pedis, no cyanosis, +1 pitting edema bilateral lower extremity Neuro: Awake and alert to self and place Psych: Normal mood and affect G/U: Positive Esteves Skin: no rashes, warm and dry Lymphatic: no cervical or axillary lymphadenopathy Results & Data Results & Data Vital Signs (Past 12 Hours) Vital Signs Temp Pulse Pulse Resp BP Pulse Ox O2 Del Method 05/07/24 10:59 36.6 C 91 H 20 137/98 93 Oxymask 05/07/24 08:55 BiPAP 05/07/24 08:00 75 05/07/24 07:44 75 22 95 05/07/24 07:00 36.8 C 81 20 111/70 96 BiPAP 05/07/24 02:27 36.7 C 82 18 118/72 95 BiPAP 05/07/24 00:00 101 H O2 Flow Rate FiO2 05/07/24 10:59 2 05/07/24 08:55 05/07/24 08:00 05/07/24 07:44 35 05/07/24 07:00 05/07/24 02:27 05/07/24 00:00 Laboratory Results 05/07/24 06:24 05/07/24 06:24 PG Care Time/CCT Total # of Minutes Spent Total Time Spent with Patient: Total time spent is greater than 50% in coordination of care (as documented) at patient's floor/unit and/or counseling patient: Coding Level of Care Code 74750 SUB INP/OBS CARE 2/35MIN Diagnoses CHF exacerbation I50.9 Acute and chronic respiratory failure with hypoxia J96.21 Pleural effusion J90 Respiratory failure J96.90
[2024-05-07] MEDS: APIXABAN 5 MG TABLET PO SCH (19:26)
[2024-05-08 06:07] LABS: Basophils # (auto) 0.05 K/uL (0.00-0.20); Basophils % (auto) 0.8 %; Eosinophils # (auto) 0.11 K/uL (0.00-0.50); Eosinophils % (auto) 1.8 %; Hemoglobin 11.7 g/dl (14.0-18.0); Immature Granulocytes % (auto) 1.7 %; Lymphocytes # (auto) 0.68 K/uL (1.20-3.40); Lymphocytes % (auto) 11.4 %; Mean Corpuscular Hemoglobin 29.7 pg (25.0-34.0); Mean Platelet Volume 11.4 fL (9.4-12.4); Monocytes # (auto) 0.64 K/uL (0.11-0.59); Monocytes % (auto) 10.7 %; Neutrophils # (auto) 4.39 K/uL (1.40-6.50); Neutrophils % (auto) 73.6 %; Platelet Count 179 K/uL (130-400); RDW Coefficient of Variation 17.3 % (11.5-14.5); RDW Standard Deviation 62.1 fL (36.4-46.3); Red Blood Count 3.94 M/uL (4.70-6.10); White Blood Count 5.97 K/ul (4.8-10.8)
[2024-05-08 06:27] LABS: BUN Creatinine Ratio 27.9 (10-20); Creatinine Clr Calc Pharmacy 89.1 ml/min; Potassium 3.7 mmol/L (3.5-5.1)
--- NOTE | 2024-05-08 07:18 | Hospitalist Progress Note ---
"Date of Service May 08, 2024 Assessment & Plan (1) Metabolic encephalopathy: (2) Acute and chronic respiratory failure with hypoxia: (3) CHF exacerbation: (4) Respiratory failure: (5) Pleural effusion: (6) Hypoxia: Plan Pt is a 78 yo male with a PMHx of CAD, HFpEF, Afib on warfarin, T2DM w/peripheral neuropathy, OHS, chronic venous stasis, chronic hypoxic respiratory failure on chronic home O2 (2-2.5L) admitted after being found down at home for an undetermined amount of time. Acute Hypoxic Respiratory Failure | Santa OC43 | HFpEF Underlying RONNELL/OHS, BiPAP Non-compliant - Patient with COVID-19 and CHF Exacerbation on presentation - CT Chest: no PE, +ground glass opacities/septal thickening, R>L pleural effusion with associated compressive atelectasis - Multiple potential infectious sources on presentation (urine, lungs, etc.) Continue 7 day course of Ceftriaxone 05/01-05/08 - Normal baseline O2 use 2-2.5 L, inconsistent BiPAP use at home was extubated on 05/03/24 Patient hoping to get new mask for home which is smaller and more comfortable (like the one here) - Sputum culture, BCx and UCx negative. Completed Azithromycin - Pulmonary consultation: Continue Bumex 1 mg Q12h - Currently on BiPAP but weans to 4L oxymask when awake --- Requiring BiPAP use day/night Goals of Care 05/05: After extensive conversation, patient has confirmed Full Code status and is very eager to get stronger and more healthy. Despite being on hospice at time of admission, patient does NOT want to go back on hospice at this time. Previously documentation state that his son's significant other Wei is his caregiver and makes his medical decisions- however patient is competent and can make his own medical decisions- and he has expressed that he doesn't want to go back on hospice. Will anticipate eventually going to rehab after discharge to build up strength prior to returning home with family. Hypotension, resolved - in the setting of acute illness Altered mental status - Present on admission, most likely secondary to CO2 retention/metabolic encephalopathy - Continues to wax and wane - CT imaging negative for acute pathology - MRI; no acute or subacute stroke DMT2 - Hx of t2DM on metformin and Jardiance - held on admission - ISS - goal BG 140-180 VTE ppx: Heparin Diet: Regular, T2DM. Easy to chew. Dispo: PT/O (deferred eval today due to pt being on BiPAP), given he is requiring full assistance, would likely need rehab Admission and Anticipated Discharge Date Admission Date: April 30, 2024 Subjective No acute events overnight He received duoneb earlier and then was placed on BiPAP while he slept He offered no other complaints Review of Systems Review of Systems: Comprehensive ROS neg Physical Exam Physical Exam: Gen: NAD, currently no complaints HEENT: NC/AT, anicteric, MMM, presbycusis Lungs: coarse breath sounds CVS: s1s2nl, RRR Abd: protuberant, normal bowel sounds, soft Ext: no edema Results & Data Results & Data Vital Signs (Past 12 Hours) Vital Signs Temp Pulse Pulse Resp BP Pulse Ox O2 Del Method 05/08/24 07:00 36.6 C 91 H 18 132/90 96 Nasal Cannula 05/08/24 03:59 80 14 94 05/08/24 02:33 36.8 C 75 18 126/82 93 BiPAP 05/08/24 00:04 119/84 05/07/24 23:42 74 16 96 05/07/24 22:00 15 93 BiPAP 05/07/24 21:00 80 05/07/24 20:06 Nasal Cannula 05/07/24 19:22 36.3 C L 92 H 22 124/77 95 High Flow Nasal Cannula O2 Flow Rate FiO2 05/08/24 07:00 4 05/08/24 03:59 35 05/08/24 02:33 05/08/24 00:04 05/07/24 23:42 35 05/07/24 22:00 35 05/07/24 21:00 05/07/24 20:06 2 05/07/24 19:22 6 PG Care Time/CCT Total # of Minutes Spent Total Time Spent with Patient: Total time spent is greater than 50% in coordination of care (as documented) at patient's floor/unit and/or counseling patient: Coding Level of Care Code 03795 SUB INP/OBS CARE 2/35MIN Diagnoses Metabolic encephalopathy G93.41 Acute and chronic respiratory failure with hypoxia J96.21 CHF exacerbation I50.9 Respiratory failure J96.90 Pleural effusion J90 Hypoxia R09.02"
[2024-05-08] MEDS: ALBUT/IPRATROP 3MG/0.5MG NEB 3 ML VIAL NEB PRN (10:17)
[2024-05-08] MEDS: acetaZOLAMIDE 250 MG in SYRINGE 0 ML IV ONE (18:27)
[2024-05-09 09:53] LABS: BUN Creatinine Ratio 25.6 (10-20); Calcium 9.6 mg/dl (8.6-10.3); Creatinine Clr Calc Pharmacy 85.3 ml/min; Magnesium 2.2 mg/dl (1.7-2.4); Phosphorus 2.8 mg/dl (2.5-4.9); Potassium 4.5 mmol/L (3.5-5.1)
[2024-05-09 10:05] LABS: Hematocrit (blood only) 43.2 % (42.0-52.0); Mean Corpuscular Hemoglobin 30.2 pg (25.0-34.0); Mean Corpuscular Hgb Conc 30.1 g/dL (32.0-36.0); Mean Corpuscular Volume 100.2 fL (80.0-100.0); Mean Platelet Volume 11.4 fL (9.4-12.4); Platelet Count 199 K/uL (130-400); RDW Coefficient of Variation 17.3 % (11.5-14.5); RDW Standard Deviation 63.8 fL (36.4-46.3); Red Blood Count 4.31 M/uL (4.70-6.10)
[2024-05-09 10:30] LABS: White Blood Count 6.25 K/ul (4.8-10.8)
[2024-05-09 10:48] LABS: iSTAT Arterial Blood Gas HCO3 42 meg/L (19-24); iSTAT Arterial Blood Gas pCO2 82 mmHg (35-46); iSTAT Arterial Blood Gas pH 7.32 (7.35-7.45); iSTAT Arterial Blood Gas pO2 62 mmHg (80-95); iSTAT Carbon Dioxide 44 mmol/L (24-31); iSTAT Hematocrit 45 % (42-52); iSTAT Hemoglobin 15.3 g/dl (14.0-18.0); iSTAT Potassium 3.4 mmol/L (3.3-5.0); iSTAT Sodium 141 mmol/L (135-144)
[2024-05-09 10:58] LABS: Basophils # (auto) 0.04 K/uL (0.00-0.20); Basophils % (auto) 0.6 %; Eosinophils % (auto) 3.2 %; Immature Granulocytes # (auto) 0.39 K/uL (0.01-0.20); Immature Granulocytes % (auto) 6.2 %; Lymphocytes # (auto) 0.56 K/uL (1.20-3.40); Monocytes # (auto) 0.53 K/uL (0.11-0.59); Monocytes % (auto) 8.5 %; Neutrophils # (auto) 4.53 K/uL (1.40-6.50); Neutrophils % (auto) 72.5 %; Ovalocytes 1+
--- NOTE | 2024-05-09 17:02 | Hospitalist Progress Note ---
"Date of Service May 09, 2024 Assessment & Plan (1) Metabolic encephalopathy: (2) Acute and chronic respiratory failure with hypoxia: (3) CHF exacerbation: (4) Respiratory failure: (5) Pleural effusion: (6) Hypoxia: Plan 78 years old male with PMH of FULL CODE @ home, obesity with BMI 35.8 (height 177.8 cm; weight 113.3 kg), RONNELL non-compliant with BIPAP, obesity hypoventilation syndrome with pCO2 >45 mm Hg, chronic macrocytic, hypochromic an emia with baseline Hb range unknown, CAD, paroxysmal AFIB on warfarin, T2DM with HbA1c 6.1% (05/01/2024, 5:29am), diabetic peripheral neuropathy, chronic venous stasis, chronic hypoxic respiratory failure on chronic home O2 (2-2.5 liters/minute via nasal cannula), who was admitted to [facility] on 04/30/2024, after being found down at home for an undetermined amount of time. The patient was admitted to the inpatient hospitalist service @ [facility] on 04/30/2024 with the following diagnosis: 1. Acute (non-COVID)-on-chronic hypoxic respiratory failure. 2. Acute toxic metabolic encephalopathy. Acute Hypoxic Respiratory Failure | [place] OC43 | HFpEF Underlying RONNELL/OHS, BiPAP Non-compliant - Patient with COVID-19 and CHF Exacerbation on presentation - CT Chest: no PE, +ground glass opacities/septal thickening, R>L pleural effusion with associated compressive atelectasis - Multiple potential infectious sources on presentation (urine, lungs, etc.) s/p 7 day course of Ceftriaxone 05/01/2024 - 05/08/2024 - Normal baseline O2 use 2-2.5 L, inconsistent BiPAP use at home was extubated on 05/03/2024 Patient hoping to get new mask for home which is smaller and more comfortable (like the one here) - Sputum culture, BCx and UCx negative. Completed Azithromycin - Pulmonary consultation: Continue Bumex 1 mg Q12h - Currently on BiPAP but weans to 5-7 liters per minute O2 via nasal cannula --- Requiring BiPAP use day/night Goals of Care 05/05: After extensive conversation, patient has confirmed Full Code status and is very eager to get stronger and more healthy. Despite being on hospice at time of admission, patient does NOT want to go back on hospice at this time. Previously documentation state that his son's significant other Wei is his caregiver and makes his medical decisions- however patient is competent and can make his own medical decisions- and he has expressed that he doesn't want to go back on hospice. Will anticipate eventually going to rehab after discharge to build up strength prior to returning home with family. Hypotension, RESOLVED - in the setting of acute illness Altered mental status, RESOLVED - Present on admission, most likely secondary to CO2 retention/metabolic encephalopathy - Continues to wax and wane - CT imaging negative for acute pathology - MRI; no acute or subacute stroke DMT2 with HbA1c 6.1% (05/01/2024, 5:29am) - Hx of t2DM on metformin and Jardiance - held on admission - ISS - goal BG 140-180 VTE ppx: Heparin Diet: Regular, T2DM. Easy to chew. Dispo: PT/O (deferred eval today due to pt being on BiPAP), given he is requiring full assistance, would likely need rehab NOTE: Prior progress notes from Hospitalist Service cite CHF as an integral part of patient's past medical history. However, patient's sole TTE (05/01/2024, 10:43pm TTE) reveals normal LVEF 60-65%, normal LV wall thickness, normal RV systolic function, mildly dilated LA. Hence, I cannot confirm that this patient suffers from CHF. Admission and Anticipated Discharge Date Admission Date: April 30, 2024 Subjective No acute events overnight He received duoneb earlier and then was placed on BiPAP while he slept He offered no other complaints Review of Systems Constitutional: Positive for SOB/BANEGAS and dry cough in the setting of acute influenza A PNA. Negative for antecedent/coincident fevers, chills, diaphoresis, cough, wheeze, sore throat, hemoptysis, chest pains, palpitations, pleurisy, nausea, vomiting, diarrhea, abdominal pain, pelvic pain, hematemesis, hematochezia, melena, hematuria, dysuria, frequency, urgency, headaches, dizziness, lightheadedness, visual changes, hearing changes, weakness, falls, syncope, trauma, travel history, sick contacts, or food/drug ingestions novel or new. All other review of systems are reported as negative by the patient on 05/09/2024. Physical Exam Constitutional: General: Comfortable, coherent, cooperative. Wide awake and alert. Not confused, lethargic, or obtunded. Patient speaks in complete, fluent, and articulate sentences without pause, interruption, cough, or wheeze. HEENT: Normocephalic, atraumatic. Pupils equally round and reactive to light. Extra-ocular muscles intact. No nystagmus, gaze paresis, anisocoria, miosis, mydriasis, hyphema, scleral injection, conjunctivitis, or pterygium. No rhinorrhea or otorrhea. No pharyngeal discharge or erythema. Neck: Supple, no stridor, bruit, goiter, hepatojugular reflux. Jugular venous pressure is estimated to be 8 cm above the sternal angle of Attila, which is estimated to be 5 cm above the level of the right atrium. Lymph: No anterior/posterior cervical, supraclavicular/infraclavicular, axillary, epitrochlear, or inguinal adenopathy. Chest: Symmetric rise and fall with respirations. Lungs: Coarse breath sounds bilaterally. No audible expiratory wheeze, egophony, pectoriloquy, increase in tactile fremitus, or flatness/dullness to percussion at the bases. Heart: RRR, S1 and S2 noted. No S3 or S4 summation gallop noted. No tripartite friction rub. Grade II/ early systolic murmur @ LLSB without radiation to the carotids, axilla, or back, and which remains invariant in regards to the respiratory cycle. Abdomen: Soft, non-tender, non-distended. No rebound, guarding, Bernabe's sign, or organomegaly. Bowel sounds sounds auscultated in all 4 quadrants. Extremities: No clubbing, cyanosis, or edema. 2+ pedal pulses bilaterally. Skin: No decubitus ulcer, exanthem, or enanthem. Neurology: Alert and oriented to person, place, time, and situation. DTR+ and symmetric. 5/5 motor strength in all 4 extremities, both proximally and distally. No pronator drift. No facial droop. Urology: + irvin catheter with 800 cc of clear yellow urine. No urethral discharge. Psychiatry: No suicidal ideation. No homicidal ideation. Results & Data Results & Data Vital Signs (Past 12 Hours) Vital Signs Temp Pulse Pulse Resp BP Pulse Ox O2 Del Method 05/09/24 15:03 36.7 C 82 18 117/79 96 BiPAP 05/09/24 13:58 90 05/09/24 11:09 36.7 C 102 H 18 124/78 96 BiPAP 05/09/24 10:51 120 H 21 95 05/09/24 08:00 84 05/09/24 07:53 36.8 C 98 H 18 153/103 H 96 High Flow Nasal Cannula 05/09/24 07:38 High Flow Nasal Cannula O2 Flow Rate FiO2 05/09/24 15:03 05/09/24 13:58 05/09/24 11:09 05/09/24 10:51 40 05/09/24 08:00 05/09/24 07:53 7 05/09/24 07:38 6 Laboratory Results ABG 7.32 / 82 / 62 / 42 / 88% O2 sat on BIPAP with FIO2 = 0.40, I / E, 20 / 6 (05/09/2024, 10:31am). Na 145, K 4.5, BUN 23, creatinine 0.9, CO2 44, glucose 104 (05/10/2023, 9:09am). Hb 13.0, MCV 100.2, MCHC 30.1 (05/09/2024, 9:09am). Coronavirus OC43+ (04/30/2024, 8:58pm). PG Care Time/CCT Total # of Minutes Spent Total Time Spent with Patient: Total time spent is greater than 50% in coordination of care (as documented) at patient's floor/unit and/or counseling patient: Coding Level of Care Code 39016 SUB INP/OBS CARE 2/35MIN Diagnoses Metabolic encephalopathy G93.41 Acute and chronic respiratory failure with hypoxia J96.21 CHF exacerbation I50.9 Respiratory failure J96.90 Pleural effusion J90 Hypoxia R09.02"
[2024-05-10 06:18] LABS: Base Excess VBG 16.5 mEq/L; HCO3 VBG 44 mmol/L; PCO2 VBG 63 mmHg (38-50); PO2 VBG 55 mmHg; pH VBG 7.45 (7.36-7.41)
[2024-05-10 06:40] LABS: BUN Creatinine Ratio 29.5 (10-20); Calcium 9.1 mg/dl (8.6-10.3); Creatinine Clr Calc Pharmacy 98.5 ml/min; Potassium 3.4 mmol/L (3.5-5.1)
[2024-05-10] MEDS: POTASSIUM CHLORIDE CRTAB 20 MEQ TABCR PO SCH (08:37)
--- NOTE | 2024-05-10 16:19 | Hospitalist Progress Note ---
"Date of Service May 10, 2024 Assessment & Plan (1) Metabolic encephalopathy: (2) Acute and chronic respiratory failure with hypoxia: (3) CHF exacerbation: (4) Respiratory failure: (5) Pleural effusion: (6) Hypoxia: Plan 78 years old male with PMH of FULL CODE @ home, obesity with BMI 35.8 (height 177.8 cm; weight 113.3 kg), RONNELL non-compliant with BIPAP, obesity hypoventilation syndrome with pCO2 >45 mm Hg, chronic macrocytic, hypochromic an emia with baseline Hb range unknown, CAD, paroxysmal AFIB on warfarin, T2DM with HbA1c 6.1% (05/01/2024, 5:29am), diabetic peripheral neuropathy, chronic venous stasis, chronic hypoxic respiratory failure on chronic home O2 (2-2.5 liters/minute via nasal cannula), who was admitted to [facility] on 04/30/2024, after being found down at home for an undetermined amount of time. The patient was admitted to the inpatient hospitalist service @ [facility] on 04/30/2024 with the following diagnosis: 1. Acute (non-COVID)-on-chronic hypoxic respiratory failure. 2. Acute toxic metabolic encephalopathy. Acute Hypoxic Respiratory Failure | [place] OC43 Underlying RONNELL/OHS, BiPAP Non-compliant - Patient with acute non-COVID PNA - CT Chest: no PE, +ground glass opacities/septal thickening, R>L pleural effusion with associated compressive atelectasis - Multiple potential infectious sources on presentation (urine, lungs, etc.) s/p 7 day course of Ceftriaxone 05/01/2024 - 05/08/2024 - Normal baseline O2 use 2-2.5 L, inconsistent BiPAP use at home was extubated on 05/03/2024 Patient hoping to get new mask for home which is smaller and more comfortable (like the one here) - Sputum culture, BCx and UCx negative. Completed Azithromycin - Pulmonary consultation: Continue Bumex 1 mg Q12h - Currently on BiPAP but weans to 9 liters per minute O2 via nasal cannula --- Requiring BiPAP use day/night Goals of Care 05/05: After extensive conversation, patient confirmed FULL CODE status 05/10: Patient consistently desaturates to the low 80s when taking off his supplemental oxygen to eat/drink; patient will most probably not be able to wean off supplemental oxygen in the near future; patient remains too weak to stand up from a seated position in bed, let alone pivot from a standing position, or even take 1 step after standing up. The lack of clinical improvement in patient's respiratory condition is very unreassuring that patient can be discharged to any outside SNF for meaningful improvement in his bedbound state. I subsequently spoke with the patient regarding his wishes in terms of being resuscitated (e.g., FULL CODE) or not being resuscitated (e.g., DNR/DNI), and patient deferred to his son (Guido Cortez, ) and his son's (Wei Cortez, ). I subsequently spoke with Mr. Guido Cortez today, 05/10/2024, and he deferred to his Wei. I subsequently spoke with Ms. Wei Cortez today, 05/10/2024, and she concurred that patient should be discharged back to his home with DNR/DNI code status, and that home hospice services resume in the next 1-2 days. Ms. Wei Cortez further stated that the reason for Mr. Guido Cortez's reticence about affirming DNR/DNI code status, followed by D/C back to patient's home with resumption of home hospice services is because Mr. Guido Crotez's mother 3 years ago, and Mr. Guido Cortez is still having a hard time accepting his mother's 3 years ago, and hence, Mr. Guido Cortez is having a hard time with having the patient's code status be revised from FULL CODE to DNR/DNI, followed by discharge back to his home with resumption of home hospice services in the next 1-2 days. To this end, Ms. Wei Cortez stated that she will arrive back home this afternoon, and will speak with Mr. Guido Cortez at that time regarding patient's code status be revised from FULL CODE to DNR/DNI, followed by discharge back to his home with resumption of home hospice services in the next 1-2 days, and that she would call me back later this afternoon / evening regarding her conversation with Mr. Guido Cortez. Hypotension, RESOLVED - in the setting of acute illness Altered mental status, RESOLVED - Present on admission, most likely secondary to CO2 retention/metabolic encephalopathy - Continues to wax and wane - CT imaging negative for acute pathology - MRI; no acute or subacute stroke DMT2 with HbA1c 6.1% (05/01/2024, 5:29am) - Hx of t2DM on metformin and Jardiance - held on admission - ISS - goal BG 140-180 VTE ppx: Heparin Diet: Regular, T2DM. Easy to chew. Dispo: PT/O (deferred eval today due to pt being on 9 liters/minute O2 via nasal cannula) NOTE: Prior progress notes from Hospitalist Service cite CHF as an integral part of patient's past medical history. However, patient's sole TTE (05/01/2024, 10:43pm TTE) reveals normal LVEF 60-65%, normal LV wall thickness, normal RV systolic function, mildly dilated LA. Hence, I cannot affirm / confirm that this patient suffers from CHF. Admission and Anticipated Discharge Date Admission Date: April 30, 2024 Subjective No acute events overnight He received duoneb earlier and then was placed on BiPAP while he slept He offered no other complaints Review of Systems Constitutional: Positive for SOB/BANEGAS and dry cough in the setting of acute influenza A PNA. Negative for antecedent/coincident fevers, chills, diaphoresis, cough, wheeze, sore throat, hemoptysis, chest pains, palpitations, pleurisy, nausea, vomiting, diarrhea, abdominal pain, pelvic pain, hematemesis, hematochezia, melena, hematuria, dysuria, frequency, urgency, headaches, dizziness, lightheadedness, visual changes, hearing changes, weakness, falls, syncope, trauma, travel history, sick contacts, or food/drug ingestions novel or new. All other review of systems are reported as negative by the patient on 05/09/2024. Physical Exam Constitutional: General: Comfortable, coherent, cooperative. Wide awake and alert. Not confused, lethargic, or obtunded. Patient speaks in complete, fluent, and articulate sentences without pause, interruption, cough, or wheeze. HEENT: Normocephalic, atraumatic. Pupils equally round and reactive to light. Extra-ocular muscles intact. No nystagmus, gaze paresis, anisocoria, miosis, mydriasis, hyphema, scleral injection, conjunctivitis, or pterygium. No rhinorrhea or otorrhea. No pharyngeal discharge or erythema. Neck: Supple, no stridor, bruit, goiter, hepatojugular reflux. Jugular venous pressure is estimated to be 8 cm above the sternal angle of Attila, which is estimated to be 5 cm above the level of the right atrium. Lymph: No anterior/posterior cervical, supraclavicular/infraclavicular, axillary, epitrochlear, or inguinal adenopathy. Chest: Symmetric rise and fall with respirations. Lungs: Coarse breath sounds bilaterally. No audible expiratory wheeze, egophony, pectoriloquy, increase in tactile fremitus, or flatness/dullness to percussion at the bases. Heart: RRR, S1 and S2 noted. No S3 or S4 summation gallop noted. No tripartite friction rub. Grade II/ early systolic murmur @ LLSB without radiation to the carotids, axilla, or back, and which remains invariant in regards to the respiratory cycle. Abdomen: Soft, non-tender, non-distended. No rebound, guarding, Bernabe's sign, or organomegaly. Bowel sounds sounds auscultated in all 4 quadrants. Extremities: No clubbing, cyanosis, or edema. 2+ pedal pulses bilaterally. Skin: No decubitus ulcer, exanthem, or enanthem. Neurology: Alert and oriented to person, place, time, and situation. DTR+ and symmetric. 5/5 motor strength in all 4 extremities, both proximally and distally. No pronator drift. No facial droop. Urology: + irvin catheter with 600 cc of clear yellow urine. No urethral discharge. Psychiatry: No suicidal ideation. No homicidal ideation. Results & Data Results & Data Vital Signs (Past 12 Hours) Vital Signs Temp Pulse Pulse Resp BP Pulse Ox O2 Del Method 05/10/24 15:11 85 26 H 90 05/10/24 15:02 36.4 C L 101 H 24 155/102 H 05/10/24 11:17 36.4 C L 82 21 130/89 96 BiPAP 05/10/24 09:20 BiPAP, High Flow Nasal Cannula 05/10/24 07:20 37.1 C 65 14 99/58 L 98 BiPAP O2 Flow Rate FiO2 03/05/25 15:11 100 05/10/24 15:02 05/10/24 11:17 05/10/24 09:20 5 05/10/24 07:20 Laboratory Results ABG 7.32 / 82 / 62 / 42 / 88% O2 sat on BIPAP with FIO2 = 0.40, I / E, 20 / 6 (05/09/2024, 10:31am). Na 145, K 4.5, BUN 23, creatinine 0.9, CO2 44, glucose 104 (05/10/2023, 9:09am). Hb 13.0, MCV 100.2, MCHC 30.1 (05/09/2024, 9:09am). Coronavirus OC43+ (04/30/2024, 8:58pm). PG Care Time/CCT Total # of Minutes Spent Total Time Spent with Patient: Total time spent is greater than 50% in coordination of care (as documented) at patient's floor/unit and/or counseling patient: Coding Level of Care Code 33065 SUB INP/OBS CARE 2/35MIN Diagnoses Metabolic encephalopathy G93.41 Acute and chronic respiratory failure with hypoxia J96.21 CHF exacerbation I50.9 Respiratory failure J96.90 Pleural effusion J90 Hypoxia R09.02"
[2024-05-11 06:51] LABS: BUN Creatinine Ratio 32.9 (10-20); Calcium 9.1 mg/dl (8.6-10.3); Creatinine Clr Calc Pharmacy 100.1 ml/min; Potassium 3.6 mmol/L (3.5-5.1)
--- NOTE | 2024-05-11 12:21 | Hospitalist Progress Note ---
"Date of Service May 11, 2024 Assessment & Plan (1) Metabolic encephalopathy: (2) Acute and chronic respiratory failure with hypoxia: (3) CHF exacerbation: (4) Respiratory failure: (5) Pleural effusion: (6) Hypoxia: Plan 78 years old male with PMH of FULL CODE @ home, obesity with BMI 35.8 (height 177.8 cm; weight 113.3 kg), RONNELL non-compliant with BIPAP, obesity hypoventilation syndrome with pCO2 >45 mm Hg, chronic macrocytic, hypochromic an emia with baseline Hb range unknown, CAD, paroxysmal AFIB on warfarin, T2DM with HbA1c 6.1% (05/01/2024, 5:29am), diabetic peripheral neuropathy, chronic venous stasis, chronic hypoxic respiratory failure on chronic home O2 (2-2.5 liters/minute via nasal cannula), who was admitted to [facility] on 04/30/2024, after being found down at home for an undetermined amount of time. The patient was admitted to the inpatient hospitalist service @ [facility] on 04/30/2024 with the following diagnosis: 1. Acute (non-COVID)-on-chronic hypoxic respiratory failure. 2. Acute toxic metabolic encephalopathy. Acute Hypoxic Respiratory Failure | [place] OC43 Underlying RONNELL/OHS, BiPAP Non-compliant - Patient with acute non-COVID PNA - CT Chest: no PE, +ground glass opacities/septal thickening, R>L pleural effusion with associated compressive atelectasis - Multiple potential infectious sources on presentation (urine, lungs, etc.) s/p 7 day course of Ceftriaxone 05/01/2024 - 05/08/2024 - Normal baseline O2 use 2-2.5 L, inconsistent BiPAP use at home was extubated on 05/03/2024 Patient hoping to get new mask for home which is smaller and more comfortable (like the one here) - Sputum culture, BCx and UCx negative. Completed Azithromycin - Pulmonary consultation: Continue Bumex 1 mg Q12h - Currently on BiPAP but weans to 9 liters per minute O2 via nasal cannula --- Requiring BiPAP use day/night Goals of Care 05/05: After extensive conversation, patient confirmed FULL CODE status 05/10: Patient consistently desaturates to the low 80s when taking off his supplemental oxygen to eat/drink; patient will most probably not be able to wean off supplemental oxygen in the near future; patient remains too weak to stand up from a seated position in bed, let alone pivot from a standing position, or even take 1 step after standing up. The lack of clinical improvement in patient's respiratory condition is very unreassuring that patient can be discharged to any outside SNF for meaningful improvement in his bedbound state. I subsequently spoke with the patient regarding his wishes in terms of being resuscitated (e.g., FULL CODE) or not being resuscitated (e.g., DNR/DNI), and patient deferred to his son (Guido Cortez, ) and his son's (Wei Cortez, ). I subsequently spoke with Mr. Guido Cortez on 05/10/2024, and he deferred to his Wei. I subsequently spoke with Ms. Wei Cortez on 05/10/2024, and she concurred that patient should be discharged back to his home with DNR/DNI code status, and that home hospice services resume in the next 1-2 days. Ms. Wei Cortez further stated that the reason for Mr. Guido Cortez's reticence about affirming DNR/DNI code status, followed by D/C back to patient's home with resumption of home hospice services is because Mr. Guido Cortez's mother 3 years ago, and Mr. Guido Cortez is still having a hard time accepting his mother's 3 years ago, and hence, Mr. Guido Cortez is having a hard time with having the patient's code status be revised from FULL CODE to DNR/DNI, followed by discharge back to his home with resumption of home hospice services in the next 1-2 days. To this end, Ms. Wei Cortez stated that she would arrive back home later in the afternoon hours of 05/10/2024, and would speak with Mr. Guido Cortez at that time regarding patient's code status be revised from FULL CODE to DNR/DNI, followed by discharge back to his home with resumption of home hospice services in the next 1-2 days, and that she would call me back later in the afternoon / evening hours of 05/10/2024 regarding her conversation with Mr. Guido Cortez. 05/11: I did not speak directly with Ms. Wei Cortez, and instead, I spoke with [facility] Counter Waiter Ms. Pushpa Lehman, who did speak on the phone with Ms. Wei Cortez earlier in the morning hours of 05/11/2024, and who affirmed that the patient will be discharged back to his home with home hospice services. To coordinate such a discharge, Ms. Lehman recommended that patient be discharged on 05/12/2024 to ensure that all equipment/devices needed for patient to resume his home hospice services in a timely manner once patient arrives back to his home. I concur 100% with Ms. Lehman. Hence, patient will remain in [facility] Tele bed #[id number] today, 05/11/2024, on CPAP support. Hypotension, RESOLVED - in the setting of acute illness Altered mental status, RESOLVED - Present on admission, most likely secondary to CO2 retention/metabolic encephalopathy - Continues to wax and wane - CT imaging negative for acute pathology - MRI; no acute or subacute stroke DMT2 with HbA1c 6.1% (05/01/2024, 5:29am) - Hx of t2DM on metformin and Jardiance - held on admission - ISS - goal BG 140-180 VTE ppx: Heparin Diet: Regular, T2DM. Easy to chew. Dispo: PT/O (deferred eval today due to pt being on 9 liters/minute O2 via nasal cannula) NOTE: Prior progress notes from Hospitalist Service cite CHF as an integral part of patient's past medical history. However, patient's sole TTE (05/01/2024 , 10:43pm TTE) reveals normal LVEF 60-65%, normal LV wall thickness, normal RV systolic function, mildly dilated LA. Hence, I cannot affirm / confirm that this patient suffers from CHF. Admission and Anticipated Discharge Date Admission Date: April 30, 2024 Subjective No acute events overnight He received duoneb earlier and then was placed on BiPAP while he slept He offered no other complaints Review of Systems Review of Systems: Comprehensive ROS neg Constitutional: Positive for SOB/BANEGAS and dry cough in the setting of acute non-COVID pneumonia (e.g., coronavirus OC43+, 04/30/2024, 8:58pm respiratory pathogen PCR panel testing). Negative for antecedent/coincident fevers, chills, diaphoresis, cough, wheeze, sore throat, hemoptysis, chest pains, palpitations, pleurisy, nausea, vomiting, diarrhea, abdominal pain, pelvic pain, hematemesis, hematochezia, melena, hematuria, dysuria, frequency, urgency, headaches, dizziness, lightheadedness, visual changes, hearing changes, weakness, falls, syncope, trauma, travel history, sick contacts, or food/drug ingestions novel or new. All other review of systems are reported as negative by the patient on 05/11/2024. Physical Exam Constitutional: General: Comfortable, coherent, cooperative. Wide awake and alert. Not confused, lethargic, or obtunded. Patient speaks in complete, fluent, and articulate sentences without pause, interruption, cough, or wheeze. HEENT: Normocephalic, atraumatic. Pupils equally round and reactive to light. Extra-ocular muscles intact. No nystagmus, gaze paresis, anisocoria, miosis, mydriasis, hyphema, scleral injection, conjunctivitis, or pterygium. No rhinorrhea or otorrhea. No pharyngeal discharge or erythema. Neck: Supple, no stridor, bruit, goiter, hepatojugular reflux. Jugular venous pressure is estimated to be 8 cm above the sternal angle of Attila, which is estimated to be 5 cm above the level of the right atrium. Lymph: No anterior/posterior cervical, supraclavicular/infraclavicular, axillary, epitrochlear, or inguinal adenopathy. Chest: Symmetric rise and fall with respirations. Lungs: Coarse breath sounds bilaterally. No audible expiratory wheeze, egophony, pectoriloquy, increase in tactile fremitus, or flatness/dullness to percussion at the bases. Heart: RRR, S1 and S2 noted. No S3 or S4 summation gallop noted. No tripartite friction rub. Grade II/ early systolic murmur @ LLSB without radiation to the carotids, axilla, or back, and which remains invariant in regards to the respiratory cycle. Abdomen: Soft, non-tender, non-distended. No rebound, guarding, Bernbae's sign, or organomegaly. Bowel sounds sounds auscultated in all 4 quadrants. Extremities: No clubbing, cyanosis, or edema. 2+ pedal pulses bilaterally. Skin: No decubitus ulcer, exanthem, or enanthem. Neurology: Alert and oriented to person, place, time, and situation. DTR+ and symmetric. 5/5 motor strength in all 4 extremities, both proximally and distally. No pronator drift. No facial droop. Urology: + irvin catheter with 500 cc of clear yellow urine. No urethral discharge. Psychiatry: No suicidal ideation. No homicidal ideation. Results & Data Results & Data Vital Signs (Past 12 Hours) Vital Signs Temp Pulse Pulse Resp BP Pulse Ox O2 Del Method 05/11/24 10:43 36.8 C 88 17 138/96 94 High Flow Nasal Cannula 05/11/24 09:58 BiPAP, High Flow Nasal Cannula 05/11/24 08:32 58 L 21 100 05/11/24 02:53 66 15 100 05/11/24 02:37 37.0 C 60 15 115/75 100 CPAP O2 Flow Rate FiO2 05/11/24 10:43 8 05/11/24 09:58 05/11/24 08:32 80 05/11/24 02:53 60 05/11/24 02:37 Laboratory Results ABG 7.32 / 82 / 62 / 42 / 88% O2 sat on BIPAP with FIO2 = 0.40, I / E, 20 / 6 (05/09/2024, 10:31am). Na 145, K 4.5, BUN 23, creatinine 0.9, CO2 44, glucose 104 (05/10/2023, 9:09am). Hb 13.0, MCV 100.2, MCHC 30.1 (05/09/2024, 9:09am). Coronavirus OC43+ (04/30/2024, 8:58pm). PG Care Time/CCT Total # of Minutes Spent Total Time Spent with Patient: Total time spent is greater than 50% in coordination of care (as documented) at patient's floor/unit and/or counseling patient: Coding Level of Care Code 44977 SUB INP/OBS CARE 2/35MIN Diagnoses Metabolic encephalopathy G93.41 Acute and chronic respiratory failure with hypoxia J96.21 CHF exacerbation I50.9 Respiratory failure J96.90 Pleural effusion J90 Hypoxia R09.02"
[2024-05-12 07:16] VITALS: BP 135/83; TEMP 97.9
[2024-05-12 08:47] VITALS: RESP 17; O2SAT 94
[2024-05-12 09:03] VITALS: PULSE 104
--- NOTE | 2024-05-12 09:04 | Discharge Summary ---
"Discharge Summary Date of Service May 12, 2024 Principal Dx & Hospital Course #1 = Principal Diagnosis (1) Metabolic encephalopathy: (2) Acute and chronic respiratory failure with hypoxia: (3) CHF exacerbation: (4) Respiratory failure: (5) Pleural effusion: (6) Hypoxia: (7) Hospice care patient: Plan 78 years old male with PMH of FULL CODE @ home, obesity with BMI 35.8 (height 177.8 cm; weight 113.3 kg), RONNELL non-compliant with BIPAP, obesity hypoventilation syndrome with pCO2 >45 mm Hg, chronic macrocytic, hypochromic anemia with baseline Hb range unknown, CAD, paroxysmal AFIB on warfarin, T2DM with HbA1c 6.1% (05/01/2024, 5:29am), diabetic peripheral neuropathy, chronic venous stasis, chronic hypoxic respiratory failure on chronic home O2 (2-2.5 liters/minute via nasal cannula), who was admitted to [facility] on 04/30/2024, after being found down at home for an undetermined amount of time. The patient was admitted to the inpatient hospitalist service @ [facility] on 04/30 with the following diagnosis: 1. Acute (non-COVID)-on-chronic hypoxic respiratory failure, PERSISTENT on discharge date 05/12/2024, with patient requiring BIPAP to maintain O2 sat 94% (05/12/2024, 8:12am). 2. Acute toxic metabolic encephalopathy, RESOLVED Acute Hypoxic Respiratory Failure | [place] OC43 Underlying RONNELL/OHS, BiPAP Non-compliant - Patient with acute non-COVID PNA - CT Chest: no PE, +ground glass opacities/septal thickening, R>L pleural effusion with associated compressive atelectasis - Multiple potential infectious sources on presentation (urine, lungs, etc.) s/p 7 day course of Ceftriaxone 05/01/2024 - 05/08/2024 - Normal baseline O2 use 2-2.5 L, inconsistent BiPAP use at home was extubated on 05/03/2024 Patient hoping to get new mask for home which is smaller and more comfortable (like the one here) - Sputum culture, BCx and UCx negative. Completed Azithromycin - Pulmonary consultation: Continue Bumex 1 mg Q12h - Currently on BiPAP but weans to 9 liters per minute O2 via nasal cannula --- Requiring BiPAP use day/night Goals of Care 05/05: After extensive conversation, patient confirmed FULL CODE status 05/10: Patient consistently desaturates to the low 80s when taking off his supplemental oxygen to eat/drink; patient will most probably not be able to wean off supplemental oxygen in the near future; patient remains too weak to stand up from a seated position in bed, let alone pivot from a standing position, or even take 1 step after standing up. The lack of clinical improvement in patient's respiratory condition is very unreassuring that patient can be discharged to any outside SNF for meaningful improvement in his bedbound state. I subsequently spoke with the patient regarding his wishes in terms of being resuscitated (e.g., FULL CODE) or not being resuscitated (e.g., DNR/DNI), and patient deferred to his son (Guido Cortez, ) and his son's (Wei Cortez, ). I subsequently spoke with Mr. Guido Cortez on 05/10/2024, and he deferred to his Wei. I subsequently spoke with Ms. Wei Cortez on 05/10/2024, and she concurred that patient should be discharged back to his home with DNR/DNI code status, and that home hospice services resume in the next 1-2 days. Ms. Wei Cortez further stated that the reason for Mr. Guido Cortez's reticence about affirming DNR/DNI code status, followed by D/C back to patient's home with resumption of home hospice services is because Mr. Guido Cortez's mother 3 years ago, and Mr. Guido Cortez is still having a hard time accepting his mother's 3 years ago, and hence, Mr. Guido Cortez is having a hard time with having the patient's code status be revised from FULL CODE to DNR/DNI, followed by discharge back to his home with resumption of home hospice services in the next 1-2 days. To this end, Ms. Wei Cortez stated that she would arrive back home later in the afternoon hours of 05/10/2024, and would speak with Mr. Guido Cortez at that time regarding patient's code status be revised from FULL CODE to DNR/DNI, followed by discharge back to his home with resumption of home hospice services in the next 1-2 days, and that she would call me back later in the afternoon / evening hours of 05/10/2024 regarding her conversation with Mr. Guido Cortez. 05/11: I did not speak directly with Ms. Wei Cortez, and instead, I spoke with [facility] Mandrel Puller Ms. Pushpa Lehman, who did speak on the phone with Ms. Wei Cortez earlier in the morning hours of 05/11/2024, and who affirmed that the patient will be discharged back to his home with home hospice services. To coordinate such a discharge, Quentin Dominik recommended that patient be discharged on 05/12/2024 to ensure that all equipment/devices needed for patient to resume his home hospice services in a timely manner once patient arrives back to his home. I concur 100% with Ms. Lehman. Hence, patient will remain in [facility] Tele bed #206-1 today, 05/11/2024, on CPAP support. 05/12: Patient is being discharged back to his home today, 05/12/2024, with resumption of home hospice services, including BIPAP and tylenol 650mg (20.3 mL) PO q4 prn pain or fever, #1,015 mL, no refills (transmitted electronically to [id number] ([place], [place]) today, 05/12/2024. Hypotension, RESOLVED - in the setting of acute illness Altered mental status, RESOLVED - Present on admission, most likely secondary to CO2 retention/metabolic encephalopathy - Continues to wax and wane - CT imaging negative for acute pathology - MRI; no acute or subacute stroke DMT2 with HbA1c 6.1% (05/01/2024, 5:29am) - Hx of t2DM on metformin and Jardiance - held on admission - ISS - goal BG 140-180 VTE ppx: Heparin Diet: Regular, T2DM. Easy to chew. Dispo: PT/O (deferred eval today due to pt being on 9 liters/minute O2 via nasal cannula) NOTE: Prior progress notes from Hospitalist Service cite CHF as an integral part of patient's past medical history. However, patient's sole TTE (05/01/2024, 10:43pm TTE) reveals normal LVEF 60-65%, normal LV wall thickness, normal RV systolic function, mildly dilated LA. Hence, I cannot affirm / confirm that this patient suffers from CHF. Discharge time, 35 minutes. Of this time period, 18 minutes were spent in coordinating patient's discharge. Admission HPI Per Admitting Provider 78 yo male PMHx CAD, HFpEF, Afib on warfarin, T2DM w/peripheral neuropathy, OHS, chronic venous stasis, chronic hypoxic respiratory failure on chronic home O2 (2-2.5L) admitted after being found down at home for an undetermined amount of time. Collateral provided by [id number] states patient was in his usual state of health this morning. He attempted to take a nap in his recliner and seems to have fallen out. History is otherwise limited due to intubated/sedated state. He was hospitalized at [facility] from 10/04/23 to 10/15/23 for what seems to be a similar presentation of respiratory failure. At that time Echo was performed that showed EF of 64%, anterolateral, lateral, inferolateral, and inferior hypokinesis, no LVH, biatrial enlargement, calcified aortic valve w/o stenosis, MR, TR, elevated pulmonary arterial pressure, dilated IVC. Cr on discharge was 0.99. Was discharged on BiPAP and Lasix 40mg BID. ED course: Enroute to hospital patient's respiratory status progressively declined. BiPAP was initiated enroute. On arrival to the hospital pt was listless and ultimately intubated EKG afib w/RVR later regular rate Labs remarkable for mild leukocytosis, macrocytic anemia, subtherapeutic INR, hypercarbia, elevated lactate, mild troponin elevation, elevated BNP, non- COVID19 coronavirus +, infected appearing UA Imaging: no acute head pathology, chest imaging + for b/l pleural effusion, abdomen CT demonstrates stable 3.8cm adrenal mass (noted during hospitalization at [place]) Discharge Exam Constitutional General: Comfortable, coherent, cooperative. Wide awake and alert. Not confused, lethargic, or obtunded. Patient speaks in complete, fluent, and articulate sentences without pause, interruption, cough, or wheeze. HEENT: Normocephalic, atraumatic. Pupils equally round and reactive to light. Extra-ocular muscles intact. No nystagmus, gaze paresis, anisocoria, miosis, mydriasis, hyphema, scleral injection, conjunctivitis, or pterygium. No rhinorrhea or otorrhea. No pharyngeal discharge or erythema. Neck: Supple, no stridor, bruit, goiter, hepatojugular reflux. Jugular venous pressure is estimated to be 8 cm above the sternal angle of Attila, which is estimated to be 5 cm above the level of the right atrium. Lymph: No anterior/posterior cervical, supraclavicular/infraclavicular, axillary, epitrochlear, or inguinal adenopathy. Chest: Symmetric rise and fall with respirations. Lungs: Coarse breath sounds bilaterally. No audible expiratory wheeze, egophony, pectoriloquy, increase in tactile fremitus, or flatness/dullness to percussion at the bases. Heart: RRR, S1 and S2 noted. No S3 or S4 summation gallop noted. No tripartite friction rub. Grade II/ early systolic murmur @ LLSB without radiation to the carotids, axilla, or back, and which remains invariant in regards to the respiratory cycle. Abdomen: Soft, non-tender, non-distended. No rebound, guarding, Bernabe's sign, or organomegaly. Bowel sounds sounds auscultated in all 4 quadrants. Extremities: No clubbing, cyanosis, or edema. 2+ pedal pulses bilaterally. Skin: No decubitus ulcer, exanthem, or enanthem. Neurology: Alert and oriented to person, place, time, and situation. DTR+ and symmetric. 5/5 motor strength in all 4 extremities, both proximally and distally. No pronator drift. No facial droop. Urology: + irvin catheter with 500 cc of clear yellow urine. No urethral discharge. Psychiatry: No suicidal ideation. No homicidal ideation. Discharge Plan Discharge Items Patient Disposition: Hospice - Home Reason For Visit: HYPOXIC RESPIRATORY FAILURE Discharge Diagnosis: Acute (non-COVID)-on-chronic hypoxic respiratory failure Condition on Discharge: Critical Activity: Resume your previous activity Non-emergency contact: Primary Care Provider Call non-emergency contact if: you have any medication questions Follow-up/Referrals: Indra Hare DO [Primary Care Provider] - Diet: Regular Addtl Attending Provider Instructions: See your PCP Dr. Indra Hare regarding resuming your home hospice services. Pending Studies at Discharge: No Stand-Alone Forms: My [facility] Medications and DC Order Prescriptions: New acetaminophen 325 mg/10.15 mL Suspension 650 mg PO Q4H PRN (Reason: fever or pain) Qty: 1015 0RF morphine 20 mg/5 mL (4 mg/mL) solution 5 mg PO Q4H PRN (Reason: pain) Qty: 100 0RF Discontinued metformin 500 mg tablet 500 mg PO QDL metoprolol succinate 100 mg tablet extended release 24 hr 150 mg PO DAILY metformin 1,000 mg tablet 1,000 mg PO AMPM ferrous sulfate 325 mg (65 mg iron) tablet,delayed release (DR/EC) 325 mg PO Q48H Discharge Orders: Discharge Order (Routine); Ordered 05/12/24 Ordered By: Ugo Aguirre/Other Patient Handouts: Managing Type 2 Diabetes Admission Data Admit Date/Time: 04/30/24 22:17 Attending Provider: Ugo Zimmerman Admit Provider: Ruben Ontiveros Primary Care Provider: Indra Hare Other Providers: [facility],Home Healthcare; [facility],Referral Center; Ruben Ontiveros; Mery Pierson Hospital Stay Data Consultations 04/30/24 21:22 ED Decision to Admit Stat 04/30/24 23:27 Consult Director Of Sleep Routine Diagnostic Imagining Performed 04/30/24 21:21 CT abd pelvis IV con only Stat CT angio chest PE protocol Stat CT cervical spine wo con Stat CT head/brain wo con Stat 05/01/24 11:06 MR brain wo con Stat Pending Results Patient Have Any Pending Studies at Discharge: No Discharge Instructions Given to Patient (Per Discharging Provider) See your PCP Dr. Indra Hare regarding resuming your home hospice services. Total Time Total Time Spent Total Time Spent (In Minutes): Discharge time, 35 minutes. Of this time period, 18 minutes were spent in coordinating patient's discharge. Coding Level of Care Code 21313 INP/OBS DISCH >30 MIN Diagnoses Metabolic encephalopathy G93.41 Acute and chronic respiratory failure with hypoxia J96.21 CHF exacerbation I50.9 Respiratory failure J96.90 Pleural effusion J90 Hypoxia R09.02 Hospice care patient Z51.5"
--- NOTE | 2024-05-14 10:10 | Coding Query ---
SEPSIS Patient had Severe Sepsis on admission date 04/30/2024, due to acute (non-COVID OC43 coronavirus-mediated pneumonia)-on-chronic hypoxic respiratory failure, PERSISTENT on discharge date 05/12/2024, with patient requiring BIPAP to maintain O2 sat 94% (05/12/2024, 8:12am). To promote full compliance with coding requirements relating to patient care, physician participation is requested in all cases of golf club manager uncertainty. Please assist us with the question(s) below: In responding to this query, please exercise your independent professional judgement. The fact that a question is asked does not imply that any particular answer is desired or expected. We appreciate your clarification on this issue. The medical record reflects the following clinical findings: Pt admitted with acute on chronic respiratory fallure. Early progress notes document "cannot rule out Sepsis". in setting of pneumonia. Please check below if applicable. Thanks for your help! Selwyn Hayward [facility] ____ ( )Bacteremia (Nonspecific laboratory finding of bacteria in the blood) Specify Organism ( ) Present on Admission ( ) Not present on admission ( ) Unable to clinically determine ( ) Septicemia (Systemic disease associated with the presence of pathogenic microorganisms in the blood): Specify Organism ( ) Present on Admission ( ) Not present on admission ( ) Unable to clinically determine ( ) Sepsis Specify Organism Specify Associated Condition/Diagnosis ( ) Present on Admission ( ) Not present on admission ( ) Unable to clinically determine ( ) Severe Sepsis (Sepsis associated with acute organ dysfunction) Specify Organism Specify Associated Condition/Diagnosis ( ) Present on Admission ( ) Not present on admission ( ) Unable to clinically determine ( ) Septic Shock (Severe sepsis with acute circulatory failure, unexplained by other causes) ( ) Present on Admission ( ) Not present on admission ( ) Unable to clinically determine ( ) Other, patient has: MTDD
== END 2024-05-12 10:02 | disposition hospice, home (50) | DRG 871 ==
LOC: ED 20:25 → 1E 22:17 → SUATTDRO 22:17 → 1E 22:41 → 2E 05-03 20:55